=== PATIENT | female | born 1990 | race Caucasian/White ===

== ENCOUNTER 2017-08-28 17:16 | Emergency (ER) | payer MEDICAID, SELFPAY ==
[2017-08-28 17:17] VITALS: BP 139/89; PULSE 111; RESP 18; TEMP 36.4; O2SAT 100; BMI 23.8
--- NOTE | 2017-08-28 17:33 | EKG12_ITS ---
Test Reason : ANXIETY Blood Pressure : / mmHG Vent. Rate : 102 BPM Atrial Rate : 102 BPM P-R Int : 134 ms QRS Dur : 062 ms QT Int : 340 ms P-R-T Axes : 077 077 012 degrees QTc Int : 443 ms Sinus tachycardia Otherwise normal ECG Confirmed by MARK JO, EVERETTE ([id number]), makeup editor DANIS MEDINA ([id number]) on 09/01/2017 1:37:54 PM Referred By: JANICE Confirmed By:EVERETTE FLORES MD
--- NOTE | 2017-08-28 17:59 | ED.DCSUM_ITS ---
- ER Visit Summary Date of Service: 08/28/17 Chief Complaint: Shortness of breath History of Present Illness: The patient is a 27 F presents to the emergency department with rather sudden onset shortness of breath and heart racing. Patient states that she was driving. 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 They were going to the pharmacy to last picker prescription. She states when driving, she got the sudden onset sensation as if she could not breathe. She would like her heart was racing. She became nauseated. The patient has a history of anxiety and felt that this was similar. Her concern is that she has an underlying dental infection. She thinks that this may be bringing on her anxiety. She denies any recent stressors. She did take a Excedrin, but states that she has had caffeine before without issue. She does smoke. She states that her symptoms have improved since arriving here. She has had no chest pain. She denies any pleuritic pain. She has no history of pulmonary embolus. Physical Examination: Vital signs reviewed General: Well-nourished, well-developed Head: Normocephalic, atraumatic Eyes: Pupils equal and reactive, extraocular muscles intact Neck, supple, no lymphadenopathy Heart: Regular rate and rhythm Respiratory: No distress, clear bilaterally Abdomen: Soft, nontender, nondistended, no peritoneal signs Back: Nontender Extremities: Nontender, no edema, no cords Skin: Normal color no rash Neuro: Alert and oriented, no focal or lateralizing deficits Test Results: [] Emergency Department Course and Treatment: The patient's symptoms do seem more consistent with an acute anxiety reaction. She was mildly tachycardic. I did obtain an EKG which is unremarkable. The patient was observed. She has no progression of symptoms. She was concerned about dental infection. She does appear to have a periapical abscess of tooth 11. There is no Bud angina. There is no expanding cellulitis. The patient was counseled on her reassuring exam. I am going to start her on anti-inflammatories and antibiotics for her dental infection. She is given dental resources for follow-up. The patient will be discharged home. Treatment Plan: [] Disposition: Discharge Impression:. Acute anxiety reaction-resolved 2. Periapical abscess tooth 11 This note was generated with [employer] software. It may contain incorrect words, spelling, and punctuation that were not noted in review of the chart prior to signing ED Disposition - Plan for ED Patient: Disposition: Home or Assisted Living Chief Complaint: Anxiety Instructions: ED Cavity Dental, ED Panic Attack Prescriptions: Naproxen [Naprosyn] 500 mg PO BID #20 tab Penicillin V Potassium 500 mg PO 4X/DAY #40 tab Referrals: Care Physician,No Primary [Primary Care Provider] -
[2017-08-28 18:24] VITALS: PULSE 77; RESP 14; O2SAT 99
== END 2017-08-28 18:25 | disposition home or self-care (01) ==
PROVIDERS: Emergency Provider Emergency Medicine
DX: F41.1 Generalized anxiety disorder (principal); K04.7 Periapical abscess without sinus; Z72.0 Tobacco use
CPT/HCPCS: 93005; 99282

== ENCOUNTER 2017-08-29 22:22 | Emergency (ER) | payer MEDICAID, SELFPAY ==
[2017-08-29 22:23] VITALS: BP 119/72; PULSE 81; RESP 14; TEMP 36.7; O2SAT 99; BMI 24.2
--- NOTE | 2017-08-29 23:05 | ED.VISSUMM ---
- ER Visit Summary Date of Service: 08/29/17 Chief Complaint: Facial swelling History of Present Illness: The patient is a 27 F who has had left maxillary focal dental pain for 3 days. She was seen here yesterday and placed on penicillin which she has taken 4 doses of already, however today her face is swollen on the left. She states she noticed some burning in that tooth after taking the penicillin, and seemed to have the swelling more so after taking the pills and so she was wondering if this was a reaction to the pill. He states the pain is actually a little better and not worse. She denies any fevers or systemic symptoms. She does have some problems opening her mouth due to pain however. She denies any rash or itching or tongue swelling or throat swelling or trouble breathing. Physical Examination: Well-appearing in no distress, vital signs are normal. She does have mild trismus but I am easily able to evaluate the tooth in question, which is #12. It is decayed to the gumline, it appears to be fairly focal decay. It is tender especially at the lateral gingiva, which is a little irritated but there is no bleeding. Her swelling is lateral to this, but in palpating intraorally and externally, although she is tender, there is no discrete abscess and there is no pointing in the mouth. Test Results: n/a Emergency Department Course and Treatment: I do not think attempting to aspirate with a needle will yield any purulent material. I think she should be switched to clindamycin from the penicillin, but because it will probably work better, not because I think this is a reaction to it. I discussed that with her, in addition to its higher chance of causing antibiotic associated diarrhea and C. difficile, which is why I recommend her eat yogurt 1-2 cups daily, or to take a daily probiotic while on the antibiotic. Treatment Plan: Discontinue penicillin, clindamycin 300 mg 4 times daily ?10 days, dental follow-up. Also given OMFS if worse. Disposition: Discharge home Impression: Dental abscess This note was generated with [employer] dictation software. It may contain incorrect words, spelling, and punctuation that were not noted in review of the chart prior to signing ED Disposition - Plan for ED Patient: Disposition: Home or Assisted Living Chief Complaint: Dental Instructions: ED Abscess Dental Prescriptions: Clindamycin [Cleocin] 300 mg PO 4X/DAY #80 cap Referrals: Dentist,Your [STAFF PHYSICIAN] - Jian Fermin DDS [STAFF PHYSICIAN] -
[2017-08-29] MEDS: Clindamycin HCl 150 MG Capsule 450 MG PO (23:18)
== END 2017-08-29 23:24 | disposition home or self-care (01) ==
PROVIDERS: Emergency Provider Emergency Medicine
DX: K04.7 Periapical abscess without sinus (principal); Z79.2 Long term (current) use of antibiotics; Z72.0 Tobacco use
CPT/HCPCS: 99283

== ENCOUNTER 2017-12-08 07:30 | Emergency (ER) | payer MEDICAID, SELFPAY ==
[2017-12-08 07:31] VITALS: BP 105/64; PULSE 87; RESP 16; TEMP 36.7; O2SAT 98; BMI 23.1
--- NOTE | 2017-12-08 07:47 | US_ITS ---
STUDY: FIRST TRIMESTER OBSTETRICAL ULTRASOUND REASON FOR EXAM: Female, 27 years old. Right pelvic pain. LMP: September 21, 2017. TECHNIQUE: Transvaginal PRIOR ULTRASOUND: None. FINDINGS: There is visualization of a single gestational sac in a normal intrauterine position. The mean sac diameter (MSD) measures 2.2 cm, indicating an estimated gestational age (EGA) of 7 weeks, 2 days. The gestational sac shape is within normal limits. There is a visualized yolk sac. The yolk sac measures 3 mm. The placenta is non-visualized. There is visualization of a live embryo. The crown-rump length (CRL) measures 1.15 cm, indicating an estimated gestational age (EGA) of 7 weeks, 3 days. There is demonstrated cardiac activity with a heart rate of 146 bpm. A tiny area of decreased attenuation is seen adjacent to the gestational sac suggestive of a small subchronic bleed. The estimated gestation age (EGA) by LMP is 6 weeks, 6 days. The estimated date of delivery (FELICIANO) by LMP is July 28, 2018. The estimated gestation age (EGA) by US is 7 weeks, 3 days. The estimated date of delivery (FELICIANO) by US is July 24, 2018. The uterus measures 10.2 cm x 7.4 cm x 6.3 cm. There is no demonstrated uterine fibroid. The cervix is closed. The right ovary measures 3.1 cm x 1.5 cm x 1.9 cm. There is no right ovarian cyst. There is no visualized right adnexal mass or complex lesion. The left ovary measures 2.1 cm x 1.3 cm x 2.2 cm. There is no left ovarian cyst. There is no visualized left adnexal mass or complex lesion. Small amount of free fluid is seen in the cul-de-sac. US/Transvaginal w/Preg US IMPRESSION: Single live intrauterine gestation with a mean gestational age of 7 weeks and 3 days. Small subchorionic bleed. Electronically Signed: Paulino Madison MD at 9:58 EDT Tel [phone], Service support ,
--- NOTE | 2017-12-08 07:47 | EKG12_ITS ---
Test Reason : SOB Blood Pressure : / mmHG Vent. Rate : 069 BPM Atrial Rate : 069 BPM P-R Int : 118 ms QRS Dur : 072 ms QT Int : 384 ms P-R-T Axes : 024 074 046 degrees QTc Int : 411 ms Normal sinus rhythm with sinus arrhythmia Normal ECG Confirmed by MARK JO, EVERETTE ([id number]), communications editor DANIS MEDINA ([id number]) on 12/10/2017 2:14:32 PM Referred By: TRINA Confirmed By:EVERETTE FLORES MD
--- NOTE | 2017-12-08 07:49 | RAD_ITS ---
STUDY: X-RAY CHEST REASON FOR EXAM: Female, 27 years old. Shortness of breath and flank pain. The patient is 6 weeks . Appropriate shielding was performed. TECHNIQUE: Single AP portable view of the chest. COMPARISON: None. FINDINGS: The lungs are clear and expanded. Scattered calcified granulomas. There is no demonstrated pleural abnormality. Normal size heart. Normal mediastinum and alfredo. Normal visualized pulmonary arteries. Normal visualized aortic arch and descending thoracic aorta. Normal visualized thoracic spine. Normal visualized ribs, clavicles, and shoulders. There is no demonstrated abnormality of the visualized soft tissue structures of the upper abdomen. RAD/Chest 1 View (Portable) IMPRESSION: Normal x-ray examination of the chest. Electronically Signed: Paulino Madison MD at 8:19 EDT Tel [phone], Service support ,
[2017-12-08] MEDS: Ondansetron 4 MG/2 ML Vial IV (08:04)
[2017-12-08] MEDS: 0.9% Normal Saline 1,000 ML 1000 ML IV (08:04)
[2017-12-08 08:20] LABS: Mucous, Urine 0 SEEN /hpf (<or=2+)
[2017-12-08 08:24] LABS: Color, Urine Yellow (Yellow); Glucose, Dipstick Normal (Normal); Ketone-Dipstick Negative (Negative); Leukocyte Esterase-Dipstick 100 /ul (Negative); Nitrite-Dipstick Positive (Negative); Occult Blood-Urine 25 /ul (Negative); Protein-Dipstick Negative (Negative); Specific Gravity, Urine 1.015 (1.002-1.030); Urine Bilirubin Dipstick Negative (Negative); Urine Clarity Sl. Cloudy (Clear); Urine Urobilinogen Normal (Normal)
[2017-12-08 08:25] LABS: Absolute Lymphocyte Count 1.12 X10^3/ul (0.83-4.51); Absolute Neutrophil Count 11.3 X10^3/uL (2.0-7.7); Basophil# 0.02 X10^3/uL; Basophil% 0.1 % (0-1); Eosinophil# 0.02 X10^3/uL; Eosinophils% 0.1 % (0-5); Hemoglobin 12.6 g/dl (12.0-15.0); Lymphocyte # 1.12 X10^3/ul (4.0); Lymphocyte % 8.4 % (19-41); Mean Corp Hgb Conc 33.2 g/gl (32-36); Mean Corpuscular Hgb 29.6 pg (27.0-32.0); Mean Corpuscular Volume 89.2 fL (81-99); Mean Platelet Vol. 9.6 fl (6.2-12.0); Monocyte% 6.7 % (0-10); Neutrophil # 11.32 X10^3/uL (2.7-7.7); Neutrophil % 84.6 % (47-70); Platelet Count 267 K/mm3 (150-450); RBC Distribution Width CV 12.6 % (11.6-14.6); RBC Distribution Width SD 40.1 fl (35.1-43.9); Red Blood Count 4.26 M/mm3 (4.2-5.4); White Blood Count 13.4 K/mm3 (4.4-11.0)
[2017-12-08 08:28] LABS: POSITIVE COUNT NO; POSITIVE DIFFERENTIAL NO; POSITIVE MORPHOLOGY NO
[2017-12-08 08:37] LABS: AST(SGOT) 20 U/L (15-37); Alanine Aminotransfer ALT/SGPT 22 U/L (13-56); Albumin, Serum 3.8 g/dL (3.2-5.0); Alkaline Phosphatase 59 U/L (45-117); Anion Gap 10 (5-15); BUN 7 mg/dL (7-18); BUN/Creat Ratio 11.3 RATIO (10-20); Bilirubin, Direct 0.11 mg/dL (0.00-0.30); Calcium,Total 8.2 mg/dL (8.5-10.1); Chloride 106 mmol/L (98-107); Creatinine, Serum 0.62 mg/dL (0.55-1.02); EST Glomerular Filtration Rate 121 mL/min (>60); Est Glom Filt Rate - Afr Amer 146 mL/min (>60); Estimated Creatinine Clearance 115.61 ml/min; Globulin 3.6 g/dL (2.2-4.2); Glucose 89 mg/dL (74-106); Lipase 85 U/L (73-393); Potassium 4.2 mmol/L (3.5-5.1); Protein, Total 7.4 g/dL (6.4-8.2); Red Blood Cells-Urine 0-5 SEEN /hpf (0-5); Sodium Level 141 mmol/L (136-145); Squamous Epithelial Cells - UA 0-5 SEEN /hpf (5-10); White Blood Cells 5-10 SEEN /hpf (0-5)
[2017-12-08 08:38] LABS: Bacteria 4+ /hpf (None Seen)
--- NOTE | 2017-12-08 08:38 | ED.VISSUMM ---
- ER Visit Summary Date of Service: 12/08/17 Chief Complaint: Right flank pain History of Present Illness: The patient is a [address] Tin Rodriguez and does not have a primary care physician. She is a at approximately 6 weeks . She reports that she has had 4 positive tests at home. She has not seen Dr. Tin Rodriguez for this yet. Patient reports that she has right flank pain that began at 2:00 this morning. It is an intermittent pain that lasts minutes at a time that she describes as sharp. It is 7 out of 10 at worst and she is pain-free currently. Is worsened by nothing relieved by nothing. She denies any vaginal bleeding or discharge. No dysuria or frequency. Patient reports that when the pain was severe that it made her short of breath. The pain has now resolved and she remained short of breath. She denies any chest pain. No fever or chills. Patient reports she has been nauseated and vomited twice. No blood or emesis. She has upper abdominal pain began after her vomiting. Physical Examination: Vitals: Stable. Afebrile. General: Well-nourished and well-developed. Head: Normocephalic atraumatic. Neck: Supple, no lymphadenopathy. No JVD. Nontender. Cardiovascular: Regular rate and rhythm. No murmurs. Respiratory: No respiratory distress. Clear to auscultation bilaterally. Abdominal: Soft, mild epigastric and suprapubic tenderness to palpation, nondistended, normal bowel sounds. No guarding, rebound, or peritoneal signs. Back: Nontender. No CVA tenderness. Extremities: Nontender, no edema. Skin: Normal color, no rash. Neurologic: Alert and oriented ?3. Cranial nerves II through XII are intact. Normal strength and sensation. Psych: Normal affect. Test Results: EKG is sinus arrhythmia 69 with acute changes. Chest x-ray is normal. Blood type is O+. This was not repeated. CBC is marked for a white count of 13.4 with 85 segmented neutrophils and 8 lymphocytes. Chem-7 is more for calcium of 8.2. LFTs are normal. Lipase is normal. UA has leukocytes, nitrites, occult blood, 5-10 white blood cells, and 4+ bacteria. Quantitative hCG is 37,165. Transvaginal ultrasound shows an intrauterine at 7 weeks 3 days with heart tones 146. There is a small subchorionic hemorrhage. Emergency Department Course and Treatment: Patient was given dose of Zofran IV and is resting comfortably. Urine was sent for culture and she was given dose of Rocephin IV. Treatment Plan: Patient was discussed with Dr. Tin Rodriguez. She will be discharged on Macrobid. Instructed to follow-up as previously scheduled. Return to the emergency department for any worsening symptoms. Disposition: To home in improved and stable condition. Impression: 1. First trimester . 2. UTI. This note was generated with [employer] software. It may contain incorrect words, spelling, and punctuation that were not noted in review of the chart prior to signing ED Disposition - Plan for ED Patient: Chief Complaint: Flank Pain Instructions: ED UTI Cystitis Female Prescriptions: Ondansetron [Zofran Odt] 4 mg PO Q8H PRN PRN #10 tablet PRN Reason: Nausea Nitrofurantoin Macrocrystals [Macrobid] 100 mg PO Q12 #14 capsule Referrals: Evelia Askew MD [STAFF PHYSICIAN] - 1 Week if not improving
[2017-12-08] MEDS: Ceftriaxone 1 GM/50 ML BAG IV (09:35)
[2017-12-08 10:36] VITALS: BP 106/63; PULSE 88; RESP 18; O2SAT 100
== END 2017-12-08 10:36 | disposition home or self-care (01) ==
PROVIDERS: Emergency Provider Emergency Medicine
DX: O23.41 Unspecified infection of urinary tract in pregnancy, first trimester (principal); Z3A.01 Less than 8 weeks gestation of pregnancy; O20.9 Hemorrhage in early pregnancy, unspecified; Z72.0 Tobacco use
CPT/HCPCS: 71045; 76817; 80048; 80076; 81001; 83690; 84702; 85025; 87086; 87088; 87186; 93005; 96361; 96365; 96374; 96375; 99283; J7030; J7050; A4216; J2405

== ENCOUNTER → 2017-12-18 18:21 | Outpatient (CLI) | payer MEDICAID, SELFPAY ==
[2017-12-18 20:36] LABS: Chlamydia Trachomatis by PCR Negative (Negative); Neisserai gonorrhoeae by PCR Negative (Negative); Probe Check PASS; Sample Adequacy Control PASS; Specimen Processing Control PASS
[2017-12-24 09:57] LABS: HPV Reflexed? NOT INDICATED
== END ==
PROVIDERS: Visit Provider Obstetrics & Gynecology
DX: O99.331 Smoking (tobacco) complicating pregnancy, first trimester (principal); Z12.4 Encounter for screening for malignant neoplasm of cervix; Z3A.00 Weeks of gestation of pregnancy not specified
CPT/HCPCS: 87086; 87088; 87491; 87591; 88175; G0145

== ENCOUNTER → 2018-02-26 13:58 | Outpatient (CLI) | payer MEDICAID, SELFPAY ==
--- NOTE | 2018-02-26 14:01 | US_ITS ---
STUDY: SECOND AND THIRD TRIMESTER OBSTETRICAL ULTRASOUND REASON FOR EXAM: Female, 27 years old. Anatomy screening. LMP: 10/16/2017 TECHNIQUE: Transabdominal PRIOR ULTRASOUND: 12/18/2017 FINDINGS: There is a single intrauterine fetus. The fetus is in a breech presentation. There is demonstrated cardiac activity with a heart rate of 155 bpm. There is a normal amniotic fluid volume. The largest amniotic fluid pocket measures 4 x 4.5 cm. The placenta is posterior with a marginal previa. There are Grade 0 placental changes. The cervix measures 4.1 cm in length. The bilateral adnexal regions are normal. BIOMETRY: BPD: 4 cm: 18 weeks, 1 days HC: 15.6 cm: 18 weeks, 4 days AC: 13.3 cm: 18 weeks, 6 days FL: 2.8 cm: 18 weeks, 4 days CI: 76 FL/BPD: 70 FL/HC: FL/AC: 21 HC/AC: 1.17 age by current US: 18 weeks, 4 days. FELICIANO by current US: 07/26/2018. Estimated weight: 250 grams, +/- 37 grams, 26 %. age by prior US: 18 weeks, 6 days. FELICIANO by prior US: 07/24/2018. Age by LMP: 19 weeks, 0 days. FELICIANO by LMP: 07/23/2018. ANATOMY: Gender: Male Cranium: Normal lateral ventricles. Normal choroid plexus. Normal cerebellum. Normal cisterna magna. Normal face, nose and lips. Chest: Normal 4-chamber heart. Abdomen/Pelvis: Normal diaphragm. Normal stomach. Normal abdominal wall. Normal cord insertion. Normal 3 vessel cord. Normal kidneys. Normal bladder. Spine: Normal cervical spine. Normal thoracic spine. Normal lumbar spine. Normal sacrum. Extremities: Normal bilateral upper extremities. Normal bilateral lower extremities. US/OB Anatomy Scan IMPRESSION: 1. Single live intrauterine in breech presentation 18 week 4 day gestation with an FELICIANO of 07/26/2018. Appropriate interval growth. 2. Posterior placenta with marginal previa. No abruption. 3. Cervix length 4.1 cm, closed internal cervical os. 4. Normal amniotic fluid volume by inspection. 5. Estimated weight 250 g or 26 percentile. 6. Normal anatomic review. Electronically Signed: Barbra Peterson MD at 3:26 EDT , Service support ,
== END ==
PROVIDERS: Visit Provider Nurse Practitioner Women's Health
DX: O09.90 Supervision of high risk pregnancy, unspecified, unspecified trimester (principal); O34.40 Maternal care for other abnormalities of cervix, unspecified trimester; Z98.890 Other specified postprocedural states; O99.330 Smoking (tobacco) complicating pregnancy, unspecified trimester; Z3A.00 Weeks of gestation of pregnancy not specified
CPT/HCPCS: 76805

== ENCOUNTER 2018-03-22 18:29 | Emergency (ER) | payer MEDICAID, SELFPAY ==
[2018-03-22 18:29] VITALS: BP 123/88; PULSE 78; RESP 16; TEMP 36.6; BMI 27.2
--- NOTE | 2018-03-22 19:01 | ED.VISSUMM ---
- ER Visit Summary Date of Service: 03/22/18 Chief Complaint: Dental pain History of Present Illness: The patient is a 27 F who is 5-1/2 months presents with dental pain for a few weeks however worse today. No fever chills the pain radiates higher in her job than usual. No problems swallowing. No difficulty with movement of the eye. Physical Examination: Otherwise unremarkable exam, she has a gravid abdomen which is nontender. She has dental tenderness over the right upper lateral incisor. This is a decayed tooth. No periapical abscess no significant facial swelling. Emergency Department Course and Treatment: Patient is tell me her pain is somewhat worse than normal and it radiates into her jaw worse than before, this may be an early infection I will treat with penicillin. Discharge stable condition Impression: [Odontalgia] This note was generated with [employer] dictation software. It may contain incorrect words, spelling, and punctuation that were not noted in review of the chart prior to signing ED Disposition - Plan for ED Patient: Disposition: Home or Assisted Living Chief Complaint: Dental Instructions: ED Tooth Pain Prescriptions: Penicillin V Potassium 500 mg PO 4X/DAY #40 tab Referrals: Evelia Askew MD [Primary Care Provider] - 3-5 Days
--- NOTE | 2018-03-22 19:04 | ED.DCSUM_ITS ---
- ER Visit Summary Date of Service: 03/22/18 Chief Complaint: Dental pain History of Present Illness: The patient is a 27 F who is 5-1/2 months presents with dental pain for a few weeks however worse today. No fever chills the pain radiates higher in her job than usual. No problems swallowing. No difficulty with movement of the eye. Physical Examination: Otherwise unremarkable exam, she has a gravid abdomen which is nontender. She has dental tenderness over the right upper lateral incisor. This is a decayed tooth. No periapical abscess no significant facial swelling. Emergency Department Course and Treatment: Patient is tell me her pain is somewhat worse than normal and it radiates into her jaw worse than before, this may be an early infection I will treat with penicillin. Discharge stable condition Impression: [Odontalgia] This note was generated with [employer] dictation software. It may contain incorrect words, spelling, and punctuation that were not noted in review of the chart prior to signing ED Disposition - Plan for ED Patient: Disposition: Home or Assisted Living Chief Complaint: Dental Instructions: ED Tooth Pain Prescriptions: Penicillin V Potassium 500 mg PO 4X/DAY #40 tab Referrals: Evelia Askew MD [Primary Care Provider] - 3-5 Days
== END 2018-03-22 19:20 | disposition home or self-care (01) ==
PROVIDERS: Emergency Provider Emergency Medicine; Family Provider Obstetrics & Gynecology; PCP Obstetrics & Gynecology
DX: K08.89 Other specified disorders of teeth and supporting structures (principal); K02.9 Dental caries, unspecified
CPT/HCPCS: 99282

== ENCOUNTER → 2018-04-27 11:45 | Outpatient (CLI) | payer MEDICAID, SELFPAY ==
[2018-04-27 11:36] VITALS: BMI 29.0
[2018-04-27 12:44] LABS: Absolute Lymphocyte Count 1.79 X10^3/ul (0.83-4.51); Basophil# 0.02 X10^3/uL; Basophil% 0.2 % (0-1); Eosinophil# 0.08 X10^3/uL; Eosinophils% 0.7 % (0-5); Hematocrit 32.9 % (37-47); Hemoglobin 10.8 g/dl (12.0-15.0); Lymphocyte # 1.79 X10^3/ul (4.0); Lymphocyte % 16.5 % (19-41); Mean Corp Hgb Conc 32.8 g/gl (32-36); Mean Corpuscular Hgb 31.4 pg (27.0-32.0); Mean Corpuscular Volume 95.6 fL (81-99); Mean Platelet Vol. 9.9 fl (6.2-12.0); Monocyte# 0.92 X10^3/uL; Monocyte% 8.5 % (0-10); Neutrophil # 8.02 X10^3/uL (2.7-7.7); Neutrophil % 73.8 % (47-70); Platelet Count 257 K/mm3 (150-450); RBC Distribution Width CV 12.6 % (11.6-14.6); RBC Distribution Width SD 42.2 fl (35.1-43.9); Red Blood Count 3.44 M/mm3 (4.2-5.4); White Blood Count 10.9 K/mm3 (4.4-11.0)
[2018-04-27 12:50] LABS: POSITIVE COUNT NO; POSITIVE DIFFERENTIAL NO; POSITIVE MORPHOLOGY NO
[2018-04-27 13:16] LABS: Glucose Challenge Gest 1H 50g 85 mg/dL (70-140)
[2018-04-27 13:54] LABS: HIV - WCH Non-Reactive (Nonreactive); Rubella IgG 210.9 IU/mL
[2018-04-28 12:51] LABS: HEPATITIS B SURFACE AG Negative (Negative)
[2018-04-30 02:02] LABS: Rapid Plasmin Reagin (RPR) NONREACTIVE (NONREACTIVE)
== END ==
PROVIDERS: Family Provider Obstetrics & Gynecology; PCP Obstetrics & Gynecology; Referring Provider Nurse Practitioner Women's Health; Visit Provider Nurse Practitioner Women's Health
DX: Z34.90 Encounter for supervision of normal pregnancy, unspecified, unspecified trimester (principal); O99.331 Smoking (tobacco) complicating pregnancy, first trimester; F17.200 Nicotine dependence, unspecified, uncomplicated; Z3A.00 Weeks of gestation of pregnancy not specified
CPT/HCPCS: 36415; 82950; 85025; 86592; 86703; 86762; 86850; 86900; 87340

== ENCOUNTER → 2018-06-02 12:31 | Outpatient (CLI) | payer MEDICAID, SELFPAY ==
[2018-05-24 15:03] VITALS: BMI 29.0
--- NOTE | 2018-06-02 12:33 | US_ITS ---
STUDY: SECOND AND THIRD TRIMESTER OBSTETRICAL ULTRASOUND - LIMITED REASON FOR EXAM: Female, 27 years old. growth. LMP: September 21, 2017. PRIOR ULTRASOUND: December 08, 2017 and February 26, 2018. TECHNIQUE: Transabdominal and Transvaginal TECHNICAL QUALITY: Adequate. FINDINGS: There is a single intrauterine fetus. The fetus is in a breech presentation. There is demonstrated cardiac activity with a heart rate of 140 bpm. There is increased amniotic fluid volume consistent with polyhydramnios. The largest amniotic fluid pocket measures 6.03 cm. The amniotic fluid index (JENNIFER) is 22.3 cm. The placenta is posterior in location and is not low lying. The inferior aspect of the placenta lies 2.4 cm from the internal os. There are Grade 1 placental changes. The cervix measures 3.38 cm cm in length. BIOMETRY: BPD: 8.13 cm: 32 weeks, 5 days HC: 30.23 cm: 33 weeks, 5 days AC: 28.36: 32 weeks, 3 days FL: 6.31 cm: 32 weeks, 5 days Age by LMP: 32 weeks, 0 days. FELICIANO by LMP: July 28, 2018. age by prior US: 32 weeks, 4 days. FELICIANO by prior US: July 24, 2018. age by current US: 33 weeks, 0 days. FELICIANO by current US: July 21, 2018. Estimated weight: 2011 grams, +/- 294 grams, 37 percentile. US/OB Limited With Biometrics IMPRESSION: 1. Live single intrauterine at 33 weeks, 0 days. FELICIANO is July 21, 2018. There is adequate interval growth since the initial ultrasound. 2. EFW of 2011 g. 3. Polyhydramnios. The JENNIFER is 22.3 cm. 4. Posterior grade 1 placenta. 5. Breech presentation. Electronically Signed: Héctor Victor DO at 16:30 EST Tel [phone], Service support ,
== END ==
PROVIDERS: Family Provider Obstetrics & Gynecology; PCP Obstetrics & Gynecology; Referring Provider Obstetrics & Gynecology; Visit Provider Obstetrics & Gynecology
DX: O40.9XX0 Polyhydramnios, unspecified trimester, not applicable or unspecified (principal); Z3A.00 Weeks of gestation of pregnancy not specified
CPT/HCPCS: 76816

== ENCOUNTER → 2018-06-11 17:25 | Outpatient (CLI) | payer MEDICAID, SELFPAY ==
[2018-06-11 13:50] VITALS: BMI 29.7
[2018-06-11 18:23] LABS: Amphetamine Urine VISTA NEGATIVE (<1000 ng/mL); Barbiturate Urine VISTA NEGATIVE (< 200 ng/mL); Benzodiazepine Urine VISTA NEGATIVE (< 200 ng/mL); Cocaine Urine VISTA NEGATIVE (< 300 ng/mL); Ecstacy Urine VISTA NEGATIVE (< 500 ng/mL); Methadone Urine VISTA NEGATIVE (< 300 ng/mL); PCP Urine VISTA NEGATIVE (< 25 ng/mL); THC Urine VISTA NEGATIVE (< 50 ng/mL); Vista UDS pH Range 6
== END ==
PROVIDERS: Referring Provider Obstetrics & Gynecology; Visit Provider Obstetrics & Gynecology
DX: O99.330 Smoking (tobacco) complicating pregnancy, unspecified trimester (principal); F17.200 Nicotine dependence, unspecified, uncomplicated; Z3A.00 Weeks of gestation of pregnancy not specified
CPT/HCPCS: 80307

== ENCOUNTER → 2018-07-05 17:59 | Outpatient (CLI) | payer MEDICAID, SELFPAY ==
[2018-07-05 16:59] VITALS: BMI 29.7
== END ==
PROVIDERS: Referring Provider Nurse Practitioner Women's Health; Visit Provider Nurse Practitioner Women's Health
DX: O09.90 Supervision of high risk pregnancy, unspecified, unspecified trimester (principal); Z3A.00 Weeks of gestation of pregnancy not specified
CPT/HCPCS: 87081

== ENCOUNTER 2018-07-22 06:55 | Inpatient (IN) | payer MEDICAID, SELFPAY ==
[2018-07-19 15:27] VITALS: BMI 29.7
[2018-07-22 07:30] VITALS: BMI 31.1
[2018-07-22] MEDS: Lactated Ringers 1,000 ML 50 ML IV ×3 (07:38→15:22)
[2018-07-22] MEDS: Oxytocin 30 units/NS 500 ml 30 UNITS/500 ML IV.SOLN IV (08:34)
[2018-07-22 11:33] LABS: Hematocrit 36.9 % (37-47); Hemoglobin 11.8 g/dl (12.0-15.0); Mean Corpuscular Hgb 30.6 pg (27.0-32.0); Mean Corpuscular Volume 95.6 fL (81-99); Mean Platelet Vol. 10.9 fl (6.2-12.0); Platelet Count 232 K/mm3 (150-450); RBC Distribution Width CV 13.3 % (11.6-14.6); RBC Distribution Width SD 45.8 fl (35.1-43.9); Red Blood Count 3.86 M/mm3 (4.2-5.4); Scan Indicated on CBC? Y/N NO; White Blood Count 9.6 K/mm3 (4.4-11.0)
[2018-07-22] MEDS: fentaNYL-bupivacaine (epidural) 100 ML BAG EPIDURAL (11:56)
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
--- NOTE | 2018-07-22 16:17 | PCM.OB.VAG ---
- Problem List (1) Polyhydramnios affecting Status: Acute Comment: Weekly NST with growth US q4wk- Needs growth US at 39 weeks. (2) Status: Acute Qualifiers: Weeks of gestation: 39 weeks Qualified Code(s): Z3A.39 - 39 weeks gestation of Comment: genetic, carrier, and ntd screening declined. anatomy scan reviewed. (3) History of LEEP (loop electrosurgical excision procedure) of cervix complicating Status: Acute Qualifiers: Trimester: third trimester Qualified Code(s): O34.43 - Maternal care for other abnormalities of cervix, third trimester; Z98.890 - Other specified postprocedural states Comment: check cervical length (4) Tobacco use complicating Status: Acute Qualifiers: Trimester: third trimester Qualified Code(s): O99.333 - Smoking (tobacco) complicating , third trimester Comment: quit. (5) Supervision of high-risk Status: Acute Qualifiers: Trimester: third trimester Qualified Code(s): O09.93 - Supervision of high risk , unspecified, third trimester Comment: PRR FELICIANO 07/21/18 boy PC godfrey Godfrey Vaginal Delivery Maternal Presentation: Active Labor iol poly Method of Induction: Pitocin Amniotic Membrane Rupture Type: Artificial Amniotic Fluid Description: Clear Final FELICIANO: 07/30/18 Gestational age: 39 Weeks and 3 Days Date of Procedure: 07/22/18 Pre-Operative Diagnosis: iol poly Post-Operative Diagnosis: same Surgery/ Procedure Performed: Spontaneous Vaginal Delivery Type of Anesthesia: Epidural Description of Procedure: Patient began pushing and delivered the head in the CHEVY presentation. The head was delivered atraumatically and a loose nuchal cord ?1 was identified and easily reduced over the 's head The anterior and posterior shoulders delivered without complication followed by the rest of the infant and the was placed on the maternal abdomen. Delayed cord clamping was employed for approximately 60 seconds. Cord was clamped and cut and gentle traction was applied to the cord and the placenta delivered spontaneously immediately following it was noted to be intact with three-vessel cord. The perineum and vagina were inspected and noted to have no laceration. Patient and tolerated delivery well. Presentation: CHEVY Placental Delivery Description: Spontaneous
[2018-07-22] MEDS: Oxytocin 30 units/NS 500 ml 30 UNITS/500 ML IV.SOLN 334 UNITS IV (16:57)
[2018-07-22] MEDS: Oxytocin 30 units/NS 500 ml 30 UNITS/500 ML IV.SOLN 167 UNITS IV (17:28)
[2018-07-22 20:30] VITALS: BP 120/65; PULSE 96; RESP 16; TEMP 37.1; O2SAT 97
[2018-07-23 00:11] VITALS: BP 100/56; PULSE 84; RESP 16; TEMP 37; O2SAT 98
[2018-07-23 04:45] VITALS: BP 103/59; PULSE 83; RESP 14; TEMP 36.8; O2SAT 97
[2018-07-23] MEDS: Naproxen 250 MG Tablet PO (06:58)
[2018-07-23 07:30] VITALS: BP 104/59; PULSE 73; RESP 16; TEMP 36.8; O2SAT 97
[2018-07-23 11:50] VITALS: BP 107/57; PULSE 83; RESP 14; TEMP 36.7; O2SAT 97
[2018-07-23] MEDS: Senna/Docusate Sodium 1 Tablet PO (12:08)
[2018-07-23 15:55] VITALS: BP 96/46; PULSE 77; RESP 18; TEMP 36.8; O2SAT 97
--- NOTE | 2018-07-23 17:45 | PCM.PN.OB ---
Subjective: doing well no complaints - Physical Exam General: Alert, Oriented x3 Vital Signs Temp Pulse Resp BP Pulse Ox 98.3 F 77 18 96/46 L 97 07/23/18 15:55 07/23/18 15:55 07/23/18 15:55 07/23/18 15:55 07/23/18 15:55 Oxygen Delivery Method Room Air Weight: 181 lb 10.574 oz Body Mass Index (BMI) 31.1 Intake and Output for Last 24 Hours 07/21/18 07/22/18 07/23/18 23:59 23:59 23:59 Intake Total 3508 / 3508 Output Total 2200 / 2200 700 / 700 Balance 1308 / 1308 -700 / -700 Medical Necessity - Tobacco Use Smoking Status: Former smoker Assessment/Plan All Active Problems (Last Reviewed 07/19/18 @ 15:27 by Tosin Killian) Polyhydramnios affecting (Acute) (Acute) History of LEEP (loop electrosurgical excision procedure) of cervix complicating (Acute) Tobacco use complicating (Acute) Supervision of high-risk (Acute) Low lying placenta nos or without hemorrhage, third trimester (Resolved) Marginal placenta previa (Resolved) (Resolved) s/p routine care [facility] lisa
[2018-07-23 20:20] VITALS: BP 99/62; PULSE 85; RESP 16; TEMP 37.1; O2SAT 99
[2018-07-24 02:20] VITALS: BP 107/56; PULSE 82; RESP 16; TEMP 36.7; O2SAT 96
[2018-07-24 07:33] VITALS: BP 102/55; PULSE 78; RESP 16; TEMP 36.7; O2SAT 99
--- NOTE | 2018-07-24 07:37 | PCM.PN.OB ---
Subjective: doing well still having signfiicant anxiety symptos no depression - Physical Exam General: Alert, Oriented x3 Vital Signs Temp Pulse Resp BP Pulse Ox 98.0 F 78 16 102/55 L 99 07/24/18 07:33 07/24/18 07:33 07/24/18 07:33 07/24/18 07:33 07/24/18 07:33 Oxygen Delivery Method Room Air Weight: 181 lb 10.574 oz Body Mass Index (BMI) 31.1 Intake and Output for Last 24 Hours 07/22/18 07/23/18 07/24/18 23:59 23:59 23:59 Intake Total 3508 / 3508 Output Total 2200 / 2200 700 / 700 Balance 1308 / 1308 -700 / -700 Medical Necessity - Tobacco Use Smoking Status: Former smoker Assessment/Plan All Active Problems (Last Reviewed 07/19/18 @ 15:27 by Tosin Killian) Polyhydramnios affecting (Acute) (Acute) History of LEEP (loop electrosurgical excision procedure) of cervix complicating (Acute) Tobacco use complicating (Acute) Supervision of high-risk (Acute) Low lying placenta nos or without hemorrhage, third trimester (Resolved) Marginal placenta previa (Resolved) (Resolved) s/p routine care anxiety- start zoloft
--- NOTE | 2018-07-24 07:39 | DCINST_ITS ---
Discharge Diet: No Restrictions Discharge Activity: Return to Normal Activity, May not drive while taking narcotic pain medications., May Shower May resume sexual activity in: 4-6 weeks Call your doctor if your incision/area has: Continuous Slow Oozing, Sudden Increased Bleeding, Increased Pain/ Swelling, Increased Redness, Foul Smelling Discharge Additional Instructions: If you experience any of the following, contact your healthcare provider. * Bleeding that soaks a pad every hour for 2 hours * Fever 100.4 or higher * Unrelieved incision or abdominal pain * Swelling, redness, discharge or bleeding from your incision or episiotomy site * Your incision begins to separate * Problems urinating (including inability to urinate or burning while urinating). * Visual changes * Severe headache * Flu-like symptoms * Pain or redness in one of both of your breasts * Pain, warmth, tenderness or swelling in your legs, especially the calf area * Frequent nausea and vomiting * Symptoms of depression or anxiety If you experience any of the following, call 911 or go to the nearest Emergency Room. * Chest pain * Problems breathing * Seizure activity * Partial or complete paralysis of a body part, slurred speech, weakness or drooping of the face, or a sudden inability to walk or hold your balance Allergies/Adverse Reactions: Allergies sulfamethoxazole [From Bactrim] Allergy (Verified 07/22/18 07:36) Rash trimethoprim [From Bactrim] Allergy (Verified 07/22/18 07:36) Rash Medications to take at Discharge vitamin#30 30 mg iron-10 mg iron-folic acid 1 mg-omg3 capsule 1 cap PO DAILY cap 05/24/18 Sertraline HCl [Zoloft] 50 mg PO DAILY #30 tablet 07/24/18 The following prescriptions were given: Sertraline HCl [Zoloft] 50 mg PO DAILY #30 tablet Please Follow Up With: Evelia Askew MD - [phone] When: Call to make an appointment with your doctor in 6 weeks. If you had elevated Blood pressure or 4th degree laceration you will need to be seen in 2 weeks. Test Results: Test results from this visit will be discussed in further detail at your follow- up appointment, if applicable.
[2018-07-24 11:37] VITALS: BP 104/56; PULSE 64; RESP 16; TEMP 36.7; O2SAT 99
== END 2018-07-24 12:05 | disposition home or self-care (01) | DRG 560 ==
PROVIDERS: Admitting Provider Obstetrics & Gynecology; Visit Provider Obstetrics & Gynecology
DX: O69.81X0 Labor and delivery complicated by cord around neck, without compression, not applicable or unspecified (principal); O40.3XX0 Polyhydramnios, third trimester, not applicable or unspecified; Z3A.39 39 weeks gestation of pregnancy; Z37.0 Single live birth; Z87.891 Personal history of nicotine dependence; O99.344 Other mental disorders complicating childbirth; F41.9 Anxiety disorder, unspecified
CPT/HCPCS: 59025; 59050; 85027; 86850; 86900; 99218; J7120; G0378

== ENCOUNTER 2019-10-07 17:09 | Emergency (ER) | payer MEDICAID, SELFPAY ==
[2018-09-08 15:41] VITALS: BMI 31.1
[2019-10-07 17:09] VITALS: BP 102/67; PULSE 134; RESP 16; TEMP 36.5; O2SAT 98
[2019-10-07 17:10] VITALS: BP 102/67; PULSE 136; RESP 18; TEMP 36.5; O2SAT 98; BMI 24.0
--- NOTE | 2019-10-07 17:39 | ED.DCSUM_ITS ---
History of Present Illness Chief Complaint: Sore Throat Informant: Patient Onset: Yesterday Context: Gradual Onset Timing: Continuous Worsened by: Swallowing Associated Symptoms: Headache, - - left ear pain Narrative: Patient is a 29-year-old female with no significant past medical history presenting with sore throat, left-sided ear pain/pressure, intermittent headache and subjective fever. Patient states her symptom started yesterday. She states her son was sick about 2 weeks ago with a viral illness. She has not had any fever like symptoms today. States that sore throat and ear pain is all on the left side. Is painful to swallow. She is not taken any [id number] medications for her symptoms. She denies any associated cough, rash, chest pain, nausea, vomiting or abdominal pain. She denies any urinary symptoms. She notes that she works at [employer]. She is wondering if she could have coronavirus. She not had any known exposures. She denies any other complaints at this time. Past Medical History - Allergies and Home Meds Allergies/Adverse Reactions: Allergies sulfamethoxazole [From Bactrim] Allergy (Verified 09/08/18 15:04) Rash trimethoprim [From Bactrim] Allergy (Verified 09/08/18 15:04) Rash Primary Care Physician: Care Physician,No Primary [Primary Care Provider] - Past Medical History: None Surgical History: appendectomy Lives: With Family Smoking Status: Current every day smoker Review of Systems General: Reports: Chills, Fever. Denies: Sweats Eyes: Denies: Visual changes - bilaterally, Diplopia ENT: Reports: Left ear pain, Sore throat. Denies: Right ear pain, Rhinorrhea Cardiovascular: Denies: Chest pain, Palpitations Respiratory: Denies: Dyspnea, Cough, Dyspnea on exertion Gastrointestinal: Denies: Abdominal pain, Nausea, Vomiting, Diarrhea, Melena, Hematochezia Genitourinary: Denies: Dysuria, Hematuria, Frequency Musculoskeletal: Denies: Back pain, Extremity Pain Skin: Denies: Rash, Wounds Neurological: Denies: Headache, Weakness, Numbness Physical Exam Vital Signs/Narrative: Vital Signs Temp Pulse Resp BP Pulse Ox 10/07/19 17:10 97.7 F L 136 H 18 102/67 98 10/07/19 17:09 97.7 F L 134 H 16 102/67 98 Inital Vital Signs reviewed: Yes General: Well nourished, Well developed Head: Normocephalic, Atraumatic Eyes: Perrl, EOMI Ears: Normal external canal, TM's clear. Negative for: Pain with Movement of Right Tragus, Pain with Movement of Left Tragus, Right Mastoid Tenderness, Left Mastoid Tenderness Nose: Normal Inspection, No Rhinorrhea. Negative for: Swollen Turbinates Mouth/Throat: Normal Inspection, Posterior Oropharyngeal Erythema, - - 2 small vesicular lesions noticed in the posterior oropharynx Tonsils: Right Tonsilar Erythema, Left Tonsilar Erythema. Negative for: Right Tonsilar Exudates, Left Tonsilar Exudates, Right Tonsilar Swelling, Left Tonsilar Swelling Neck: Supple, Nontender, No Lymphadenopathy, No Meningismus Cardiovascular: Regular rate, Regular rhythm, No murmurs Respiratory: No distress, CTA bilaterally, Chest nontender Abdomen: Soft, Nontender, Nondistended, Normal bowel sounds Back: Nontender, Normal Inspection Extremities: Nontender, No edema Skin: Normal color, No rash Neurological: Alert, Oriented x3, Cranial nerves II-XII grossly intact, Normal Strength, Normal Sensation Psychological: Normal affect Diagnostic/Tx/Re-eval - Medical Decision Making Patient is evaluated for days of sore throat, left ear pain and subjective fever. Physical exam is consistent with pharyngitis. Strep swab is positive for group A strep. Patient is given Tylenol for pain. On reevaluation she states she is feeling better. She is also given oral Decadron. Patient be treated with Augmentin. She is given first dose in the emergency room. She declines IM Bicillin. Patient is counseled that her presentation is atypical for coronavirus and I do not suspect that she has COVID-19. She is given a work note for today. Patient is counseled on signs and symptoms requiring return to the emergency room. Patient verbalizes agreement and understand this plan. Patient discharged home in stable and improved condition. ED Disposition - Plan for ED Patient: Disposition: Home or Assisted Living Diagnosis: Strep pharyngitis Instructions: ED Pharyngitis Strep Confirmed Prescriptions: Amox/Clavulanate Tablet [Augmentin Tablet] 875 mg PO Q12H #20 tab Transmission Status: Pending to [email or web address] #30 Referrals: Donovan Hurtado MD [STAFF PHYSICIAN] - Additional Instructions: Your swab was positive for strep. I do not think you have coronavirus. Please follow-up with a primary care doctor. Return the emergency room with any worsening symptoms.
[2019-10-07] MEDS: dexAMETHasone 10 MG/ML Vial PO.IVFORM (18:12)
[2019-10-07] MEDS: Acetaminophen 325 MG Tablet 1000 MG PO (18:12)
[2019-10-07 18:54] VITALS: BP 104/60; PULSE 108; O2SAT 97
[2019-10-07] MEDS: Amox/Clavulanate 875 MG Tablet PO (19:02)
== END 2019-10-07 19:13 | disposition home or self-care (01) ==
PROVIDERS: Emergency Provider Emergency Medicine
DX: J02.0 Streptococcal pharyngitis (principal); F17.200 Nicotine dependence, unspecified, uncomplicated
CPT/HCPCS: 87880; 99284

== ENCOUNTER 2020-04-15 12:29 | Emergency (ER) | payer MEDICAID, SELFPAY ==
[2020-04-15 12:30] VITALS: BP 115/69; PULSE 123; RESP 16; TEMP 39.3; O2SAT 99; BMI 22.8
[2020-04-15 12:33] VITALS: BP 115/69; PULSE 123; RESP 16; TEMP 39.3; O2SAT 99
--- NOTE | 2020-04-15 12:59 | ED.VIS.GEN ---
History of Present Illness Chief Complaint: Sore Throat Informant: Patient Onset: Yesterday Context: Sudden Onset Timing: Continuous Quality: Throat pain with change in voice Location: Posterior pharynx Current Severity: Mild Maximum Severity: Moderate Worsened by: Swallowing liquids or solids Relieved by: Nothing Associated Symptoms: Change in voice. Denies trismus and has no upper respiratory symptoms. Narrative: Patient is a 29-year-old woman who presents with sore throat change in voice that started yesterday. She reports document temperature at home of 101.0 ?F. She denies headache, photophobia, neck pain or neck stiffness. She denies rhinorrhea, congestion or postnasal drainage. She denies earache, decreased hearing or drainage from ears. She denies chest pain. She denies shortness of breath or cough. She denies myalgias or arthralgias. She denies exposure to COVID-19. She denies rash. She denies nausea, vomiting diarrhea. She states she lives with her boyfriend who drove her to the emergency department. Prior similar symptoms: No Recent Illness/Hospitalization: No - Past Medical History (1) No significant past medical history Status: Acute Past Medical History - Allergies and Home Meds Allergies/Adverse Reactions: Allergies sulfamethoxazole [From Bactrim] Allergy (Verified 04/15/20 12:33) Rash trimethoprim [From Bactrim] Allergy (Verified 04/15/20 12:33) Rash Primary Care Physician: Care Physician,No Primary [Primary Care Provider] - Prior records reviewed: No Past Medical History: None Surgical History: appendectomy Lives: Spouse/ Significant Other Smoking Status: Current every day smoker Alcohol: None Drugs: None Review of Systems General: Reports: Chills, Fever, Malaise. Denies: Subjective, Sweats Eyes: Denies: Visual changes - bilaterally, Blurred Vision - bilaterally ENT: Reports: Sore throat. Denies: Bilateral ear pain, Rhinorrhea Cardiovascular: Denies: Chest pain, Palpitations Respiratory: Denies: Dyspnea, Cough, Dyspnea on exertion Gastrointestinal: Denies: Abdominal pain, Nausea, Vomiting, Diarrhea Genitourinary: Denies: Dysuria, Hematuria, Frequency Musculoskeletal: Denies: Myalgias, Arthralgias, Neck pain, Back pain Skin: Denies: Rash, Wounds Neurological: Reports: Weakness. Denies: Headache Endocrine: Denies: Polyuria, Polydipsia Physical Exam Vital Signs/Narrative: Vital Signs Temp Pulse Resp BP Pulse Ox 04/15/20 12:33 102.8 F H 123 H 16 115/69 99 04/15/20 12:30 102.8 F H 123 H 16 115/69 99 Inital Vital Signs reviewed: Yes General: Well nourished, Well developed, - - Patient appears ill but not toxic. Head: Normocephalic, Atraumatic Eyes: Perrl, EOMI. Negative for: Pale conjunctiva, Scleral icterus ENT: Moist mucous membranes, No rhinorrhea, TM's clear, - - Tonsils are enlarged. There is exudate noted on the right. There is evidence of peritonsillar cellulitis on the right. There is no obvious evidence of peritonsillar abscess. There is no trismus.. Negative for: Nasal congestion, Sinus tenderness Neck: Supple, Nontender, No JVD. Negative for: No lymphadenopathy Cardiovascular: Regular rhythm, No murmurs, Normal S1, Normal S2, Tachycardia Respiratory: No distress, CTA bilaterally, Chest nontender Abdomen: Soft, Nontender, Nondistended, Normal bowel sounds, No masses. Negative for: Hepatomegaly, Splenomegaly Rectal: Deferred Back: Nontender Extremities: Nontender, No edema Skin: Normal color, No rash, No Trauma. Negative for: Cyanosis, Diaphoresis, Jaundice Neurological: Alert, Oriented x3, Cranial nerves II-XII grossly intact, Normal Strength, Normal Sensation Psychological: Normal affect Diagnostic/Tx/Re-eval 04/15/20 12:40 Mucosa - Throat Group A Streptococcus Rapid Screen - Final Streptococcus Group A Laboratory Results 04/15/20 13:10 WBC 17.2 H RBC 4.36 Hgb 12.8 Hct 39.6 MCV 90.8 MCH 29.4 MCHC 32.3 RDW Std Deviation 42.3 RDW Coeff of Chris 12.7 Plt Count 276 MPV 9.4 Immature Gran % (Auto) 0.500 Neut % (Auto) 84.2 H Lymph % (Auto) 6.1 L [place] % (Auto) 9.0 Eos % (Auto) 0.0 Baso % (Auto) 0.2 Absolute Neuts (auto) 14.5 H Absolute Lymphs (auto) 1.05 Nucleated RBC % 0 White count is elevated with no atypical lymphocytes. Rapid strep is positive. Patient will be treated with antibiotics. She will receive her first dose in the emergency department. - Medical Decision Making Centor score is 4. Rapid strep screen was obtained. CBC was obtained to assess for atypical lymphocytes and his Monospot only has a 5% sensitivity with duration of illness of only 24 hours. Clinically she appears dehydrated. She was given IV fluids. 10 mg of Decadron. Differential diagnosis includes viral pharyngitis/exit-itis, streptococcal tonsillitis, mononucleosis ED Disposition - Plan for ED Patient: Disposition: Home or Assisted Living Diagnosis: Acute streptococcal tonsillitis, Mild dehydration, Peritonsillar cellulitis Instructions: ED Peritonsillar Inf Strep Throat Prescriptions: Amox/Clavulanate Tablet [Augmentin Tablet] 875 mg PO Q12H #20 tab Transmission Status: Pending to [facility] #30 Referrals: Care Physician,No Primary [Primary Care Provider] - Additional Instructions: 1. If you have any drooling, difficulty breathing or inability to open your mouth completely return to the emergency department 2. If there is no improvement in 2 to 3 days follow-up with your PCP or Dr. Dawson Rosado who is on-call for ENT 3. Salt water gargles 6-8 times a day (2 tablespoon of salt in a glass of water.)
[2020-04-15] MEDS: 0.9% Normal Saline 1,000 ML 1000 ML IV (13:16)
[2020-04-15] MEDS: dexAMETHasone 10 MG/ML Vial IV (13:16)
[2020-04-15 13:22] LABS: Absolute Lymphocyte Count 1.05 X10^3/uL (0.83-4.51); Absolute Neutrophil Count 14.5 X10^3/uL (2.0-7.7); Basophil# 0.03 X10^3/uL; Basophil% 0.2 % (0-1); Hematocrit 39.6 % (37-47); Hemoglobin 12.8 g/dL (12.0-15.0); Lymphocyte # 1.05 X10^3/ul (4.0); Lymphocyte % 6.1 % (19-41); Mean Corp Hgb Conc 32.3 g/dL (32-36); Mean Corpuscular Hgb 29.4 pg (27.0-32.0); Mean Corpuscular Volume 90.8 fL (81-99); Mean Platelet Vol. 9.4 fl (6.2-12.0); Monocyte# 1.55 X10^3/uL; NRBC Flagged by Analyzer 0 % (0-5); Neutrophil # 14.51 X10^3/uL (2.7-7.7); Neutrophil % 84.2 % (47-70); POSITIVE DIFFERENTIAL YES; Platelet Count 276 K/mm3 (150-450); RBC Distribution Width CV 12.7 % (11.6-14.6); RBC Distribution Width SD 42.3 fl (35.1-43.9); Red Blood Count 4.36 M/mm3 (4.2-5.4); White Blood Count 17.2 K/mm3 (4.4-11.0)
[2020-04-15 13:23] LABS: Differential Indicated SCAN CRITERIA MET
[2020-04-15 13:44] LABS: Platelet Estimate ADEQUATE (ADEQ)
[2020-04-15] MEDS: Amox/Clavulanate 875 MG Tablet PO (13:57)
[2020-04-15 14:37] VITALS: PULSE 75; RESP 18
[2020-04-17 10:02] LABS: Pathologist Review Reviewed
== END 2020-04-15 14:39 | disposition home or self-care (01) ==
PROVIDERS: Emergency Provider Emergency Medicine
DX: J03.00 Acute streptococcal tonsillitis, unspecified (principal); E86.0 Dehydration; J36 Peritonsillar abscess; F17.200 Nicotine dependence, unspecified, uncomplicated
CPT/HCPCS: 85025; 87880; 96361; 96374; 99284; J7030

== ENCOUNTER 2021-08-31 15:18 | Emergency (ER) | payer MEDICAID, SELFPAY ==
[2021-08-31 15:20] VITALS: BP 139/80; PULSE 130; RESP 18; TEMP 36.6; O2SAT 100; BMI 23.1
--- NOTE | 2021-08-31 15:33 | EDS_ITS ---
HPI HPI - URI History of Present Illness Chief Complaint: Sore Throat Detail of Chief Complaint: Sore throat started 0300 and white spots Informant: patient Onset/Context/Timing Onset: Today (At 0 300) Context: Sudden Onset Timing: Continuous Quality: Pain Location: Throat Maximum Severity: Moderate Worsened by: Swallowing, Eating Solids and Drinking Liquids Relieved by: - (Nothing) Associated Symptoms Associated Symptoms: Negative for Nasal Congestion, Headache, Myalgias, Nausea, Vomiting, Diarrhea, Shortness of Breath, Chest Pain, Nonproductive cough, Hemoptysis and Productive Cough Narrative Narrative: Patient is 31-year-old woman who presents because of sore throat with white spots noted on her tonsils. This started at 0300. She has 2 children that were sick. They were not tested for strep. She denies rhinorrhea, congestion or postnasal drainage. She denies cough or shortness of breath. She denies a traumatic fever, heart murmur or SBE. She denies rash. She states she has slight change in voice. She is able to swallow. She denies drooling. She denies cardiac or respiratory symptoms. She denies GI symptoms. Prior similar symptoms: No Recent Illness/Hospitalization: No ROS ROS ED Constitutional Constitutional ED: Denies chills, fever(s), subjective, sweats or weight loss Eyes Eyes: Denies blurry vision, change in vision or diplopia ENT ENT ED: Reports sore throat and other Details: Additional information HPI ; Denies ear pain or rhinorrhea Cardiovascular Cardiovascular: Denies chest pain, palpitations or racing heartbeat Respiratory/Chest Respiratory/Chest: Denies cough or dyspnea Gastrointestinal Gastrointestinal: Denies abdominal pain, nausea or vomiting Musculoskeletal Musculoskeletal: Denies arthralgias or myalgias Integumentary Denies rash Neurologic Neurologic: Denies headache(s) Allergic/Immunologic Allergic/Immunologic ED: Denies mouth swelling or tongue swelling [facility] Medical History (Updated 08/31/21 @ 16:[address] Lucio Blanco MD) Abnormal Papanicolaou smear of cervix with positive human papilloma virus (HPV) test Anxiety Fracture Home Medications penicillin V potassium 500 mg PO 4X/DAY #40 tab 08/31/21 [Rx Last Taken Unknown] Allergy/AdvReac Type Severity Reaction Status Date / Time sulfamethoxazole Allergy Rash Verified 03/26/22 15:22 [From Bactrim] trimethoprim [From Bactrim] Allergy Rash Verified 08/31/21 15:22 Family History Mother Hypertension Grandmother Asthma Hypertension Hyperlipemia Breast cancer Grandfather Diabetes Aunt Seizures Uncle Hyperlipemia Surgical History Hx LEEP (loop electrosurgical excision procedure), cervix, (~2014) Hx of appendectomy (~1998) Social History adopted: No household members: family housing: house number of children: 1 current occupational status: employed current occupation: [employer] pets and animals: No history of recent travel: No Smoking Status: Current every day smoker tobacco type: cigarettes second hand exposure: Yes alcohol intake: never substance use type: does not use seatbelt use: sometimes do you feel safe at home: Yes additional social history: Babatunde- Boyfriend EXAM Physical Exam Const Vital Signs: 08/31/21 15:20 Temperature 97.9 F Temperature Source Temporal Pulse Rate 130 H Respiratory Rate 18 Blood Pressure 139/80 H Blood Pressure Mean 99 Pulse Ox 100 Oxygen Delivery Method Room Air Positive well nourished and well developed General Appearance ED: well developed and NAD; Negative for cyanotic, diaphoretic or pallor HEENT Reports TM's clear and moist mucous membranes normocephalic and atraumatic; Negative for scalp tenderness Face and Sinus: Negative for sinus tenderness, maxillary instability or facial tenderness External Ear: external ears normal, mastoids normal and no preauricular adenopathy External Auditory Canal: EAC's normal Tympanic Membrane ED: Yes TM's clear Throat: tonsils abnormal and posterior oropharynx abnormal Positive for exudates; Negative for posterior oropharynx normal Eyes PERRL and EOMs intact bilaterally General Eye ED: Negative for pale conjunctiva or scleral icterus Neck no lymphadenopathy, supple, no meningeal signs and no JVD Resp normal respiratory effort and clear to auscultation bilaterally Cardio S1 normal heart sound, S2 normal heart sound and no murmurs Rate: tachycardic Rhythm: regular rhythm Neuro oriented x3 and CN's II-XII intact bilaterally Sensorium / Orientation: alert Psych mental status grossly normal Skin General Skin Exam: Negative for jaundice or pallor Lesions: no lesions Rashes: no rashes MDM MDM MDM Narrative Medical decision making narrative: Patient Centor score is 2. Will obtain rapid strep. If positive treat otherwise await results of culture. Lab Data Attestation: I reviewed the patient's lab results. Lab results narrative: Rapid strep test was positive. Patient was given option of intramuscular penicillin versus oral penicillin. She prefers oral penicillin. Discharge Plan Triage Chief Complaint: Sore Throat ED Provider: Lucio Blanco Dx/Rx/DC Orders Clinical Impression: Acute non-recurrent streptococcal tonsillitis Instructions: ED Peritonsillar Inf Strep Throat Prescriptions: New penicillin V potassium 500 MG tablet 500 mg PO 4X/DAY Qty: 40 RF: 0 Primary Care Provider: Care Physician,No Primary Referrals: Care Physician,No Primary [Primary Care Provider] - Doctor,Your [STAFF PHYSICIAN] - 1 Week if not improving Activity Restrictions/Additional Instructions: 1. Salt water gargles 6-8 times a day 2. Take antibiotics till gone 3. If you are unable to swallow or have difficulty breathing return to the emergency department immediately Disposition Disposition: Home, Self Care
== END 2021-08-31 17:00 | disposition home or self-care (01) ==
PROVIDERS: Emergency Provider Emergency Medicine; Visit Provider Emergency Medicine
DX: J03.00 Acute streptococcal tonsillitis, unspecified (principal); F17.210 Nicotine dependence, cigarettes, uncomplicated
CPT/HCPCS: 87880; 99282

== ENCOUNTER → 2021-12-26 | Outpatient (CLI) | payer MEDICAID, SELFPAY ==
[2021-12-26 10:40] LABS: Absolute Lymphocyte Count 1.89 X10^3/uL (0.83-4.51); Absolute Neutrophil Count 7.1 X10^3/uL (2.0-7.7); Basophil# 0.03 X10^3/uL; Basophil% 0.3 % (0-1); Eosinophil# 0.07 X10^3/uL; Eosinophils% 0.7 % (0-5); Hematocrit 37.1 % (37-47); Hemoglobin 12.1 g/dL (12.0-15.0); Lymphocyte # 1.89 X10^3/ul (0.83-4.51); Mean Corp Hgb Conc 32.6 g/dL (32-36); Mean Corpuscular Hgb 29.8 pg (27.0-32.0); Mean Corpuscular Volume 91.4 fL (81-99); Mean Platelet Vol. 9.4 fl (6.2-12.0); Monocyte# 0.77 X10^3/uL; Monocyte% 7.7 % (0-10); NRBC Flagged by Analyzer 0 % (0-5); Neutrophil # 7.14 X10^3/uL (2.7-7.7); Neutrophil % 71.9 % (47-70); Platelet Count 283 K/mm3 (150-450); RBC Distribution Width CV 13.8 % (11.6-14.6); RBC Distribution Width SD 46.5 fl (35.1-43.9); Red Blood Count 4.06 M/mm3 (4.2-5.4); White Blood Count 9.9 K/mm3 (4.4-11.0)
[2021-12-26 11:30] LABS: NATERA MAILED SPECIMEN
[2021-12-26 11:32] LABS: Amphetamine Urine VISTA NEGATIVE (<1000 ng/mL); Barbiturate Urine VISTA NEGATIVE (< 200 ng/mL); Benzodiazepine Urine VISTA NEGATIVE (< 200 ng/mL); Cocaine Urine VISTA NEGATIVE (< 300 ng/mL); Ecstacy Urine VISTA NEGATIVE (< 500 ng/mL); Methadone Urine VISTA NEGATIVE (< 300 ng/mL); PCP Urine VISTA NEGATIVE (< 25 ng/mL); THC Urine VISTA NEGATIVE (< 50 ng/mL); Vista UDS pH Range 6
[2021-12-26 11:51] LABS: HIV - WCH Non-Reactive (Nonreactive); Hepatitis B Surface Antigen Non-Reactive (Nonreactive); Hepatitis C Antibody Non-Reactive (Nonreactive); Rubella IgG Reactive (Nonreactive); Syphilis Antibodies Non-reactive
[2021-12-30 01:06] LABS: Chlamydia By Nucleic Acid AMP Negative (Negative)
[2021-12-30 09:14] LABS: Gonococcus By Nucleic Acid AMP Negative (Negative)
[2021-12-30 16:12] LABS: HPV APTIMA, High Risk Negative (Negative)
== END | disposition home or self-care (01) ==
LOC: PAVLAB 10:19
PROVIDERS: Referring Provider Obstetrics & Gynecology; Visit Provider Obstetrics & Gynecology
DX: Z34.81 Encounter for supervision of other normal pregnancy, first trimester (principal)
CPT/HCPCS: 36415; 80307; 85025; 86703; 86762; 86780; 86803; 86850; 86900; 86901; 87077; 87086; 87088; 87186; 87340; 87491; 87591; 87624; 88175; G0145

== ENCOUNTER → 2021-12-31 | Outpatient (CLI) | payer MEDICAID, SELFPAY | END | disposition home or self-care (01) | LOC: LABSPEC 11:58 | PROVIDERS: Referring Provider Obstetrics & Gynecology; Visit Provider Obstetrics & Gynecology | DX: O46.90 Antepartum hemorrhage, unspecified, unspecified trimester (principal) | CPT/HCPCS: 87077; 87086; 87088; 87186 ==

== ENCOUNTER 2022-01-05 15:55 | Emergency (ER) | payer MEDICAID, SELFPAY ==
[2022-01-05 15:56] VITALS: BP 102/58; PULSE 97; RESP 15; TEMP 37; O2SAT 99; BMI 22.9
--- NOTE | 2022-01-05 16:31 | EDS_ITS ---
HPI History of Present Illness Chief Complaint: Nausea/Vomiting Narrative Narrative: Patient presents with nausea, vomiting, and vaginal bleeding that became worse today. Patient states she has been unable to keep anything down today. Patient states she is approximately 11 weeks . Patient states she did have some bleeding the other day that resolved. Patient states now she has some mild brown vaginal discharge. Patient admits to some tightness in her abdomen. Patient states nothing makes her symptoms better nothing makes them worse. Patient admits to some occasional back pain. Patient denies any hematemesis or coffee-ground emesis. Patient denies any diarrhea, melena, or hematochezia. [facility] Medical History Abnormal Papanicolaou smear of cervix with positive human papilloma virus (HPV) test Anxiety Fracture History of placenta previa History of polyhydramnios Home Medications [id number] 60 mg-1 mg oral combo pack 1 pkg PO DAILY 12/25/21 [History Last Taken Unknown] cephalexin 500 mg capsule 500 mg PO Q6 #20 CAPSULES 01/05/22 [Rx Last Taken Unknown] Allergy/AdvReac Type Severity Reaction Status Date / Time sulfamethoxazole Allergy Rash Verified 01/05/22 15:58 [From Bactrim] trimethoprim [From Bactrim] Allergy Rash Verified 01/05/22 15:58 Family History Mother Hypertension Grandmother Asthma Hypertension Hyperlipemia Breast cancer Grandfather Diabetes Aunt Seizures Uncle Hyperlipemia Surgical History Hx LEEP (loop electrosurgical excision procedure), cervix, (~2014) Hx of appendectomy (~1998) Social History adopted: No household members: family and children housing: house number of children: 2 current occupational status: employed current occupation: [employer] pets and animals: Yes pets and animals: dog(s) history of recent travel: No sexually active: Yes Smoking Status: Current every day smoker tobacco type: cigarettes Tobacco: How many years used: 13 second hand exposure: Yes quit status: considering quitting alcohol intake: never substance use type: does not use well-balanced diet: about half the time caffeine: Yes Type: carbonated beverages Number of servings: 2 during the past year weight has: decreased > 10 lbs what type of physical activity do you participate in: none concepcion/quaker: None seatbelt use: sometimes do you feel safe at home: Yes additional social history: Franck- BF Godfrey- 6yo [facility]- 1yo ROS ROS ED Constitutional Constitutional ED: Denies chills or fever(s) Eyes Eyes: Denies blurry vision or change in vision ENT ENT ED: Denies rhinorrhea or sore throat Cardiovascular Cardiovascular: Denies chest pain or palpitations Respiratory/Chest Respiratory/Chest: Denies cough or dyspnea Gastrointestinal Gastrointestinal: Reports abdominal pain, nausea and vomiting Genitourinary Genitourinary ED: Denies dysuria or hematuria Musculoskeletal Musculoskeletal: Reports back pain; Denies neck pain Integumentary Denies abscess or rash Neurologic Neurologic: Denies headache(s) or weakness Allergic/Immunologic Allergic/Immunologic ED: Denies mouth swelling or urticaria EXAM Physical Exam Const Vital Signs: 01/05/22 15:56 Temperature 98.6 F Temperature Source Temporal Pulse Rate 97 Respiratory Rate 15 Blood Pressure 102/58 L Blood Pressure Mean 72 Pulse Ox 99 Oxygen Delivery Method Room Air Positive well nourished and well developed General Appearance ED: well developed and NAD HEENT Reports moist mucous membranes Neck supple and no JVD Resp normal respiratory effort and clear to auscultation bilaterally Cardio regular rate, regular rhythm and no murmurs GI normal to inspection, nondistended, normoactive bowel sounds Palpation: soft and tender LLQ; Negative for guarding or rebound tenderness present Extremity normal to inspection General Extremety ED: Negative for edema or tenderness General Extremity: Negative for edema Neuro oriented x3, CN's II-XII intact bilaterally and no sensory deficits noted Sensorium / Orientation: alert Motor Exam: strength 5/5 throughout Psych mental status grossly normal Skin no rashes or lesions noted MDM MDM MDM Narrative Medical decision making narrative: Patient was given IV fluids and Zofran here. CBC shows a mild leukocytosis of 12.3. Comprehensive metabolic profile was within normal limits. Quantitative hCG was [address]. Pelvic ultrasound was obtained. There may be a subchorionic hemorrhage but was otherwise within normal limits. There is a single live intra uterine at 11 weeks 3 days. heart tones were 150. This was interpreted by the radiologist and reviewed by myself. Urinalysis shows ketones of 150. Leukocyte esterase was 100 with positive nitrites and 50-100 white blood cells. There is 4+ bacteria. Patient was given a dose of Rocephin here. Patient was given a prescription for Keflex. Urine culture was ordered. Patient was advised of her findings. Patient was instructed to follow-up with her SOAP GRINDER in 5 to 7 days. Patient was instructed return if worse in any way. Patient understood and was agreeable with the plan. All questions were answered. Lab Data Attestation: I reviewed the patient's lab results. Labs: Laboratory Results - last 24 hr 01/05/22 01/05/22 01/05/22 16:50 16:50 16:50 WBC 12.3 H RBC 3.98 L Hgb 12.2 Hct 36.2 L MCV 91.0 MCH 30.7 MCHC 33.7 RDW Std Deviation 46.2 H RDW Coeff of Chris 13.6 Plt Count 292 MPV 9.7 Immature Gran % (Auto) 0.300 Neut % (Auto) 92.6 H Lymph % (Auto) 3.9 L [place] % (Auto) 3.0 Eos % (Auto) 0.0 Baso % (Auto) 0.2 Absolute Neuts (auto) 11.3 H Absolute Lymphs (auto) 0.48 L Nucleated RBC % 0 Differential Comment SEE COMMENT Platelet Estimate ADEQUATE RBC Morphology N CHROM Anisocytosis RARE Macrocytosis RARE Sodium 136 Potassium 3.5 Chloride 107 Carbon Dioxide 24.0 Anion Gap 5 BUN 11 Creatinine 0.59 Estim Creat Clear Calc 122.04 Est GFR (MDRD) Af Amer 151 Est GFR (MDRD) Non-Af 124 BUN/Creatinine Ratio 18.6 Glucose 93 Calcium 8.6 Total Bilirubin 0.40 AST 17 ALT 17 Alkaline Phosphatase 69 Total Protein 7.2 Albumin 3.2 Globulin 4.0 Albumin/Globulin Ratio 0.8 L HCG, Quant 90238 H Urine Color Urine Clarity Urine pH Ur Specific Street Urine Protein Urine Glucose (UA) Urine Ketones Urine Occult Blood Urine Nitrite Urine Bilirubin Urine Urobilinogen Ur Leukocyte Esterase Urine RBC Urine WBC Ur Squamous Epith Cells Urine Bacteria Urine Mucus 01/05/22 17:05 WBC RBC Hgb Hct MCV MCH MCHC RDW Std Deviation RDW Coeff of Chris Plt Count MPV Immature Gran % (Auto) Neut % (Auto) Lymph % (Auto) [place] % (Auto) Eos % (Auto) Baso % (Auto) Absolute Neuts (auto) Absolute Lymphs (auto) Nucleated RBC % Differential Comment Platelet Estimate RBC Morphology Anisocytosis Macrocytosis Sodium Potassium Chloride Carbon Dioxide Anion Gap BUN Creatinine Estim Creat Clear Calc Est GFR (MDRD) Af Amer Est GFR (MDRD) Non-Af BUN/Creatinine Ratio Glucose Calcium Total Bilirubin AST ALT Alkaline Phosphatase Total Protein Albumin Globulin Albumin/Globulin Ratio HCG, Quant Urine Color Yellow Urine Clarity Sl. Cloudy Urine pH 6.[address] 1.015 Urine Protein 15 H Urine Glucose (UA) Normal Urine Ketones 150 A* Urine Occult Blood 50 H Urine Nitrite Positive H Urine Bilirubin Negative Urine Urobilinogen Normal Ur Leukocyte Esterase 100 H Urine RBC 5-10 SEEN Urine WBC 50-100 SEEN Ur Squamous Epith Cells 5-10 SEEN Urine Bacteria 4+ Urine Mucus 0 SEEN Radiography Diagnostic Testing: Clinical Impression(s) from Imaging Studies Obstetrics Ultrasound 01/05/22 16:35 IMPRESSION: Findings are suggestive of possible subchorionic hemorrhage seen on image over 50. Otherwise single live intrauterine 11 weeks 3 days by ultrasound. heart tones 150 bpm. Estimated delivery date 07/27/2022. Recommend close interval follow-up study. Recommend follow-up anatomic survey when appropriate. Electronically Signed: Layla Guerra MD at 18:41 EDT Reading Location ID and State: [address] [place] [address] Tel , Service support , Discharge Plan Triage Chief Complaint: Nausea/Vomiting ED Provider: Donovan Dunbar Dx/Rx/DC Orders Clinical Impression: Urinary tract infection, , Threatened miscarriage Instructions: ED CYSTITIS Female Adult Prescriptions: New cephalexin [cephalexin] 500 MG capsule 500 mg PO Q6 Qty: 20 0RF No Action [id number]-3 60-1 mg combo pack 1 pkg PO DAILY Primary Care Provider: Care Physician,No Primary Referrals: Evelia Askew MD [Med Staff - Active Staff] - 5-7 Days Care Physician,No Primary [Primary Care Provider] - Disposition Disposition: Home, Self Care
--- NOTE | 2022-01-05 16:35 | US_ITS ---
STUDY: FIRST TRIMESTER OBSTETRICAL ULTRASOUND REASON FOR EXAM: Female, 31 years old Pelvic pain, vaginal bleeding LMP: 10/17/2021 TECHNIQUE: Transabdominal TECHNICAL QUALITY: Adequate. PRIOR ULTRASOUND: None. FINDINGS: There is visualization of a single gestational sac in a normal intrauterine position. The mean sac diameter (MSD) measures 5.1 cm, indicating an estimated gestational age (EGA) of 10 weeks, 5 days. The gestational sac shape is within normal limits. There is a visualized yolk sac. The yolk sac measures 5.1 mm. An early posterior placenta is suggested. There early anatomic details. There is visualization of a live embryo. The crown-rump length (CRL) measures 4.65 cm, indicating an estimated gestational age (EGA) of 11 weeks, 2 days. There is demonstrated cardiac activity with a heart rate of 150 bpm. The estimated gestation age (EGA) by LMP is 11 weeks, 3 days. The estimated date of delivery (FELICIANO) by LMP is 07/24/2022. The estimated gestation age (EGA) by US is 11 weeks, 0 days. The estimated date of delivery (FELICIANO) by US is 07/27/2022. The uterus measures 12.5 x 9.5 x 8.7 cm. There is no demonstrated uterine fibroid. The cervix is closed. The right ovary not visualized likely due to overlying bowel gas. The left ovary measures 2.2 x 2.4 x 1.8 cm.. There is no left ovarian cyst. There is no visualized left adnexal mass or complex lesion. There is a small left ovarian follicle likely corporal luteal cyst. On image #49 there is a suggestion of a subtle rim of hypodensity adjacent to the gestational sac that measures 3 x 0.33 cm. There is no fluid in the cul de sac. US/Init OB < 14Wks US IMPRESSION: Findings are suggestive of possible subchorionic hemorrhage seen on image over 50. Otherwise single live intrauterine 11 weeks 3 days by ultrasound. heart tones 150 bpm. Estimated delivery date 07/27/2022. Recommend close interval follow-up study. Recommend follow-up anatomic survey when appropriate. Electronically Signed: Layla Guerra MD at 18:41 EDT ,
[2022-01-05] MEDS: 0.9% Normal Saline 1,000 ML 1000 ML IV (16:55)
[2022-01-05] MEDS: Ondansetron 4 MG/2 ML Vial IV (17:01)
[2022-01-05 17:16] LABS: Absolute Lymphocyte Count 0.48 X10^3/uL (0.83-4.51); Absolute Neutrophil Count 11.3 X10^3/uL (2.0-7.7); Basophil# 0.03 X10^3/uL; Basophil% 0.2 % (0-1); Hematocrit 36.2 % (37-47); Hemoglobin 12.2 g/dL (12.0-15.0); Lymphocyte # 0.48 X10^3/ul (0.83-4.51); Lymphocyte % 3.9 % (19-41); Mean Corp Hgb Conc 33.7 g/dL (32-36); Mean Corpuscular Hgb 30.7 pg (27.0-32.0); Mean Platelet Vol. 9.7 fl (6.2-12.0); Monocyte# 0.37 X10^3/uL; NRBC Flagged by Analyzer 0 % (0-5); Neutrophil # 11.34 X10^3/uL (2.7-7.7); Neutrophil % 92.6 % (47-70); POSITIVE DIFFERENTIAL YES; Platelet Count 292 K/mm3 (150-450); RBC Distribution Width CV 13.6 % (11.6-14.6); RBC Distribution Width SD 46.2 fl (35.1-43.9); Red Blood Count 3.98 M/mm3 (4.2-5.4); White Blood Count 12.3 K/mm3 (4.4-11.0)
[2022-01-05 17:22] LABS: ALB/GLOB Ratio 0.8 RATIO (0.9-2.4); AST(SGOT) 17 U/L (15-37); Alanine Aminotransfer ALT/SGPT 17 U/L (13-56); Albumin, Serum 3.2 g/dL (3.2-5.0); Alkaline Phosphatase 69 U/L (45-117); Anion Gap 5 (5-15); BUN 11 mg/dL (7-18); BUN/Creat Ratio 18.6 RATIO (10-20); Calcium,Total 8.6 mg/dL (8.5-10.1); Chloride 107 mmol/L (98-107); Creatinine, Serum 0.59 mg/dL (0.55-1.02); EST Glomerular Filtration Rate 124 mL/min (>60); Est Glom Filt Rate - Afr Amer 151 mL/min (>60); Estimated Creatinine Clearance 122.04 ml/min; Glucose 93 mg/dL (74-106); Potassium 3.5 mmol/L (3.5-5.1); Protein, Total 7.2 g/dL (6.4-8.2); Sodium Level 136 mmol/L (136-145)
[2022-01-05 17:25] LABS: Mucous, Urine 0 SEEN /hpf (<or=2+)
[2022-01-05 17:31] LABS: Color, Urine Yellow (Yellow); Glucose, Dipstick Normal (Normal); Leukocyte Esterase-Dipstick 100 /ul (Negative); Nitrite-Dipstick Positive (Negative); Occult Blood-Urine 50 /ul (Negative); Protein-Dipstick 15 mg/dl (Negative); Specific Gravity, Urine 1.015 (1.002-1.030); Urine Bilirubin Dipstick Negative (Negative); Urine Clarity Sl. Cloudy (Clear); Urine Urobilinogen Normal (Normal)
--- NOTE | 2022-01-05 17:39 | ED.RN ---
URINE KETONES 150.
[2022-01-05 17:40] LABS: Ketone-Dipstick 150 mg/dl (Negative)
[2022-01-05 17:47] LABS: Bacteria 4+ /hpf (None Seen); Red Blood Cells-Urine 5-10 SEEN /hpf (0-5); Squamous Epithelial Cells - UA 5-10 SEEN /hpf (5-10); White Blood Cells 50-100 SEEN /hpf (0-5)
[2022-01-05 17:48] LABS: Differential Indicated SCAN CRITERIA MET
[2022-01-05 18:15] LABS: Anisocytosis RARE; Macrocytosis RARE; Platelet Estimate ADEQUATE (ADEQ); Red Cell Morphology N CHROM NORMAL (NORM C&C)
[2022-01-05 18:44] LABS: hCG Titer Quant., Serum 58527 mIU/mL (1-3)
[2022-01-05] MEDS: Ceftriaxone 1 GM/50 ML BAG IV (19:11)
[2022-01-05 20:03] VITALS: BP 101/63; PULSE 84; RESP 18; TEMP 36.6; O2SAT 97
== END 2022-01-05 20:05 | disposition home or self-care (01) ==
PROVIDERS: Emergency Provider Emergency Medicine; Visit Provider Emergency Medicine
DX: O20.0 Threatened abortion (principal); O23.41 Unspecified infection of urinary tract in pregnancy, first trimester; Z3A.11 11 weeks gestation of pregnancy; O99.331 Smoking (tobacco) complicating pregnancy, first trimester; F17.210 Nicotine dependence, cigarettes, uncomplicated
CPT/HCPCS: 76801; 80053; 81001; 84702; 85025; 87077; 87086; 87088; 87186; 96361; 96365; 96375; 99283; J7030; J7050; A4216; J2405

== ENCOUNTER → 2022-01-23 | Outpatient (CLI) | payer MEDICAID, SELFPAY | END | disposition home or self-care (01) | PROVIDERS: Visit Provider Obstetrics & Gynecology | DX: J02.9 Acute pharyngitis, unspecified (principal) | CPT/HCPCS: 87635; 87070; U0003; U0005 ==

== ENCOUNTER → 2022-03-10 | Outpatient (CLI) | payer MEDICAID, SELFPAY ==
--- NOTE | 2022-03-10 12:53 | US_ITS ---
STUDY: SECOND AND THIRD TRIMESTER OBSTETRICAL ULTRASOUND REASON FOR EXAM: Female, 31 years old anatomy LMP: 10/17/2021. TECHNIQUE: Transabdominal and Transvaginal TECHNICAL QUALITY: Adequate. PRIOR ULTRASOUND: Comparison is made with prior study dated 01/05/2022. FINDINGS: There is a single intrauterine fetus. The fetus is in an transverse lie with the head on the maternal left side. There is demonstrated cardiac activity with a heart rate of 150 bpm. There is a normal amniotic fluid volume. The largest amniotic fluid pocket measures 3.9 cm. The amniotic fluid index (JENNIFER) is within normal limits cm. The placenta is posterior in location and is not low lying. There are Grade 0 placental changes. The cervix measures 2.2 cm in length. The adnexal regions are not visualized. BIOMETRY: BPD: 4.11 cm: 18 weeks, 3 days HC: 16.69 cm: 19 weeks, 3 days AC: 14.46 cm: 19 weeks, 5 days FL: 3.05 cm: 19 weeks, 3 days CI: 69% FL/BPD: 74% FL/HC: FL/AC: 21% HC/AC: 1.15 age by current US: 19 weeks, 2 days. FELICIANO by current US: 08/02/2022. Estimated weight: 295 grams, +/- 44 grams, 6 %. age by prior US: 20 weeks, 1 days. FELICIANO by prior US: 07/27/2022. Age by LMP: 20 weeks, 4 days. FELICIANO by LMP: 07/24/2022. ANATOMY: Gender: Female Cranium: Normal lateral ventricles. Normal choroid plexus. Normal cerebellum. Normal cisterna magna. Normal face, nose and lips. Chest: Normal 4-chamber heart. Abdomen/Pelvis: Normal diaphragm. Normal stomach. Normal abdominal wall. Normal cord insertion. Normal 3 vessel cord. Normal kidneys. Normal bladder. Spine: Normal cervical spine. Normal thoracic spine. Normal lumbar spine. Normal sacrum. Extremities: Normal bilateral upper extremities. Normal bilateral lower extremities. US/OB Anatomy Scan IMPRESSION: Single live intrauterine gestation with mean gestational age of 20 weeks and 1 day. The measurements obtained today places the fetus in the 6%. The cervical length measures 2.2 cm. Electronically Signed: Paulino Madison MD at 15:34 EDT ,
== END | disposition home or self-care (01) ==
PROVIDERS: Visit Provider Obstetrics & Gynecology
DX: Z34.92 Encounter for supervision of normal pregnancy, unspecified, second trimester (principal); Z3A.20 20 weeks gestation of pregnancy
CPT/HCPCS: 76805; 76817

== ENCOUNTER → 2022-03-26 | Outpatient (CLI) | payer MEDICAID, SELFPAY | END | disposition home or self-care (01) | LOC: LABSPEC 16:16 | PROVIDERS: Visit Provider Registered Nurse | DX: O23.40 Unspecified infection of urinary tract in pregnancy, unspecified trimester (principal) | CPT/HCPCS: 87077; 87086; 87088; 87186 ==

== ENCOUNTER 2022-05-06 17:31 | Outpatient (CLI) | payer MEDICAID, SELFPAY | END 2022-05-06 23:59 | disposition home or self-care (01) | PROVIDERS: Referring Provider Obstetrics & Gynecology; Visit Provider Obstetrics & Gynecology | DX: N39.0 Urinary tract infection, site not specified (principal) | CPT/HCPCS: 87077; 87086; 87088; 87186 ==

== ENCOUNTER 2022-05-07 13:32 | Outpatient (CLI) | payer MEDICAID, SELFPAY ==
[2022-05-07 14:44] LABS: Absolute Lymphocyte Count 2.37 X10^3/uL (0.83-4.51); Absolute Neutrophil Count 9.5 X10^3/uL (2.0-7.7); Basophil# 0.03 X10^3/uL; Basophil% 0.2 % (0-1); Eosinophil# 0.05 X10^3/uL; Eosinophils% 0.4 % (0-5); Hematocrit 34.3 % (37-47); Hemoglobin 11.4 g/dL (12.0-15.0); Lymphocyte # 2.37 X10^3/ul (0.83-4.51); Lymphocyte % 18.3 % (19-41); Mean Corp Hgb Conc 33.2 g/dL (32-36); Mean Corpuscular Hgb 31.5 pg (27.0-32.0); Mean Corpuscular Volume 94.8 fL (81-99); Mean Platelet Vol. 9.4 fl (6.2-12.0); Monocyte# 0.94 X10^3/uL; Monocyte% 7.3 % (0-10); NRBC Flagged by Analyzer 0 % (0-5); Neutrophil # 9.52 X10^3/uL (2.7-7.7); Neutrophil % 73.4 % (47-70); Platelet Count 235 K/mm3 (150-450); RBC Distribution Width CV 12.8 % (11.6-14.6); RBC Distribution Width SD 44.5 fl (35.1-43.9); Red Blood Count 3.62 M/mm3 (4.2-5.4)
[2022-05-07 14:53] LABS: Glucose Challenge Gest 1H 50g 115 mg/dL (70-140)
== END 2022-05-07 23:59 | disposition home or self-care (01) ==
LOC: PAVLAB 13:33
PROVIDERS: Obstetrics & Gynecology; Referring Provider Obstetrics & Gynecology; Visit Provider Obstetrics & Gynecology
DX: Z34.90 Encounter for supervision of normal pregnancy, unspecified, unspecified trimester (principal); Z13.1 Encounter for screening for diabetes mellitus
CPT/HCPCS: 36415; 82950; 85025

== ENCOUNTER 2022-05-08 13:50 | Outpatient (CLI) | payer MEDICAID, SELFPAY ==
--- NOTE | 2022-05-08 13:52 | US_ITS ---
STUDY: ULTRASOUND BREAST - RIGHT REASON FOR EXAM: Female, 31 years old. Right breast lump. Patient is . TECHNIQUE: Axial and longitudinal images of the RIGHT breast were performed with a high resolution ultrasound transducer. # OF IMAGES: 45 COMPARISON: None. FINDINGS: RIGHT Breast: The entire right breast was examined with ultrasound. No sonographic abnormality is seen. US/Breast Limited Unilateral IMPRESSION: No sonographic abnormality is seen. ASSESSMENT CATEGORY: BIRADS Category 1: Negative. A letter regarding these results will be sent to the patient by the facility within 30 days. Electronically Signed: Paulino Madison MD at 15:12 EST ,
== END 2022-05-08 23:59 | disposition home or self-care (01) ==
PROVIDERS: Visit Provider Obstetrics & Gynecology
DX: N63.10 Unspecified lump in the right breast, unspecified quadrant (principal)
CPT/HCPCS: 76642

== ENCOUNTER 2022-05-26 19:10 | Outpatient (CLI) | payer MEDICAID, SELFPAY ==
[2022-05-26 19:27] VITALS: PULSE 103; O2SAT 94
[2022-05-26 19:31] VITALS: BMI 27.6
[2022-05-26 19:32] VITALS: PULSE 107; O2SAT 97
[2022-05-26 19:33] VITALS: PULSE 111; O2SAT 93
[2022-05-26 19:34] VITALS: TEMP 37.1; O2SAT 98
[2022-05-26 19:35] VITALS: BP 129/84; PULSE 114
[2022-05-26 20:20] LABS: ROM Internal Control Test YES-OK TO RESULT pt. (Internal QC); ROM Patient Test Negative (Negative)
--- NOTE | 2022-05-26 21:00 | OB.TRI.HP_ITS ---
HPI - General General Date of Service: 05/26/22 HPI Narrative EVERT LIANG, is a 31 F who presents for r/o ROM at 31+4 Maternal Data Information FELICIANO Calculator Estimated Delivery Date Method Current WG Current Estimate 07/24/22 Ultrasound #1 31w 6d Other Estimates 08/01/22 LMP (Certain) 30w 5d PFSH PFSH Medical History Abnormal Papanicolaou smear of cervix with positive human papilloma virus (HPV) test Anxiety Fracture History of placenta previa History of polyhydramnios Home Medications [id number]-[id number]-3 60 mg-1 mg oral combo pack 1 pkg PO DAILY 12/25/21 [History Last Taken Unknown] prochlorperazine maleate 10 mg tablet (Compazine) 10 mg PO Q8H PRN nausea and vomiting #60 tabs 02/04/22 [Rx Last Taken Unknown] nitrofurantoin monohydrate/macrocrystals 100 mg capsule (Macrobid) 100 mg PO DAILY 30 days #30 caps 05/08/22 [Rx Last Taken Unknown] Allergy/AdvReac Type Severity Reaction Status Date / Time sulfamethoxazole Allergy Rash Verified 05/26/22 19:29 [From Bactrim] trimethoprim [From Bactrim] Allergy Rash Verified 05/26/22 19:29 Family History Mother Hypertension Grandmother Asthma Hypertension Hyperlipemia Breast cancer Grandfather Diabetes Aunt Seizures Uncle Hyperlipemia Surgical History Hx LEEP (loop electrosurgical excision procedure), cervix, (~2014) Hx of appendectomy (~1998) Social History adopted: No household members: family and children housing: house number of children: 2 current occupational status: employed current occupation: [employer] pets and animals: Yes pets and animals: dog(s) history of recent travel: No sexually active: Yes Smoking Status: Current every day smoker tobacco type: cigarettes Tobacco: How many years used: 13 second hand exposure: Yes quit status: considering quitting alcohol intake: never substance use type: does not use well-balanced diet: about half the time caffeine: Yes Type: carbonated beverages Number of servings: 2 during the past year weight has: decreased > 10 lbs what type of physical activity do you participate in: none concepcion/mormon: None seatbelt use: sometimes do you feel safe at home: Yes additional social history: Franck- BF Godfrey- 8yo [place]- 1yo History 3 Elective abortions Hx Para 2 Spontaneous abortions Hx # Term Pregnancies Ectopic pregnancies Hx # Pregnancies Multiple births # of living children 2 Past Pregnancies Del. Date Name GA/Weeks Outcome Route Bth Weight Gen Labor Lgth Anesthesia Del Locatn Provider FOB Unknown 2013- [place] 40 live - full term 7lbs 13oz Mal e epidural [facility] JVandevelde 07/22/18 [place] 40 live - full term Male epidural [facility] Dr. Evelia Askew Delivery Date: Last Updated by: Evelia Askew MD child has mild CP Delivery Date: 07/22/18 Last Updated by: Armida Rosales Polyhydramnios Visit Details Expected Delivery Route/Plan Labor Preferences- CB/BF classes: no labor support person: unsure labor intervention preferences: [] pain management options preferred: hoping to avoid epidural cut cord/dad catch: [] : yes PP control planned: wants sterilization discussed possible routes of delivery and associated risks: [] special requests: [] Plans Covid status: no Flu vaccine: no Tdap vaccine: no Rhogam: na LARC form signed: [] Problem list reviewed and updated with the most current plan of care details and appropriate orders placed. Relevant counseling for the gestational age provided. Continue routine care and follow up unless otherwise noted in visit notes/problem list details OB Flowsheet Initial Weight: Not Recorded Date -?-?-?-?-?-?-?-?-?-?-?-?- EGA Weight BP Urine Prot -?-?-?-?-?-?-?-?-?-?-?-?- Glucose FHR FuHt Pres Dilation -?-?-?-?-?-?-?-?-?-?-?-?- Effaced St Visit Note 12/26/21 -?-?-?-?-?-?-?-?-?-?-?-?- 10w 0d 134 lb 92/78 -?-?-?-?-?-?-?-?-?-?-?-?- 157 -?-?-?-?-?-?-?-?-?-?-?-?- SM- CRL 2.8cm NO T cons with LMP 12/31/21 -?-?-?-?-?-?-?-?-?-?-?-?- 10w 5d 138 lb 122/84 -?-?-?-?-?-?-?-?-?-?-?-?- 160 -?-?-?-?-?-?-?-?-?-?-?-?- SM- co vb diamond ng US normal no abnormalities seen 01/23/22 -?-?-?-?-?-?-?-?-?-?-?--?- 14w 0d 139 lb 8 oz 115/72 Nega tive -?-?-?-?-?-?-?-?-?-?-?-?- Negative 145 -?-?-?-?-?-?-?-?-?-?-?-?- JV- pt complains of sore throat and pain in ear. throat is erythematus and there is an enlarged lymph node. swabbed for strep and covid today 02/28/22 -?-?-?-?-?-?-?-?-?-?-?-?- 19w 1d 134 lb 0.2 oz 109/74 Ne gative -?-?-?-?-?-?-?-?-?-?-?-?- Negative 150 -?-?-?-?-?-?-?-?-?-?-?-?- JV- pt still fee ling sick but thinks that she actually had covid last week because her mom had it and she had all the symptoms. Covid test was negative however it was . Recommend at least taking a baby asa daily. support measures for sinusitis discussed. 03/26/22 -?-?-?-?-?-?-?-?-?-?-?-?- 22w 6d 149 lb 6 oz 119/6 Nega tive -?-?-?-?-?-?-?-?-?-?-?-?- Negative 140 20 -?-?-?-?-?-?-?-?-?-?-?-?- -[facility] ultrasoun d reviewed with pt. grwoth at 6% and CL 2.2cm. will refer to MFM today.reviewed ways to decrease smoking, continues to smoke a little less than a pack/day. extreme stressors. counseling services provided. 04/22/22 -?-?-?-?-?-?-?-?-?-?-?-?- 26w 5d 156 lb 111/67 Negative -?-?-?-?-?-?-?-?-?-?-?-?- Negative 140 26 -?-?-?-?--?-?-?-?-?-?-?-?- SM- needs twice weekly BPPs, once with MFM once with us. no vb lof goodf m no regualr ctx reviewed PTL precautions 05/06/22 -?-?-?-?-?-?-?-?-?-?-?-?- 28w 5d 159 lb 113/72 Negative -?-?-?-?-?-?-?-?-?-?-?-?- Negative 155 27 -?-?-?-?-?-?-?-?-?-?-?-?- MH-No Vb, LOF. G opeg Fm. Will do 28 wk labs tomorrow AM 05/22/22 -?-?-?-?-?-?-?-?-?-?-?-?- 31w 0d 165 lb 6 oz 120/79 Nega tive -?-?-?-?-?-?-?-?-?-?-?-?- Negative 160 29 Breech -?-?-?-?-?-?--?-?-?-?-?-?- JV- IUGR followe d closely by mfm and [facility] radiology with twice weekly bpps and has a growth scan on thursday again. currently breech/unstable lie. 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 mainly 130 Variability:: Moderate Accelerations:: 10 x 10 Decelerations:: None NST Reactive:: Yes FHR Category:: Category I Assessment & Plan (1) Short cervical length during : COMMENT: 2.2cm on 03/10/2022 0.9-1.3cm on exam with MFM 03/31, moderate yeast infection and mfm did not want to do a cerclage until cleared up. starting treatment for yeast and vaginal progesterone. then reassessment. s/p indocin + BMZ (2) IUGR (intrauterine growth restriction): COMMENT: MFM consult in place- mfm to do weekly UAD until 26 weeks then recommending we do twice weekly testing in our office and with them (NST's weekly here and BPP/UAD with them starting 26 weeks)12/- 1030g 17% AC 1% (3) Supervision of high risk , antepartum: COMMENT: PRR , FELICIANO 07/24/22, girl isabel Littlejohn 1yo, Godfrey 8yo, BF Franck (4) : QUALIFIERS: Weeks of gestation: 28 weeks Qualified Code(s): Z3A.28 - 28 weeks gestation of COMMENT: Low risk NIPT PLAN: Plan ROM plus negative. no ctx stable for d/c home to follow up in office. Charges/Coding Procedures Urinary/Genital 52xxx-59xxx: 46707-36 non-stress test Interp
== END 2022-05-26 20:50 | disposition home or self-care (01) ==
LOC: WPOUT 19:17 → WP 19:18
PROVIDERS: Visit Provider Registered Nurse
DX: O36.5930 Maternal care for other known or suspected poor fetal growth, third trimester, not applicable or unspecified (principal); O99.333 Smoking (tobacco) complicating pregnancy, third trimester; F17.210 Nicotine dependence, cigarettes, uncomplicated; O26.23 Pregnancy care for patient with recurrent pregnancy loss, third trimester; Z3A.31 31 weeks gestation of pregnancy
CPT/HCPCS: 59025; 59050; 84112; 99218; G0378

== ENCOUNTER → 2022-05-29 | Outpatient (CLI) | payer MEDICAID, SELFPAY | END | disposition home or self-care (01) | LOC: OPUS 18:21 | PROVIDERS: Visit Provider Obstetrics & Gynecology | DX: Z3A.37 37 weeks gestation of pregnancy (principal) ==

== ENCOUNTER → 2022-05-29 | Outpatient (CLI) | payer MEDICAID, SELFPAY ==
--- NOTE | 2022-05-29 18:21 | US_ITS ---
EXAM: US BIOPHYSICAL PROFILE WITHOUT NON-STRESS TESTING CLINICAL INDICATION: WELL BEING TECHNIQUE: Real-time ultrasound of the maternal pelvis for biophysical profile evaluation with image documentation. This report was created using [employer] technology report generation technology. COMPARISON: None. FINDINGS: BREATHING MOVEMENTS: Present. Score 2/2. GROSS BODY MOVEMENTS: Present. Score 2/2. TONE: Present. Score 2/2. QUALITATIVE AMNIOTIC FLUID VOLUME: JENNIFER is 15.6 cm. HEART RATE: heart rate is 150 bpm. PRESENTATION: There is an intrauterine gestation in the breech presentation. PLACENTA: Placenta is posterior. OTHER FINDINGS: Biophysical profile score is 8/8. US/Biophysical Prof W/O Non Stres IMPRESSION: Intrauterine gestation with heart rate of 150 bpm. Biophysical profile score is 8/8. JENNIFER is 15.6 cm. Electronically Signed: Piyush Gallagher MD at 19:17 EST ,
== END | disposition home or self-care (01) ==
LOC: OPUS 06-03 17:33
PROVIDERS: Visit Provider Obstetrics & Gynecology
DX: Z3A.32 32 weeks gestation of pregnancy (principal)
CPT/HCPCS: 76819

== ENCOUNTER → 2022-06-05 | Outpatient (CLI) | payer MEDICAID, SELFPAY ==
--- NOTE | 2022-06-05 14:16 | US_ITS ---
STUDY: Ultrasound OB Biophysical Profile REASON FOR EXAM: Female, 31 years old well being TECHNIQUE: Transabdominal PRIOR ULTRASOUND: 05/29/2022 FINDINGS: There is a single intrauterine fetus. The fetus is in a breech presentation. There is demonstrated cardiac activity with a heart rate of 135 bpm. There is a normal amniotic fluid volume. The largest amniotic fluid pocket measures 5.4 cm. The amniotic fluid index (JENNIFER) is 15 cm. The placenta is posterior and not low-lying. BIOPHYSICAL PROFILE (BPP): 01/13 -- Breathin/2. -- Movement: 2/2. -- Tone: 2/2. --JNENIFER: 2/2. US/Biophysical Prof W/O Non Stres IMPRESSION: Normal BPP. Electronically Signed: Clayton Bray MD at 16:41 EST ,
== END | disposition home or self-care (01) ==
LOC: OPUS 14:15
PROVIDERS: Visit Provider Obstetrics & Gynecology
DX: O36.5990 Maternal care for other known or suspected poor fetal growth, unspecified trimester, not applicable or unspecified (principal); Z3A.33 33 weeks gestation of pregnancy
CPT/HCPCS: 76819

== ENCOUNTER 2022-06-18 13:00 | Outpatient (CLI) | payer MEDICAID, SELFPAY ==
[2022-06-18 13:32] VITALS: BP 110/66; PULSE 89; BMI 29.3
[2022-06-18] MEDS: Betamethasone/Betamethasone 30 MG/5 ML Vial 12 MG IM (13:36)
--- NOTE | 2022-06-18 18:35 | PCM.PN.BLA ---
Progress Note Emily Tinajero is a 32 y/o who presents to L&D for repeat dose of celestone only. Celestone was administered and patient was sent home to follow up in the office in one week or sooner as needed.
== END 2022-06-18 13:55 | disposition home or self-care (01) ==
LOC: WPOUT 13:06 → WP 13:08
PROVIDERS: Referring Provider Registered Nurse; Visit Provider Registered Nurse
DX: O09.93 Supervision of high risk pregnancy, unspecified, third trimester (principal); Z3A.35 35 weeks gestation of pregnancy; O99.333 Smoking (tobacco) complicating pregnancy, third trimester; F17.200 Nicotine dependence, unspecified, uncomplicated; O92.29 Other disorders of breast associated with pregnancy and the puerperium; O36.5930 Maternal care for other known or suspected poor fetal growth, third trimester, not applicable or unspecified; O26.873 Cervical shortening, third trimester; O23.43 Unspecified infection of urinary tract in pregnancy, third trimester; O12.03 Gestational edema, third trimester; R51.9 Headache, unspecified; Z87.59 Personal history of other complications of pregnancy, childbirth and the puerperium; F41.9 Anxiety disorder, unspecified; Z86.19 Personal history of other infectious and parasitic diseases
CPT/HCPCS: 96372; 99221; G0378; J0702

== ENCOUNTER 2022-06-19 13:18 | Outpatient (CLI) | payer MEDICAID, SELFPAY ==
[2022-06-18 13:32] VITALS: TEMP 36.8
[2022-06-19] VITALS (11 sets, daily range): BP systolic 115–155; BP diastolic 66–93; PULSE 91–113; TEMP 36.7; BMI 29.0
[2022-06-19] MEDS: Betamethasone/Betamethasone 30 MG/5 ML Vial 12 MG IM (13:49)
--- NOTE | 2022-06-23 13:04 | OB.TRI.PN ---
Progress Notes Date of Service: 06/19/22 Progress Note: steroid shot given for prmaturity second dose
== END 2022-06-19 13:54 | disposition home or self-care (01) ==
LOC: WPOUT 13:22 → WP 13:22
PROVIDERS: Referring Provider Obstetrics & Gynecology; Visit Provider Obstetrics & Gynecology
DX: O36.5990 Maternal care for other known or suspected poor fetal growth, unspecified trimester, not applicable or unspecified (principal); Z3A.00 Weeks of gestation of pregnancy not specified
CPT/HCPCS: 96372; G0378; 99221; J0702

== ENCOUNTER → 2022-06-19 | Outpatient (CLI) | payer MEDICAID, SELFPAY ==
--- NOTE | 2022-06-19 13:58 | US_ITS ---
STUDY: OBSTETRICAL ULTRASOUND - BIOPHYSICAL PROFILE REASON FOR EXAM: Female, 31 years old WELL BEING LMP: 10/17/2021. PRIOR ULTRASOUND: Comparison is made with prior sonogram dated 06/05/2022. TECHNIQUE: Transabdominal TECHNICAL QUALITY: Adequate. FINDINGS: There is a single intrauterine fetus. The fetus is in a cephalic presentation. There is demonstrated cardiac activity with a heart rate of 138 bpm. There is a normal amniotic fluid volume. The largest amniotic fluid pocket measures 5.67 cm. The amniotic fluid index (JENNIFER) is 18.7 cm. The placenta is fundal in location. There are Grade 0 placental changes. Age by LMP: 35 weeks, 0 days. FELICIANO by LMP: 07/24/2022. BIOPHYSICAL PROFILE: Breathing Movements (FBM): 2 Gross Body Movements (GBM): 2 Tone (FT): 2 Amniotic Fluid Volume (AFV): 2 TOTAL SCORE: US/Biophysical Prof W/O Non Stres IMPRESSION: Normal biophysical profile of 01/13. Electronically Signed: Paulino Madison MD at 15:44 EST ,
== END | disposition home or self-care (01) ==
PROVIDERS: Visit Provider Obstetrics & Gynecology
DX: O36.5990 Maternal care for other known or suspected poor fetal growth, unspecified trimester, not applicable or unspecified (principal); Z3A.35 35 weeks gestation of pregnancy
CPT/HCPCS: 76819; 96372; 99221; G0378; J0702

== ENCOUNTER → 2022-06-25 | Outpatient (CLI) | payer MEDICAID, SELFPAY ==
[2022-06-25 16:14] LABS: Protein:Creat Ratio 764 mg/g CRE (0-200)
== END | disposition home or self-care (01) ==
LOC: LABSPEC 15:10
PROVIDERS: Visit Provider Obstetrics & Gynecology
DX: O12.10 Gestational proteinuria, unspecified trimester (principal)
CPT/HCPCS: 82570; 84156

== ENCOUNTER → 2022-06-26 | Outpatient (CLI) | payer MEDICAID, SELFPAY ==
--- NOTE | 2022-06-26 14:22 | US_ITS ---
STUDY: OBSTETRICAL ULTRASOUND - BIOPHYSICAL PROFILE REASON FOR EXAM: Female, 32 years old 36 weeks- IUGR LMP: 10/17/2021. PRIOR ULTRASOUND: Comparison is made with prior study dated 12/17/2022. TECHNIQUE: Transabdominal TECHNICAL QUALITY: Adequate. FINDINGS: There is a single intrauterine fetus. The fetus is in a cephalic presentation. There is demonstrated cardiac activity with a heart rate of 150 bpm. There is a normal amniotic fluid volume. The largest amniotic fluid pocket measures 5. cm. The amniotic fluid index (JENNIFER) is 14.0 cm. The placenta is posterior in location and is not low lying. There are Grade 1 placental changes. Age by LMP: 36 weeks, 0 days. FELICIANO by LMP: 07/24/2022. BIOPHYSICAL PROFILE: Breathing Movements (FBM): 2 Gross Body Movements (GBM): 2 Tone (FT): 2 Amniotic Fluid Volume (AFV): 2 TOTAL SCORE: 8 / 8 US/Biophysical Prof W/O Non Stres IMPRESSION: Normal biophysical profile of 01/13. Electronically Signed: Paulino Madison MD at 15:21 EST ,
== END | disposition home or self-care (01) ==
LOC: OPUS 14:20
PROVIDERS: Visit Provider Obstetrics & Gynecology
DX: O36.5990 Maternal care for other known or suspected poor fetal growth, unspecified trimester, not applicable or unspecified (principal)
CPT/HCPCS: 76819

== ENCOUNTER 2022-06-27 11:50 | Outpatient (CLI) | payer MEDICAID, SELFPAY ==
[2022-06-27 12:30] VITALS: TEMP 36.7
[2022-06-27 12:31] VITALS: BP 121/78; PULSE 108
[2022-06-27] MEDS: Cephalexin Suspension 250 MG/5 ML PO.SYRINGE 100 MG PO (12:50)
[2022-06-27 12:56] LABS: Mucous, Urine 0 SEEN /hpf (<or=2+); Red Blood Cells-Urine 0 SEEN /hpf (0-5)
[2022-06-27 13:00] LABS: Color, Urine Yellow (Yellow); Glucose, Dipstick Normal (Normal); Ketone-Dipstick Negative (Negative); Leukocyte Esterase-Dipstick 25 /ul (Negative); Nitrite-Dipstick Negative (Negative); Occult Blood-Urine Negative /ul (Negative); Protein-Dipstick Negative (Negative); Urine Bilirubin Dipstick Negative (Negative); Urine Clarity Sl. Cloudy (Clear); Urine Urobilinogen Normal (Normal)
[2022-06-27 13:02] VITALS: BP 118/74; PULSE 109
[2022-06-27 13:02] LABS: Hematocrit 31.2 % (37-47); Hemoglobin 10.4 g/dL (12.0-15.0); Mean Corp Hgb Conc 33.3 g/dL (32-36); Mean Corpuscular Volume 93.1 fL (81-99); Mean Platelet Vol. 9.3 fl (6.2-12.0); Platelet Count 267 K/mm3 (150-450); RBC Distribution Width CV 13.2 % (11.6-14.6); RBC Distribution Width SD 45.1 fl (35.1-43.9); Red Blood Count 3.35 M/mm3 (4.2-5.4); White Blood Count 11.8 K/mm3 (4.4-11.0)
[2022-06-27 13:07] LABS: Protein, Urine (Random) 15.8 mg/dL (<11.9); Protein:Creat Ratio 192 mg/g CRE (0-200)
[2022-06-27 13:08] LABS: Bacteria 1+ /hpf (None Seen); Squamous Epithelial Cells - UA 0-5 SEEN /hpf (5-10); White Blood Cells 0-5 SEEN /hpf (0-5)
[2022-06-27 13:16] LABS: AST(SGOT) 14 U/L (15-37); Alanine Aminotransfer ALT/SGPT 20 U/L (13-56); Creatinine, Serum 0.46 mg/dL (0.55-1.02); EST Glomerular Filtration Rate 164 mL/min (>60); Est Glom Filt Rate - Afr Amer 199 mL/min (>60)
[2022-06-27 13:17] VITALS: BP 115/73; PULSE 107
[2022-06-27 13:32] VITALS: BP 120/76; PULSE 107
--- NOTE | 2022-06-27 13:35 | OB.TRI.HP_ITS ---
HPI - General General Date of Admission: 06/27/22 HPI Narrative EVERT LIANG, is a 32 y/o @ 36 weeks 1 day who was sent levi L&D to rule out Pre-e due to finding of 760g of protein on an outpatient lab that was collected yesterday. She was also found to have some leukocytes in the urine and an history of recurrent uti in . She has a headache secondary to a head cold and normal blood pressures. Maternal Data Information FELICIANO Calculator Estimated Delivery Date Method Current WG Current Estimate 07/24/22 Ultrasound #1 36w 1d Other Estimates 08/01/22 LMP (Certain) 35w 0d PFSH PFSH Medical History Abnormal Papanicolaou smear of cervix with positive human papilloma virus (HPV) test Anxiety Fracture History of placenta previa History of polyhydramnios Home Medications URQ-gqfh-AV-znk-cnu-qpeli-3 60 mg-1 mg oral combo pack 1 pkg PO DAILY 12/25/21 [History Last Taken 06/18/22 07:00] prochlorperazine maleate 10 mg tablet (Compazine) 10 mg PO Q8H PRN nausea and vomiting #60 tabs 02/04/22 [Rx Last Taken Unknown] nitrofurantoin monohydrate/macrocrystals 100 mg capsule (Macrobid) 100 mg PO DAILY 30 days #30 caps 05/08/22 [Rx Last Taken 06/17/22 21:00] Allergy/AdvReac Type Severity Reaction Status Date / Time sulfamethoxazole Allergy Rash Verified 06/27/22 11:11 [From Bactrim] trimethoprim [From Bactrim] Allergy Rash Verified 06/27/22 11:11 Family History Mother Hypertension Grandmother Asthma Hypertension Hyperlipemia Breast cancer Grandfather Diabetes Aunt Seizures Uncle Hyperlipemia Surgical History Hx LEEP (loop electrosurgical excision procedure), cervix, (~2014) Hx of appendectomy (~1998) Social History adopted: No household members: family and children housing: house number of children: 2 current occupational status: employed current occupation: [employer] pets and animals: Yes pets and animals: dog(s) history of recent travel: No sexually active: Yes Smoking Status: Current every day smoker tobacco type: cigarettes Tobacco: How many years used: 13 second hand exposure: Yes quit status: considering quitting alcohol intake: never substance use type: does not use well-balanced diet: about half the time caffeine: Yes Type: carbonated beverages Number of servings: 2 during the past year weight has: decreased > 10 lbs what type of physical activity do you participate in: none concepcion/scientologist: None seatbelt use: sometimes do you feel safe at home: Yes additional social history: [facility]- 6yo [facility]- 1yo History 3 Elective abortions Hx Para 2 Spontaneous abortions Hx # Term Pregnancies Ectopic pregnancies Hx # Pregnancies Multiple births # of living children 2 Past Pregnancies Del. Date Name GA/Weeks Outcome Route Bth Weight Gen Labor Lgth Anesthesia Del Locatn Provider FOB Unknown 2013- [facility] 40 live - full term 7lbs 13oz Mal e epidural [facility] JVandevelde 07/22/18 [place] 40 live - full term Male epidural [facility] Dr. Evelia Askew Delivery Date: Last Updated by: Evelia Askew MD child has mild CP Delivery Date: 07/22/18 Last Updated by: Armida Rosales Polyhydramnios Visit Details Expected Delivery Route/Plan Labor Preferences- CB/BF classes: no labor support person: unsure labor intervention preferences: [] pain management options preferred: hoping to avoid epidural cut cord/dad catch: [] : yes PP control planned: wants sterilization discussed possible routes of delivery and associated risks: [] special requests: [] Plans Covid status: no Flu vaccine: no Tdap vaccine: no Rhogam: na LARC form signed: [] Problem list reviewed and updated with the most current plan of care details and appropriate orders placed. Relevant counseling for the gestational age provided. Continue routine care and follow up unless otherwise noted in visit notes/problem list details OB Flowsheet Initial Weight: Not Recorded Date -?-?-?-?-?-?-?-?-?-?-?-?- EGA Weight BP Urine Prot -?-?-?-?-?-?-?-?-?-?-?-?- Glucose FHR FuHt Pres Dilation -?-?-?-?-?-?-?-?-?-?-?-?- Effaced St Visit Note 12/26/21 -?-?-?-?-?-?-?-?-?-?-?-?- 10w 0d 134 lb 92/78 -?-?-?-?-?-?-?-?-?-?-?-?- 157 -?-?-?-?-?-?-?-?-?-?-?-?- SM- CRL 2.8cm NO T cons with LMP 12/31/21 -?-?-?-?-?-?-?-?-?-?-?-?- 10w 5d 138 lb 122/84 -?-?-?-?-?-?-?-?-?-?-?-?- 160 -?-?-?-?-?-?-?-?-?-?-?-?- SM- co vb joelleni ng US normal no abnormalities seen 01/23/22 -?-?-?-?-?-?-?-?-?-?-?-?- 14w 0d 139 lb 8 oz 115/72 Nega tive -?-?-?-?-?-?-?-?-?-?-?-?- Negative 145 -?-?-?-?-?-?-?-?-?-?-?-?- JV- pt complains of sore throat and pain in ear. throat is erythematus and there is an enlarged lymph node. swabbed for strep and covid today 02/28/22 -?-?-?-?-?-?-?-?-?-?-?-?- 19w 1d 134 lb 0.2 oz 109/74 Ne gative -?-?-?-?-?-?-?-?-?-?-?-?- Negative 150 -?-?-?-?-?-?-?-?-?-?-?-?- JV- pt still fee ling sick but thinks that she actually had covid last week because her mom had it and she had all the symptoms. Covid test was negative however it was . Recommend at least taking a baby asa daily. support measures for sinusitis discussed. 03/26/22 -?-?-?-?-?-?-?-?-?-?-?-?- 22w 6d 149 lb 6 oz 119/6 Nega tive -?-?-?-?-?-?-?-?-?-?-?-?- Negative 140 20 -?-?-?-?-?-?-?-?-?-?-?-?- [facility] ultrasoun d reviewed with pt. grwoth at 6% and CL 2.2cm. will refer to MFM today.reviewed ways to decrease smoking, continues to smoke a little less than a pack/day. extreme stressors. counseling services provided. 04/22/22 -?-?-?-?-?-?-?-?-?-?-?-?- 26w 5d 156 lb 111/67 Negative -?-?-?-?-?-?-?-?-?-?-?-?- Negative 140 26 -?-?-?-?-?-?-?-?-?-?-?-?- SM- needs twice weekly BPPs, once with MFM once with us. no vb ye gordon no regualr ctx reviewed PTL precautions 05/06/22 -?-?-?-?-?-?-?-?-?-?-?-?- 28w 5d 159 lb 113/72 Negative -?-?-?-?-?-?-?-?-?-?-?-?- Negative 155 27 -?-?-?-?-?-?-?-?-?-?-?-?- MH-No Vb, LODarshana. Yossi cruz Fm. Will do 28 wk labs tomorrow AM 05/22/22 -?-?-?-?-?-?-?-?-?-?-?-?- 31w 0d 165 lb 6 oz 120/79 Nega tive -?-?-?-?-?-?-?-?-?-?-?-?- Negative 160 29 Breech -?-?-?-?-?-?-?-?-?-?-?-?- JV- IUGR followe d closely by mfm and [facility] radiology with twice weekly bpps and has a growth scan on thursday again. currently breech/unstable lie. discussed cs briefly 06/05/22 -?-?-?-?-?-?-?-?-?-?-?-?- 33w 0d 166 lb 2 oz 118/80 Nega tive -?-?-?-?-?-?-?-?-?-?-?-?- Negative 151 31 -?-?-?-?-?-?-?-?-?-?-?-?- MH-No VB, LOF. G ood FM. Twice weekly BPPs all scheduled. US 2 days ago was cephalic 06/17/22 -?-?-?-?-?-?-?-?-?-?-?-?- 34w 5d 170 lb 4 oz 105/71 Nega tive -?-?-?-?-?-?-?-?-?-?-?-?- Negative 150 34 Breech -?-?-?-?-?-?-?-?-?-?-?-?- JV- breech again . ac <1st%. sending to L&D for rescue steroid dose and scheduling cesaren for 37 weeks. continue twice weekly bpp and weekly UAD 06/25/22 -?-?-?-?-?-?-?--?-?-?-?-?- 35w 6d 170 lb 2 oz 118/79 1+ -?-?-?-?-?-?-?-?-?-?-?-?- Negative 145 33 Cephalic -?-?-?-?-?-?-?-?-?-?-?-?- JV- no lof, vagi nal bleeding or dec fm. has BPP tomorrow. next week will do GBS. recommend pushing fluids tonight. pt was sick since thursday. ROS Constitutional Constitutional: Reports systems reviewed and no addt'l complaints, except as documented Gastrointestinal Gastrointestinal: Denies bloating, constipation, cramping, diarrhea, nausea or vomiting Genitourinary Genitourinary: Reports other Details: Denies vaginal odor, vaginal bleeding, or vaginal discharge ; Denies difficulty urinating or flank pain Physical Exam HEENT normocephalic Resp normal respiratory effort and normal air movement no CVA tenderness Extremity normal to inspection General Extremity: edema bilateral (trace ) NST FHR Rate Baby A Baseline: 140 Variability:: Moderate Accelerations:: 15 x 15 Decelerations:: None NST Reactive:: Yes FHR Category:: Category I Assessment & Plan (1) UTI (urinary tract infection): COMMENT: treated with macrobid 03/26 based on symptoms. following cx -will need repeat culture at next visit:persists and daily keflex PLAN: will treat with keflex for a week and repeat urine urine and labs on l&D are all normal. plan for IOL for IUGR on 07/07/22 pending available openings. (2) Short cervical length during : COMMENT: 2.2cm on 03/10/2022 0.9-1.3cm on exam with MFM 03/31, moderate yeast infection and mfm did not want to do a cerclage until cleared up. starting treatment for yeast and vaginal progesterone. then reassessment. s/p indocin + BMZ (3) IUGR (intrauterine growth restriction): COMMENT: MFM consult in place- mfm to do weekly UAD until 26 weeks then recommending we do twice weekly testing in our office and with them (NST's weekly here and BPP/UAD with them starting 26 weeks)12/7- 1030g 17% AC 1% (4) Lump of right breast: COMMENT: breast ultrasound ordered (5) Tobacco abuse: COMMENT: current smoker, working on quitting during . encouraged cessation (6) Supervision of high risk , antepartum: COMMENT: PRR , FELICIANO 07/24/22, girl isabel Littlejohn 3yo, Godfrey 8yo, KRIS Juárez (7) : QUALIFIERS: Weeks of gestation: 35 weeks Qualified Code(s): Z3A.35 - 35 weeks gestation of COMMENT: Low risk NIPT (8) History of loop electrical excision procedure (LEEP): COMMENT: 2014 Paps negative since Charges/Coding Multi Select Codes Visit Charges Office Visit/Consults: 54848 OV L3 Est Urinary/Genital Urinary/Genital CPT Codes: 29996-65 non-stress test Interp
== END 2022-06-27 13:45 | disposition home or self-care (01) ==
LOC: WPOUT 12:04 → WP 12:04
PROVIDERS: Referring Provider Registered Nurse; Visit Provider Registered Nurse
DX: O09.893 Supervision of other high risk pregnancies, third trimester (principal); N39.0 Urinary tract infection, site not specified; F17.210 Nicotine dependence, cigarettes, uncomplicated; O99.891 Other specified diseases and conditions complicating pregnancy; R51.9 Headache, unspecified; O99.333 Smoking (tobacco) complicating pregnancy, third trimester; O12.03 Gestational edema, third trimester; O26.872 Cervical shortening, second trimester; O36.5930 Maternal care for other known or suspected poor fetal growth, third trimester, not applicable or unspecified; O92.29 Other disorders of breast associated with pregnancy and the puerperium
CPT/HCPCS: 36415; 59025; 59050; 81001; 82565; 82570; 84156; 84450; 84460; 84550; 85027; 87086; 87088; 99221; G0378

== ENCOUNTER → 2022-07-03 | Outpatient (CLI) | payer MEDICAID, SELFPAY | END | disposition home or self-care (01) | PROVIDERS: Referring Provider Obstetrics & Gynecology; Visit Provider Obstetrics & Gynecology | DX: O09.90 Supervision of high risk pregnancy, unspecified, unspecified trimester (principal) | CPT/HCPCS: 87081 ==

== ENCOUNTER 2022-07-08 06:56 | Inpatient (IN) | payer MEDICAID, SELFPAY ==
[2022-06-27 12:00] VITALS: BMI 29.5
[2022-07-08] VITALS (60 sets, daily range): BP systolic 81–137; BP diastolic 53–82; PULSE 84–137; RESP 16; TEMP 36.3–37.7; O2SAT 91–100
--- NOTE | 2022-07-08 07:24 | HP.PCM.OB_ITS ---
HPI - General General Date of Admission: 07/08/22 HPI Narrative EVERT LIANG, is a 32 y/o @ 37 weeks 5 days who presents to L&D for IOL due to severe IUGR. Maternal Data Information FELICIANO Calculator Estimated Delivery Date Method Current WG Current Estimate 07/24/22 Ultrasound #1 37w 5d Other Estimates 08/01/22 LMP (Certain) 36w 4d PFSH PFS Medical History Abnormal Papanicolaou smear of cervix with positive human papilloma virus (HPV) test Anxiety Fracture History of placenta previa History of polyhydramnios Home Medications QYQ-[id number]-XV-lvk-rsn-stlmk-3 60 mg-1 mg oral combo pack 1 pkg PO DAILY 12/25/21 [History Last Taken 06/26/22] nitrofurantoin monohydrate/macrocrystals 100 mg capsule (Macrobid) 100 mg PO DAILY UTI 06/27/22 [History Last Taken 06/27/22 12:30] Allergy/AdvReac Type Severity Reaction Status Date / Time sulfamethoxazole Allergy Rash Verified 07/07/22 10:33 [From Bactrim] trimethoprim [From Bactrim] Allergy Rash Verified 07/07/22 10:33 Family History Mother Hypertension Grandmother Asthma Hypertension Hyperlipemia Breast cancer Grandfather Diabetes Aunt Seizures Uncle Hyperlipemia Surgical History Hx LEEP (loop electrosurgical excision procedure), cervix, (~2014) Hx of appendectomy (~1998) Social History adopted: No household members: family and children housing: house number of children: 2 current occupational status: employed current occupation: [employer] pets and animals: Yes pets and animals: dog(s) history of recent travel: No sexually active: Yes Smoking Status: Current every day smoker tobacco type: cigarettes Tobacco: How many years used: 13 second hand exposure: Yes quit status: considering quitting alcohol intake: never substance use type: does not use well-balanced diet: about half the time caffeine: Yes Type: carbonated beverages Number of servings: 2 during the past year weight has: decreased > 10 lbs what type of physical activity do you participate in: none concepcion/protestant: None seatbelt use: sometimes do you feel safe at home: Yes additional social history: Franck- BF Godfrey- 6yo [facility]- 1yo History 3 Elective abortions Hx Para 2 Spontaneous abortions Hx # Term Pregnancies Ectopic pregnancies Hx # Pregnancies Multiple births # of living children 2 Past Pregnancies Del. Date Name GA/Weeks Outcome Route Bth Weight Infant Gen Labor Lgth Anesthesia Del Locatn Provider FOB Unknown 2013- Godfrey 40 live - full term 7lbs 13oz Mal e epidural [facility] 07/22/18 Sarbjit 40 live - full term Male epidural [facility] Dr. Evelia Askew Delivery Date: Last Updated by: Evelia Askew MD child has mild CP Delivery Date: 07/22/18 Last Updated by: Armida Rosales Polyhydramnios Visit Details Expected Delivery Route/Plan Labor Preferences- CB/BF classes: no labor support person: unsure labor intervention preferences: [] pain management options preferred: hoping to avoid epidural cut cord/dad catch: [] : yes PP control planned: wants sterilization discussed possible routes of delivery and associated risks: [] special requests: [] Plans Covid status: no Flu vaccine: no Tdap vaccine: no Rhogam: na LARC form signed: [] Problem list reviewed and updated with the most current plan of care details and appropriate orders placed. Relevant counseling for the gestational age provided. Continue routine care and follow up unless otherwise noted in visit notes/problem list details OB Flowsheet Initial Weight: Not Recorded Date -?-?-?-?-?-?-?-?-?-?-?-?- EGA Weight BP Urine Prot -?-?-?-?-?-?-?-?-?-?-?-?- Glucose FHR FuHt Pres Dilation -?-?-?-?-?-?-?-?-?-?-?-?- Effaced St Visit Note 12/26/21 -?-?-?-?-?-?-?-?-?-?-?-?- 10w 0d 134 lb 92/78 -?-?-?-?-?-?-?-?-?-?-?-?- 157 -?-?-?-?-?-?-?-?-?-?-?-?- SM- CRL 2.8cm NO T cons with LMP 12/31/21 -?-?-?-?-?-?-?-?-?-?-?-?- 10w 5d 138 lb 122/84 -?-?-?-?-?-?-?-?-?-?-?-?- 160 -?-?-?-?-?-?-?-?-?-?-?-?- SM- co vb diamond ng US normal no abnormalities seen 01/23/22 -?-?-?-?-?-?-?-?-?-?-?-?- 14w 0d 139 lb 8 oz 115/72 Nega tive -?-?-?-?-?--?-?-?-?-?-?-?- Negative 145 -?-?-?-?-?-?-?-?-?-?-?-?- JV- pt complains of sore throat and pain in ear. throat is erythematus and there is an enlarged lymph node. swabbed for strep and covid today 02/28/22 -?-?-?-?-?-?-?-?-?-?-?-?- 19w 1d 134 lb 0.2 oz 109/74 Ne gative -?-?-?-?-?-?-?-?-?-?-?-?- Negative 150 -?-?-?-?-?-?-?-?-?-?-?-?- JV- pt still fee ling sick but thinks that she actually had covid last week because her mom had it and she had all the symptoms. Covid test was negative however it was . Recommend at least taking a baby asa daily. support measures for sinusitis discussed. 03/26/22 -?-?-?-?-?-?-?-?-?-?-?-?- 22w 6d 149 lb 6 oz 119/6 Nega tive -?-?-?-?-?-?-?-?-?-?-?-?- Negative 140 20 -?-?-?-?-?-?-?-?-?-?-?-?- [facility] ultrasoun d reviewed with pt. grwoth at 6% and CL 2.2cm. will refer to MFM today.reviewed ways to decrease smoking, continues to smoke a little less than a pack/day. extreme stressors. counseling services provided. 04/22/22 -?-?-?-?-?-?-?-?-?-?-?-?- 26w 5d 156 lb 111/67 Negative -?-?-?-?-?-?-?-?-?-?-?-?- Negative 140 26 -?-?-?-?-?-?-?-?-?-?-?-?- SM- needs twice weekly BPPs, once with MFM once with us. no vb lof goodf m no regualr ctx reviewed PTL precautions 05/06/22 -?-?-?-?-?-?-?-?-?-?-?-?- 28w 5d 159 lb 113/72 Negative -?-?-?-?-?-?-?-?-?-?-?-?- Negative 155 27 -?-?-?-?-?-?-?-?-?-?-?-?- -No Vb, LOF. G ood Fm. Will do 28 wk labs tomorrow AM 05/22/22 -?-?-?-?-?-?-?-?-?-?-?-?- 31w 0d 165 lb 6 oz 120/79 Nega tive -?-?-?-?-?-?-?-?-?-?-?-?- Negative 160 29 Breech -?-?-?-?-?-?-?-?-?-?-?-?- JV- IUGR followe d closely by mfm and [facility] radiology with twice weekly bpps and has a growth scan on thursday again. currently breech/unstable lie. discussed cs briefly 06/05/22 -?-?-?-?-?-?-?-?-?-?-?-?- 33w 0d 166 lb 2 oz 118/80 Nega tive -?-?-?-?-?-?-?-?-?-?-?-?- Negative 151 31 -?-?-?-?-?-?-?-?-?-?-?-?- MH-No VB, LOF. G ood FM. Twice weekly BPPs all scheduled. US 2 days ago was cephalic 06/17/22 -?-?-?-?-?-?-?-?-?-?-?-?- 34w 5d 170 lb 4 oz 105/71 Nega tive -?-?-?-?-?-?-?-?-?-?-?-?- Negative 150 34 Breech -?-?-?-?-?-?-?-?-?-?-?-?- JV- breech again . ac <1st%. sending to L&D for rescue steroid dose and scheduling cesaren for 37 weeks. continue twice weekly bpp and weekly UAD 06/25/22 -?-?-?-?-?-?-?-?-?-?-?-?- 35w 6d 170 lb 2 oz 118/79 1+ -?-?-?-?-?-?-?-?-?-?-?-?- Negative 145 33 Cephalic -?-?-?-?-?-?-?-?-?-?-?-?- JV- no lof, vagi nal bleeding or dec fm. has BPP tomorrow. next week will do GBS. recommend pushing fluids tonight. pt was sick since thursday. 07/03/22 -?-?-?-?-?-?-?-?-?-?-?-?- 37w 0d 170 lb 4 oz 122/81 Nega tive -?-?-?-?-?-?-?-?-?-?-?-?- Negative -?-?-?-?-?-?-?-?-?-?-?-?- SM- gbs collecte d. plan IOL thursday07/07/22 -?-?-?-?-?-?-?-?-?-?-?-?- 37w 4d 175 lb 6 oz 122/81 Nega tive -?-?-?-?-?-?-?-?-?-?-?-?- Negative 140 -?-?-?-?-?-?-?-?-?-?-?-?- -work in for d ecreased FM and reactive NST. Reviewed kick counts. IOL tomorrow. ROS Constitutional Constitutional: Denies change in weight, fatigue, fever(s), headache(s), poor appetite or weakness Eyes Eyes: Denies blurry vision, change in vision, seeing flashes or spots in vision ENT HEENT: Denies dizziness, headache(s), loss taste/smell or sore throat Cardiovascular Cardiovascular: Denies chest pain, dizziness, dyspnea, irregular heart rhythm, leg edema, palpitations, rapid heart rate or vomiting Respiratory/Chest Respiratory/Chest: Denies chest tightness, cough, dyspnea or breast pain Gastrointestinal Gastrointestinal: Denies abdominal pain, anorexia, constipation, cramping, diarrhea, hemorrhoids, vomiting or weight changes Genitourinary Genitourinary: Denies dysuria, flank pain, genital lesions, genital pain, urinary frequency or urinary urgency Musculoskeletal Musculoskeletal: Denies back pain, difficulty walking, joint pain, limited range of motion, muscle cramps or numbness Integumentary Integumentary: Denies lesions or unusual bruising Neurologic Neurologic: Denies abnormal movements, abnormal speech, dizziness, numbness, seizure-like activity or syncope Psychiatric Psychiatric: Denies anxiety, behavioral changes, change in appetite, change in libido, cognitive impairment, confusion, depression, difficulty concentrating, hallucinations or suicidal thoughts Endocrine Endocrinology: Denies excessive sweating, polydipsia or polyuria Hematologic/Lymphatic Hematologic/Lymphatic: Denies easy bleeding, easy bruising or lymphadenopathy Allergic/Immunologic Allergic/Immunologic: Denies itchy eyes, lip swelling, seasonal rhinorrhea, rhinitis, throat swelling, tongue swelling, eczemia, wheezing or asthma Vital Signs Vital Signs Vital Signs: Weight Weight: 172 lb Body Mass Index (BMI) 29.5 Physical Exam Const alert, oriented x3, no apparent distress and healthy appearing General Appearance: cooperative; Negative for anxious HEENT normocephalic Face and Sinus: normal facial exam Eyes EOMs intact bilaterally and no scleral icterus General Eye: normal appearance of both eyes Neck full ROM and supple Lymph Lymphatic: no lymphadenopathy noted Chest Chest: abnormal inspection of the chest Resp normal respiratory effort Effort and Inspection: able to speak in complete sentences Cardio regular rate GI soft to palpation and non-tender Inspection: gravid Palpation: soft; Negative for tender external exam normal Amniotic Fluid: ROM+plus Back/Spine no CVA tenderness Extremity normal to inspection, full ROM and no clubbing, cyanosis or edema General Extremity: Negative for calf tenderness or edema Skin Lesions: no lesions Rashes: no rashes Psych mental status grossly normal Labs Labs Labs: Blood Type O POSITIVE Antibody Screen NEGATIVE Hct 31.2 % (37-47) L Hgb 10.4 g/dL (12.0-15.0) L Pap Smear Negative Obstetrics US Syphilis Total Ab Non-reactive Rubella IgG Antibody Reactive (Nonreactive) Hep Bs Antigen Non-Reactive (Nonreactive) Chlamydia DNA (CHELSI) Negative (Negative) Neisseria gonorrhoeae DNA (CHELSI) Negative (Negative) HIV 1&2 Antibody Non-Reactive (Nonreactive) Glucose 1 Hr 50 gm 115 mg/dL (70-140) Rhogam given: No Assessment & Plan (1) UTI (urinary tract infection): COMMENT: treated with macrobid 03/26 based on symptoms. following cx -will need repeat culture at next visit:persists and daily keflex (2) Short cervical length during : COMMENT: 2.2cm on 03/10/2022 0.9-1.3cm on exam with MFM 03/31, moderate yeast infection and mfm did not want to do a cerclage until cleared up. starting treatment for yeast and vaginal progesterone. then reassessment. s/p indocin + BMZ (3) IUGR (intrauterine growth restriction): COMMENT: MFM consult in place- mfm to do weekly UAD until 26 weeks then recommending we do twice weekly testing in our office and with them (NST's weekly here and BPP/UAD with them starting 26 weeks)05/14- 1030g 17% AC 1% (4) Lump of right breast: COMMENT: breast ultrasound ordered (5) Tobacco abuse: COMMENT: current smoker, working on quitting during . encouraged cessation (6) Supervision of high risk , antepartum: COMMENT: PRR , FELICIANO 07/24/22, girl isabel Littlejohn 3yo, Godfrey 8yo, KRIS Juárez (7) : QUALIFIERS: Weeks of gestation: 35 weeks Qualified Code(s): Z3A.35 - 35 weeks gestation of COMMENT: Low risk NIPT (8) History of loop electrical excision procedure (LEEP): COMMENT: 2014 Paps negative since PLAN: Plan Patient presents IOL, plan management for with pitocin/AROM. Pain management: plans epidural. GBS negative. Management of any complications: iugr, smoker I have reviewed the [facility] and made any clinically relevant updates.
[2022-07-08] MEDS: Lactated Ringers 1,000 ML 50 ML IV (07:30)
[2022-07-08 07:45] LABS: Absolute Lymphocyte Count 2.87 X10^3/uL (0.83-4.51); Absolute Neutrophil Count 9.4 X10^3/uL (2.0-7.7); Basophil# 0.03 X10^3/uL; Basophil% 0.2 % (0-1); Eosinophil# 0.07 X10^3/uL; Eosinophils% 0.5 % (0-5); Hematocrit 31.4 % (37-47); Hemoglobin 10.5 g/dL (12.0-15.0); Lymphocyte # 2.87 X10^3/ul (0.83-4.51); Lymphocyte % 21.2 % (19-41); Mean Corp Hgb Conc 33.4 g/dL (32-36); Mean Corpuscular Hgb 30.6 pg (27.0-32.0); Mean Corpuscular Volume 91.5 fL (81-99); Mean Platelet Vol. 9.3 fl (6.2-12.0); Monocyte# 1.14 X10^3/uL; Monocyte% 8.4 % (0-10); NRBC Flagged by Analyzer 0 % (0-5); Neutrophil # 9.38 X10^3/uL (2.7-7.7); Neutrophil % 69.4 % (47-70); Platelet Count 315 K/mm3 (150-450); RBC Distribution Width CV 13.1 % (11.6-14.6); Red Blood Count 3.43 M/mm3 (4.2-5.4); White Blood Count 13.5 K/mm3 (4.4-11.0)
[2022-07-08] MEDS: Oxytocin 15 Units/NS 250ml 15 UNITS/250 ML IV.SOLN 2 UNITS IV (07:51)
[2022-07-08] MEDS: LACTATED RINGERS 500 ML 999 ML IV (09:56)
[2022-07-08] MEDS: fentaNYL-bupivacaine (epidural) 100 ML BAG EPIDURAL (11:09)
--- NOTE | 2022-07-08 12:58 | PCM.PN.BLA ---
Progress Note pt is comfortable with epidural and consents to AROM current tracing: FHT: Moderate variability reactive no decelerations category I tracing [place]: q2-3 minContractions cx: 4/80/-1, membranes ruptured with clear fluid return reviewed tracing abnormalities since last note: 2 late decels present A/P: IUGR continue pitocin expect later today
--- NOTE | 2022-07-08 14:57 | OP.PCM_ITS ---
Assessment & Plan (1) Short cervical length during : COMMENT: 2.2cm on 03/10/2022 0.9-1.3cm on exam with MFM 03/31, moderate yeast infection and mfm did not want to do a cerclage until cleared up. starting treatment for yeast and vaginal progesterone. then reassessment. s/p indocin + BMZ (2) IUGR (intrauterine growth restriction): COMMENT: MFM consult in place- mfm to do weekly UAD until 26 weeks then recommending we do twice weekly testing in our office and with them (NST's weekly here and BPP/UAD with them starting 26 weeks)12/- 1030g 17% AC 1% (3) Tobacco abuse: COMMENT: current smoker, working on quitting during . encouraged cessation (4) Supervision of high risk , antepartum: COMMENT: PRR , FELICIANO 07/24/22, girl isabel Littlejohn 3yo, Godfrey 8yo, BF Franck (5) History of loop electrical excision procedure (LEEP): COMMENT: 2014 Paps negative since (6) : QUALIFIERS: Weeks of gestation: 35 weeks Qualified Code(s): Z3A.35 - 35 weeks gestation of COMMENT: Low risk NIPT Maternal Data Information FELICIANO Calculator Estimated Delivery Date Method Current WG Current Estimate 07/24/22 Ultrasound #1 37w 5d Other Estimates 08/01/22 LMP (Certain) 36w 4d Final FELICIANO: 07/24/22 Final FELICIANO Source: US <20 weeks Gestational age: 37 weeks 5 days Vaginal Delivery Operative Information Date of Procedure: 07/08/22 Pre-Operative Diagnosis: @ 37 weeks 5 days, IUGR Post-Operative Diagnosis: @ 37 weeks 5 days, IUGR Surgery / Procedure Performed: Spontaneous Vaginal Delivery Type of Anesthesia: Epidural Drain: Mathur to straight drain Estimated Blood Loss: 50cc Findings Description of Procedure: Patient began pushing and delivered the head in the CHEVY presentation. The head was delivered atraumatically and a tight nuchal cord ?1 was identified and easily reduced over the infant's head. The anterior and posterior shoulders delivered without complication followed by the rest of the and the infant was placed on the maternal abdomen. Delayed cord clamping was employed for ap proximately 60 seconds. Cord was clamped and cut and gentle traction was applied to the cord and the placenta delivered spontaneously immediately following it was noted to be intact with three-vessel cord. The perineum and vagina were inspected and noted to have no laceration. EBL was 50cc. Patient and infant tolerated delivery well. baby girl Scarlet Presentation: Vertex Amniotic Membrane Rupture Type: Artificial Amniotic Fluid Description: Clear Placental Delivery Description: Spontaneous Placenta Disposition: [facility] Cord Vessel Description: 3 Vessels Cord Entanglement: Around neck x 1, tight Nuchal Cord Compression: Without compression Infant A Gender: Female (1 minute): 8 (5 minute): 9 Delayed Cord Clamping: Yes Post Vaginal Delivery Medications Given After Delivery: IV Pitocin Episiotomy Description: None Laceration: None Complication Complications: None Multi Select Codes Urinary/Genital Urinary/Genital CPT Codes: 45961 Vaginal Delivery+ PP Care([facility])
--- NOTE | 2022-07-08 20:13 | NURSING ---
Room temperature is warm and patient is covered in blankets. She states she feels warm. Will recheck her temperature. Denies feeling fevered.
[2022-07-09 03:35] VITALS: BP 98/60; PULSE 91; RESP 16; TEMP 36.7
--- NOTE | 2022-07-09 08:16 | PCM.PN.OB ---
Subjective Subjective Patient doing well without complaints. Tolerating PO. Ambulating and voiding without difficulty. Feeding well. Denies chest pain, shortness of breath, calf pain/swelling, fevers, chills, lightheadedness. Objective Data Objective Data Vital Signs: Vital Signs Temp Pulse Resp BP Pulse Ox O2 Del Method 98.0 F 91 16 98/60 97 Room Air 07/09/22 03:35 07/09/22 03:35 07/09/22 03:35 07/09/22 03:35 07/08/22 20:00 07/09/22 03:35 Oxygen Delivery Method Room Air Weight: 172 lb Body Mass Index (BMI) 29.5 Intake & Output: Intake and Output for Last 24 Hours 07/07/22 07/08/22 07/09/22 23:59 23:59 23:59 Intake Total 1542.50 / 1542.50 Output Total 1550 / 1550 Balance -7.50 / -7.50 Lab / Micro Data Result Diagrams: 07/08/22 07:30 Labs: Laboratory Results - last 24 hr 07/08/22 07:30: Blood Type O POSITIVE, Antibody Screen NEGATIVE Physical Exam Const alert, oriented x3 and no apparent distress Lymph Lymphatic: no lymphadenopathy noted Chest Nipple/Areola: nipples/areola normal Resp normal respiratory effort, normal air movement and no retractions GI GI Narrative: fundus firm @u. mild lochia. no clots Assessment & Plan (1) (spontaneous vaginal delivery): COMMENT: at 37+6 girl JV PLAN: s/p PPD # 1 1. routine post delivery care 2. breast feeding- support given 3. rh positive 4. rubella immune 5. plan d/c tomorrow
[2022-07-09 08:56] VITALS: BP 100/60; PULSE 89; RESP 16; TEMP 36.7; O2SAT 98
[2022-07-09 11:34] VITALS: BP 112/68; PULSE 99; RESP 16; TEMP 36.9; O2SAT 98
[2022-07-09 15:31] VITALS: BP 110/61; PULSE 99; RESP 18; TEMP 36.7; O2SAT 99
[2022-07-09 20:10] VITALS: BP 142/79; PULSE 119; RESP 17; TEMP 36.6
[2022-07-09 20:40] VITALS: BP 116/70; PULSE 115
[2022-07-10 01:35] VITALS: BP 110/67; PULSE 94; RESP 16
[2022-07-10 07:44] VITALS: BP 107/72; PULSE 86; RESP 16; TEMP 36.9; O2SAT 96
--- NOTE | 2022-07-10 08:05 | PCM.PN.OB ---
Subjective Subjective Patient doing well without complaints. Tolerating PO. Ambulating and voiding without difficulty. feeding well. Denies chest pain, shortness of breath, calf pain/swelling, fevers, chills, lightheadedness. Objective Data Objective Data Vital Signs: Vital Signs Temp Pulse Resp BP Pulse Ox O2 Del Method 98.4 F 86 16 107/72 96 Room Air 07/10/22 07:44 07/10/22 07:44 07/10/22 07:44 07/10/22 07:44 07/10/22 07:44 07/10/22 07:44 Oxygen Delivery Method Room Air Weight: 172 lb Body Mass Index (BMI) 29.5 Intake & Output: Intake and Output for Last 24 Hours 07/08/22 07/09/22 07/10/22 23:59 23:59 23:59 Intake Total 1542.50 / 1542.50 Output Total 1550 / 1550 Balance -7.50 / -7.50 Lab / Micro Data Result Diagrams: 07/08/22 07:30 ROS Constitutional Constitutional: Reports systems reviewed and no addt'l complaints, except as documented Cardiovascular Cardiovascular: Reports systems reviewed and no addt'l complaints, except as documented Respiratory/Chest Respiratory/Chest: Reports systems reviewed and no addt'l complaints, except as documented Gastrointestinal Gastrointestinal: Reports systems reviewed and no addt'l complaints, except as documented Physical Exam Const alert, oriented x3 and no apparent distress HEENT Head and Scalp: atraumatic Resp normal respiratory effort GI soft to palpation and non-tender Bimanual Exam - Vag & Uterus: uterus non-tender Uterus Palpation: uterus fundus firm (below Umbilicus) Assessment & Plan (1) Vaginal delivery: PLAN: Plan s/p PPD # 2 1. routine post delivery care 2. breast feeding- support given 3. rh positive 4. rubella immune
--- NOTE | 2022-07-10 08:06 | DCINST_ITS ---
Discharge Instructions Diet Discharge Diet: No restrictions Activity Discharge Activity: Return to Normal Activity, May Drive, May Shower and May Take a Tub Bath (in 4 weeks) May resume sexual activity in: 6-8 weeks (after seen by OB provider) Weight Bearing Status: Full weight bearing Lifting Restrictions: none Dressing / Incision Call your doctor if you observe: Fever of 101 or Higher, Inability to urinate, Using more than 1 pad per hour (for more than 2 hours in a row or more), Shortness of breath, Dizziness, Chest pain and - (headache not controlled with tylenol, change in vision) Follow Up Care When: in 6 weeks for visit, call the office to make the appointment. If you had elevated blood pressures call the office to be seen within 1 week. Test Results: Test results from this visit will be discussed in further detail at your follow- up appointment, if applicable. Discharge Plan Admission Admit Date/Time: 07/08/22 06:56 Attending Provider: Anny Valdez Primary Care Provider: Care Physician,Alexa Primary Discharge Orders/Prescriptions Prescriptions: No Action BAT-vocs-VM-ogi-pkk-lanse-3 60-1 mg combo pack 1 pkg PO DAILY nitrofurantoin monohyd/m-cryst [Macrobid] 100 mg capsule 100 mg PO DAILY Rx Instructions: must administer with a meal/food Referrals / Follow Up: Care Physician,No Primary [Primary Care Provider] - Disposition Disposition (needs filled in before D/C Order can be placed): Home, Self Care
--- NOTE | 2022-07-10 12:31 | NURSING ---
This nurse reviewed the documentation completed by Jayla Augustine student nurse.
[2022-07-10 13:19] VITALS: BP 106/66; PULSE 89; RESP 16; TEMP 36.9; O2SAT 100
== END 2022-07-10 17:25 | disposition home or self-care (01) | DRG 560 ==
PROVIDERS: Admitting Provider Obstetrics & Gynecology; Referring Provider Obstetrics & Gynecology; Visit Provider Obstetrics & Gynecology
DX: O36.5930 Maternal care for other known or suspected poor fetal growth, third trimester, not applicable or unspecified (principal); Z37.0 Single live birth; O26.873 Cervical shortening, third trimester; F17.210 Nicotine dependence, cigarettes, uncomplicated; Z3A.37 37 weeks gestation of pregnancy; O69.2XX0 Labor and delivery complicated by other cord entanglement, with compression, not applicable or unspecified; O99.334 Smoking (tobacco) complicating childbirth; O99.892 Other specified diseases and conditions complicating childbirth; N39.0 Urinary tract infection, site not specified
CPT/HCPCS: 59025; 59050; 85025; 86850; 86900; 86901; 99221; J7120; G0378

== ENCOUNTER → 2022-12-15 | Outpatient (CLI) | payer MEDICAID, SELFPAY ==
[2022-12-15 13:58] LABS: hCG Titer Quant., Serum 11 mIU/mL (1-3)
== END | disposition home or self-care (01) ==
PROVIDERS: Referring Provider Registered Nurse; Visit Provider Registered Nurse
DX: Z32.01 Encounter for pregnancy test, result positive (principal)
CPT/HCPCS: 36415; 84702

== ENCOUNTER 2022-12-20 17:48 | Emergency (ER) | payer MEDICAID, SELFPAY ==
[2022-12-20 17:49] VITALS: BP 119/83; PULSE 81; RESP 16; TEMP 36.8; O2SAT 100; BMI 25.7
--- NOTE | 2022-12-20 18:00 | EDS_ITS ---
HPI HPI - Female History of Present Illness Chief Complaint: Vag Bld, Preg Informant: patient Bleeding Issue: Positive for Vaginal bleeding Onset: Today Context: Gradual Onset Timing: Intermittent Current Severity: Spotting and Mild Maximum Severity: Mild Associated Symptoms Associated Symptoms: Negative for Dysuria or Frequency Test: Positive Sexually: Positive for Active Control: No control P: 3 Ab: 0 Narrative Narrative: 32-year-old female Ab0. States she is currently . Her last menstrual period was about a month ago. Her blood type O(+). She is about 13 weeks . Having very mild intermittent cramping. No significant clots. No dysuria. No fever. She has not had a specific HIGH SCHOOL ADMISSIONS REPRESENTATIVE appointment yet for this she just found out she was last 1 to [address] She has seen Dr[address] Evelia Askew before in the past. She denies any discharge, fever or prior ectopic. Prior similar symptoms: Yes Recent Illness/Hospitalization: No PFSH PFSH Medical History Abnormal Papanicolaou smear of cervix with positive human papilloma virus (HPV) test Anxiety Fracture History of placenta previa History of polyhydramnios IUGR (intrauterine growth restriction) (spontaneous vaginal delivery) Home Medications nitrofurantoin monohydrate/macrocrystals 100 mg capsule (Macrobid) 100 mg PO DAILY UTI 06/27/22 [History Last Taken 07/06/22] norethindrone acetate 5 mg tablet (Aygestin) 5 mg PO .COMPLEX #45 tabs 09/03/22 [Rx Last Taken Unknown] Allergy/AdvReac Type Severity Reaction Status Date / Time sulfamethoxazole Allergy Rash Verified 12/20/22 17:50 [From Bactrim] trimethoprim [From Bactrim] Allergy Rash Verified 12/20/22 17:50 Family History Mother Hypertension Grandmother Asthma Hypertension Hyperlipemia Breast cancer Grandfather Diabetes Aunt Seizures Uncle Hyperlipemia Surgical History Hx LEEP (loop electrosurgical excision procedure), cervix, (~2014) Hx of appendectomy (~1998) Social History adopted: No household members: family and children housing: house number of children: 2 current occupational status: employed current occupation: [employer] pets and animals: Yes pets and animals: dog(s) history of recent travel: No sexually active: Yes Smoking Status: Current every day smoker tobacco type: cigarettes Tobacco: How many years used: 13 second hand exposure: Yes quit status: considering quitting alcohol intake: never substance use type: does not use well-balanced diet: about half the time caffeine: Yes Type: carbonated beverages Number of servings: 2 during the past year weight has: decreased > 10 lbs what type of physical activity do you participate in: none concepcion/rastafarian: None seatbelt use: sometimes do you feel safe at home: Yes additional social history: Franck- [place]- 6yo [facility]- 1yo ROS ROS ED ROS Narrative Vaginal bleeding. Review of Systems ROS Unobtainable: Denies due to encephalopathy Constitutional Constitutional ED: Denies chills or fever(s) Eyes Eyes: Denies blurry vision ENT ENT ED: Denies ear pain Cardiovascular Cardiovascular: Denies chest pain Respiratory/Chest Respiratory/Chest: Denies cough or dyspnea Gastrointestinal Gastrointestinal: Denies abdominal pain Genitourinary Genitourinary ED: Denies dysuria or hematuria Musculoskeletal Musculoskeletal: Denies arthralgias Integumentary Denies abscess Neurologic Neurologic: Denies headache(s) Psychiatric Psychiatric: Denies anxiety Endocrine Endocrinology: Denies heat intolerance Hematologic/Lymphatic Hematologic/Lymphatic: Denies easy bleeding or easy bruising Allergic/Immunologic Allergic/Immunologic ED: Denies mouth swelling EXAM Physical Exam Narrative Exam Narrative: 32-year-old female no acute distress. Vital signs stable afebrile. Initial blood pressure 119/83. She does not look septic toxic in any distress. HEENT exam unremarkable. Lungs clear. Heart regular rhythm rate about 80 no murmur. Abdomen soft, nontender, nondistended normal bowel sounds no peritoneal signs. Moving all 4 extremities. Nontender no edema. Back nontender. Neurologically she is awake and alert. Patient did not want a pelvic exam. Const Vital Signs: 12/20/22 17:49 Temperature 98.2 F Temperature Source Temporal Pulse Rate 81 Respiratory Rate 16 Blood Pressure 119/83 H Blood Pressure Mean 95 Pulse Ox 100 Oxygen Delivery Method Room Air Positive well nourished and well developed; Negative for obese, cachectic, contractures or unkempt General Appearance ED: well developed and NAD; Negative for unkempt, cachectic, contractures, odor of alcohol detected or pallor Nutritional Appearance: Negative for cachectic or obese HEENT Reports moist mucous membranes Negative for trauma Eyes EOMs intact bilaterally General Eye ED: Negative for pale conjunctiva or scleral icterus Neck no lymphadenopathy, supple and no JVD General: Negative for other Thyroid: Negative for tender Lymph Lymphatic: Negative for other Chest Wall inspection of chest normal and palpation of chest normal Chest: Negative for other Resp normal respiratory effort and clear to auscultation bilaterally Effort and Inspection: Negative for pain with movement Auscultation: Negative for rales, rhonchi or wheezes Cardio regular rate, regular rhythm, S1 normal heart sound, no murmurs and no JVD Rate: Negative for bradycardia or tachycardic Rhythm: Negative for abnormal rhythm GI normal to inspection, nondistended, normoactive bowel sounds, soft to palpation, non-tender, non-distended and no masses Auscultation: Negative for normoactive bowel sounds Palpation: Negative for tender, guarding or rigid Back/Spine no CVA tenderness General Back: Negative for CVA tenderness Cervical Spine: Negative for cervical spine tenderness Thoracic Spine / Upper Back: Negative for thoracic spinal tenderness Lumbar Spine / Lower Back: Negative for lumbar spinal tenderness Sacrum: Negative for other Extremity normal to inspection and full ROM General Extremety ED: Negative for edema or tenderness General Extremity: Negative for edema Neuro oriented x3 and CN's II-XII intact bilaterally Sensorium / Orientation: alert, oriented to person, oriented to place and oriented to time; Negative for confused, lethargic or stuporous Motor Exam: strength 5/5 throughout Psych mental status grossly normal Appearance: Negative for unkempt Attitude: No agitated Speech: No other Mood & Affect: Negative for depressed, anxious or tearful Skin no rashes or lesions noted and no wounds General Skin Exam: Negative for jaundice or pallor Rashes: No rashes noted Trauma: Negative for other MDM MDM MDM Narrative Medical decision making narrative: [id number] female G4, P3 Ab0. Vaginal spotting and . Positive recent test. No prior ultrasound. Now having spotting and bleeding. No significant pain. Patient does not want pelvic exam. I explained to her last quant was only like 11. We will get another quant if is not close to 1500 or higher I do not think an ultrasound would be of any significance. She is really no significant pelvic or abdominal pain at all on exam. She is having no urinary symptoms. Repeat exam at 7:07 PM patient doing well. She will be discharged home to follow-up with her HIGH SCHOOL ADMISSIONS REPRESENTATIVE as an outpatient. We went over her test results. Lab Data Attestation: I reviewed the patient's lab results. Lab results narrative: Today's quant was less than 1 which means she is not . 5 days ago it was 11. She was either never or very early and is now had a miscarriage. Labs: Laboratory Results - last 24 hr 12/20/22 18:25 HCG, Quant < 1 Discharge Plan Triage Chief Complaint: Vag Bld, Preg ED Provider: Humberto Hopkins Dx/Rx/DC Orders Clinical Impression: Spontaneous miscarriage, Vaginal bleeding Prescriptions: No Action nitrofurantoin monohyd/m-cryst [Macrobid] 100 mg capsule 100 mg PO DAILY Rx Instructions: must administer with a meal/food norethindrone acetate [Aygestin] 5 mg tablet 5 mg PO .COMPLEX Qty: 45 0RF Rx Instructions: 5 mg PO tid until bleeding stops X 24 hr then bid to finish Rx Primary Care Provider: Care Physician,No Primary Referrals: Evelia Askew MD [Med Staff - Active Staff] - As soon as possible Care Physician,No Primary [Primary Care Provider] - Activity Restrictions/Additional Instructions: Follow-up with your HIGH SCHOOL ADMISSIONS REPRESENTATIVE Dr. Evelia Askew. You are either never or had a very early with a miscarriage. Your quant originally was only 11 which is very very low and very early. Antedates less than 1. Motrin and Tylenol for pain. Return if fever, severe pelvic pain or heavy bleeding with large clots. Disposition Disposition: Home, Self Care
[2022-12-20 19:05] LABS: hCG Titer Quant., Serum < 1 mIU/mL (1-3)
== END 2022-12-20 19:18 | disposition home or self-care (01) ==
PROVIDERS: Emergency Provider Emergency Medicine; Visit Provider Emergency Medicine
DX: O03.9 Complete or unspecified spontaneous abortion without complication (principal)
CPT/HCPCS: 84702; 99282

== ENCOUNTER → 2023-05-15 | Outpatient (CLI) | payer MEDICAID, SELFPAY ==
[2023-05-19 10:09] LABS: Chlamydia By Nucleic Acid AMP Negative (Negative); Gonococcus By Nucleic Acid AMP Negative (Negative)
[2023-05-21 09:08] LABS: HPV APTIMA, High Risk Negative (Negative)
== END | disposition home or self-care (01) ==
LOC: LABSPEC 16:56
PROVIDERS: Referring Provider Registered Nurse; Visit Provider Registered Nurse
DX: N93.9 Abnormal uterine and vaginal bleeding, unspecified (principal)
CPT/HCPCS: 87491; 87591; 87624; 88175; G0145

== ENCOUNTER → 2023-05-18 | Outpatient (CLI) | payer MEDICAID, SELFPAY ==
[2023-05-18 13:32] LABS: Absolute Lymphocyte Count 2.67 X10^3/uL (0.83-4.51); Absolute Neutrophil Count 5.8 X10^3/uL (2.0-7.7); Basophil# 0.04 X10^3/uL; Basophil% 0.4 % (0-1); Eosinophil# 0.08 X10^3/uL; Eosinophils% 0.8 % (0-5); Hematocrit 33.1 % (37-47); Hemoglobin 10.3 g/dL (12.0-15.0); Lymphocyte # 2.67 X10^3/ul (0.83-4.51); Lymphocyte % 28.1 % (19-41); Mean Corp Hgb Conc 31.1 g/dL (32-36); Mean Corpuscular Hgb 27.7 pg (27.0-32.0); Mean Platelet Vol. 9.4 fl (6.2-12.0); Monocyte# 0.82 X10^3/uL; Monocyte% 8.6 % (0-10); NRBC Flagged by Analyzer 0 % (0-5); Neutrophil # 5.84 X10^3/uL (2.7-7.7); Neutrophil % 61.7 % (47-70); Platelet Count 360 K/mm3 (150-450); RBC Distribution Width CV 15.2 % (11.6-14.6); RBC Distribution Width SD 49.5 fl (35.1-43.9); Red Blood Count 3.72 M/mm3 (4.2-5.4); White Blood Count 9.5 K/mm3 (4.4-11.0)
[2023-05-18 14:06] LABS: T4 Free Direct 0.89 ng/dL (0.76-1.46); Thyroid Stim Hormone (TSH) 0.49 uIU/mL (0.358-3.74)
== END | disposition home or self-care (01) ==
PROVIDERS: Referring Provider Registered Nurse; Visit Provider Registered Nurse
DX: N93.9 Abnormal uterine and vaginal bleeding, unspecified (principal)
CPT/HCPCS: 36415; 84439; 84443; 85025

== ENCOUNTER → 2023-06-09 | Outpatient (CLI) | payer MEDICAID, SELFPAY ==
--- NOTE | 2023-06-09 19:16 | US_ITS ---
STUDY: ULTRASOUND TRANSVAGINAL CLINICAL: Female, 32 years old. AUB TECHNIQUE: Transvaginal COMPARISON: None. FINDINGS: Normal uterine size measuring 8.6 x 6.2 x 4.9 cm in maximal craniocaudal dimension. There are no myometrial masses. Normal endometrial thickness measuring 15 mm. There are no endometrial masses, and there is no fluid in the endometrial cavity. Endometrial echoes are hyperechoic. No endometrial contents are seen. Normal uterine cervix. Normal right ovary, measuring 3.8 x 2.5 x 2.1 cm. 1.9 cm cyst. Normal left ovary, measuring 3.4 x 1.9 x 1.2 cm. There are multiple follicles without a dominant cyst. There is no free fluid in the pelvis. Polycystic ovary disease: No. US/Transvaginal Non- IMPRESSION: 1.9 cm cyst of the right ovary, endometrial echoes at the upper limits of normal. Otherwise negative Electronically Signed: Jarocho Brody MD at 18:17 EST ,
--- OUTSIDE RECORDS SUMMARY | 2023-06-09 19:16 | XMS RPT_ITS | CCD ---
Author Name Unknown Address [address] [place] [address] Organization [facility] Care Team Providers Care Legal Intern Name Role Phone SUNNI VILLALTA ([employer]ING) Unavailable Unavailable Kori Blake Attending Unavailable PROVIDER, UNKNOWN Referring Unavailable No, PCP Primary Care Unavailable HENRY FAULKNER Primary Care Unavailradha e HENRY FAULKNER Referring Unavailabl e CARLOS VEORNICA Attending Unavailable HENRY FAULKNER Primary Care Unavailabl e GUY THIBODEAUX Referring Unavailab le JESÚS ESPINOZA Attending Unavailable HENRY FAULKNER Primary Care Unavailradha e GUY THIBODEAUX Referring Unavailab le GLENYS, CARLOS A Attending Unavailable HENRY FAULKNER Primary Care Unavailabl e UGY THIBODEAUX Referring Unavailab le VERONICA, CARLOS A Attending Unavailable NO PRIMARY CAREMD Primary Care Unavailable GUY THIBODEAUX Referring Unavailab le CARLOS VERONICA A Attending Unavailable NO PRIMARY CAREMD Primary Care Unavailable GUY THIBODEAUX Referring Unavailab le VERONICA, CARLOS A Attending Unavailable NO PRIMARY CAREMD Primary Care Unavailable GUY THIBODEAUX Referring Unavailab le CARLOS VERONICA A Attending Unavailable NO PRIMARY CAREMD Primary Care Unavailable GUY THIBODEAUX Referring Unavailab le GLENYS, CARLOS A Attending Unavailable NO PRIMARY CAREMD Primary Care Unavailable GUY THIBODEAUX Referring Unavailab le JESÚS ESPINOZA Attending Unavailable GUY THIBODEAUX Referring Unavailab le VANDEVELDE, GUY Boles PRIMARY CAREMD Primary Care Unavailable Allergies Allergy Classification Reported Allergen(s) Allergy Type Date of Onset Reaction(s) Facility (2 sources) sulfamethoxazole ; Translations: [SULFAMETHOXAZOL E] Drug Allergy 05-09-2013 [facility] Repository Problems Problem Classification Problem Date Documented Da te Episodic/Chronic Unclassified (1 source) Unknown / UNK(Unknown) Onset: 04-10-2017 Results Test Name Value Interpretation Reference Range Facil ity Encounters Encounter Date Encounter Type Care Provider Facility Start: 06-03-2022 End: 06-03-2022 ambulatory [facility] Start: 05-26-2022 End: 05-26-2022 ambulatory HENRY FAULKNER [facility] Start: 05-22-2022 End: 05-22-2022 ambulatory HENRY FAULKNER [facility] Start: 05-14-2022 End: 05-14-2022 ambulatory HENRY FAULKNER [facility] Start: 04-30-2022 End: 04-30-2022 ambulatory [facility] Start: 04-24-2022 End: 04-24-2022 ambulatory MD [facility] Start: 04-17-2022 End: 04-17-2022 ambulatory MD [facility] Start: 04-10-2022 End: 04-10-2022 ambulatory MD [facility] Start: 03-31-2022 End: 04-01-[address] [facility] Start: 03-31-2022 End: 03-31-2022 ambulatory MD [facility] Start: 04-10-2017 End: 04-14-2017 Ambulatory SUNNI VILLALTA [facility] Payers Date Payer Category Payer Unknown [id number] 2.16. [id number] 1988 Unknown [id number] 2.16. [id number] 1988 Unknown [id number] 2.16. [id number] 1988 Unknown [id number] 2.16. [id number] 1988 Unknown [id number] 2.16. [id number] 1988 Unknown [id number] 2.16. [id number] 1988 Unknown [id number] 2.16. [id number] 1988 Unknown [id number] 2.16. [id number] 1988 Unknown [id number] 2.16. [id number] 1988 Unknown [id number] 2.16. [id number] 1988 Unknown [id number] 2.16. [id number]. Unknown Unknown [id number] Discharge summary note 03-31-2022 Note Date & Type Note Facility 03-31-2022 Note Attestation signed by Yennifer Mendiola MD at 04/02/2022 2:28 PM I reviewed and agree with the care provided by the resident/CNM/JOHNNIE during the visit including the patient's medical history, the resident's findings in the physical exam, patient's diagnosis and discharge plan See my note as well regarding plan for discharge today and follow up given FGR. Questions answered and precautions addressed Less than 30 minutes spent today Department of Obstetrics and Gynecology [facility] Discharge Summary Admission on 03/31/2022 2:44 PM Evert Liang is a 31 y.o. at 23w4d who was admitted to [facility] for possible cerclage due to short cervix. CL noted to 9.9 mm on 03/31. In triage, SSE + hyphae and SVE fingertip dilated. She was treated with diflucan x2 doses. Overnight she was started on tocolysis and latency antibiotics. She received BMZx2 on 03/31-. On repeat TVUS on 04/01, CL improved to 15 mm and on recheck of SVE cervix closed. Discussed options with the patient as well as risks and benefits of cerclage vs vaginal progesterone in the periviable periods. Pt opting for vaginal progesterone and close monitoring. Growth US also performed and FGR noted based on AC of 4%ile. Recommend smoking cessation, and q2 wk growth US with weekly BPP/UAD in [place]. Pt discharged home in stable condition with strict return precautions after completing BMZx2 and 48 hours of tocolysis. Meds: Medication List START taking these medications progesterone 200 MG Caps capsule Commonly known as: Prometrium Take 1 capsule by mouth nightly CONTINUE taking these medications [id number] PO STOP taking these medications nitrofurantoin (macrocrystal-monohydrate) 100 MG capsule Commonly known as: MACROBID Where to Get Your Medications These medications were sent to [facility] [address] - P [phone] - F [phone] [address] [facility] [address] progesterone 200 MG Caps capsule Discharge to: Home Discharge date: 04/01/2022 Discharge Dx: Short Cervix Follow up appointment with your doctor/regulatory and compliance technician - Call office for appointment in 7days Activity - Off feet as much as possible Call your doctor/regulatory and compliance technician if you have: - leaking fluid - vaginal bleeding - regular contractions: More than 6 contractions in one hour - decreased movement - worsening abdominal (belly) pain - headache, blurry vision, increased swelling, upper abdominal pain Smiley Escobar, DO on 04/01/2022 at 5:48 PM [facility] Summary Purpose Family History No Family History Records FoundNo Family History Records FoundNo Family History Records Found Advance Directives No Advanced Directives Records FoundNo Advanced Directives Records FoundNo Advanced Directives Records Found Additional Source Comments INFORMATION SOURCE (unrecogn ized section and content) DATE CREATED AUTHOR AUTHOR'S ORGANIZ ATION 04/02/2022 [facility] DATE CREATED AUTHOR AUTHOR'S ORGANIZ ATION 06/04/2022 [facility] FOR RECORDS PERTAINING TO PATIENTS WHO ARE OR HAVE BEEN ENROLLED IN A CHEMICAL DEPENDENCY/SUBSTANCEABUSE PROGRAM, SOME INFORMATION MAY BE OMITTED. This clinical summary was aggregated from multiple sources. Caution should be exercised in using it in the provision of clinical care. This summary normalizes information from multiple sources, and as a consequence, information in this document may materially change the coding, format and clinical context of patient data. In addition, data may be omitted in some cases. CLINICAL DECISIONS SHOULD BE BASED ON THE PRIMARY CLINICAL RECORDS. [facility] [employer]. provides no warranty or guarantee of the accuracy or completeness of information in this document.
== END | disposition home or self-care (01) ==
LOC: US 19:14
PROVIDERS: Visit Provider Registered Nurse
DX: N93.9 Abnormal uterine and vaginal bleeding, unspecified (principal)
CPT/HCPCS: 76830

== ENCOUNTER → 2024-04-04 | Outpatient (CLI) | payer MEDICAID, SELFPAY ==
[2024-04-04 17:17] LABS: HIV - WCH Non-Reactive (Nonreactive); Hepatitis C Antibody Non-Reactive (Nonreactive); Syphilis Antibodies Non-reactive
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
[2024-04-06 21:07] LABS: Chlamydia By Nucleic Acid AMP Negative (Negative); Gonococcus By Nucleic Acid AMP Negative (Negative)
== END | disposition home or self-care (01) ==
LOC: WOBLAB 13:51
PROVIDERS: Referring Provider Nurse Practitioner Women's Health; Visit Provider Nurse Practitioner Women's Health
DX: Z20.2 Contact with and (suspected) exposure to infections with a predominantly sexual mode of transmission (principal); N89.8 Other specified noninflammatory disorders of vagina
CPT/HCPCS: 36415; 86695; 86696; 86703; 86780; 86803; 87070; 87205; 87491; 87591

== ENCOUNTER → 2024-05-17 | Outpatient (CLI) | payer BC, SELFPAY ==
[2024-05-17 11:37] LABS: hCG Titer Quant., Serum 11395 mIU/mL (1-3)
== END | disposition home or self-care (01) ==
PROVIDERS: Referring Provider Nurse Practitioner Women's Health; Visit Provider Nurse Practitioner Women's Health
DX: Z34.90 Encounter for supervision of normal pregnancy, unspecified, unspecified trimester (principal)
CPT/HCPCS: 36415; 84702

== ENCOUNTER → 2024-05-19 | Outpatient (CLI) | payer BC, SELFPAY ==
--- NOTE | 2024-05-19 15:54 | US_ITS ---
INDICATION: dating EXAMINATION: Ultrasound US OB Transvaginal TECHNIQUE: Transvaginal (for optimal evaluation of the adnexa) pelvic ultrasound was performed. Grayscale, spectral waveform, and color flow Doppler evaluation of the adnexa. COMPARISON: Prior study dated: June 09, 2023 LMP: [March 22, 2024 FINDINGS: UTERUS: 9.1 x 6.3 x 9.3 cm. RIGHT OVARY: 4.6 x 4.1 x 2.9 cm. There is a 1.7 x 1.7 x 1.5 cm cyst within the right ovary which may reflect a corpus luteal cyst. Spectral analysis and Doppler flow of the right ovary is within normal limits. LEFT OVARY: 2.5 x 1.4 x 1.8 cm. Spectral analysis and Doppler flow is within normal limits. FREE FLUID: None. INTRAUTERINE GESTATIONAL SAC: Single. The mean sac diameter measures 1.48 cm YOLK SAC: Identified POLE: Identified. The crown-rump length measures 0.25 cm. . ESTIMATED GESTATION AGE: 6 weeks and 2 days. HEART MOTION: 107 bpm. PLACENTA: Not visualized due to age. SUBCHORIONIC HEMORRHAGE: None. AMNIOTIC FLUID: Qualitatively normal. US/Transvaginal w/Preg US IMPRESSION: Single live intrauterine . Estimated gestational age is 6 weeks and 2 days. Electronically Signed: Jessica Huang MD at 15:13 EST ,
== END | disposition home or self-care (01) ==
PROVIDERS: Referring Provider Nurse Practitioner Women's Health; Visit Provider Nurse Practitioner Women's Health
DX: Z34.90 Encounter for supervision of normal pregnancy, unspecified, unspecified trimester (principal)
CPT/HCPCS: 76817

== ENCOUNTER → 2024-06-02 | Outpatient (CLI) | payer BC, SELFPAY ==
[2024-06-03 20:07] LABS: Chlamydia By Nucleic Acid AMP Negative (Negative); Gonococcus By Nucleic Acid AMP Negative (Negative)
== END | disposition home or self-care (01) ==
PROVIDERS: Referring Provider Obstetrics & Gynecology; Visit Provider Obstetrics & Gynecology
DX: Z34.90 Encounter for supervision of normal pregnancy, unspecified, unspecified trimester (principal)
CPT/HCPCS: 87086; 87088; 87186; 87491; 87591

== ENCOUNTER 2024-06-18 06:47 | Emergency (ER) | payer SELFPAY ==
[2024-06-18 06:47] VITALS: BP 130/85; PULSE 111; RESP 16; TEMP 36.4; O2SAT 100; BMI 26.3
--- NOTE | 2024-06-18 06:50 | ED.VIS.FEGU ---
HPI <Dr. Lucio Blanco MD - Last Filed: 06/18/24 17:15> HPI - Female History of Present Illness Chief Complaint: Vag Bld, Preg Detail of Chief Complaint: Vaginal bleeding that started 45 minutes prior to arrival Informant: patient Pain Pain: Negative for Pelvic Pain, Vulvar Pain or Vaginal Pain Bleeding Issue: Positive for Vaginal bleeding; Negative for Passing clots or Passing tissue Onset: Today (45 minutes prior to arrival) Context: Sudden Onset Timing: Continuous Current Severity: - (Patient is uncertain.) Associated Symptoms Associated Symptoms: Positive for Frequency and Missed Period; Negative for Dysuria or Irregular Period Last known menstrual period: Patient had an ultrasound performed on May 19, 2024 that revealed a si Test: Positive Sexually: Positive for Active Control: No control P: 3 Ab: 0 Narrative Narrative: Patient is a Ab0 female who had a single live intrauterine noted on ultrasound performed May 19, 2024. Estimated gestational age at that time was 6 weeks 2 days. She presents because she began to have vaginal bleeding 45 minutes prior to arrival. She was at work. She does not know how much she has blood. She denies pelvic pain or cramping at this time. She reports no problems with 3 prior pregnancies. She has no other complaints. Prior similar symptoms: No Recent Illness/Hospitalization: No PFSH <Dr. Lucio Blanco MD - Last Filed: 06/18/24 17:15> PFSH Medical History Early stage of (spontaneous vaginal delivery) History of polyhydramnios History of placenta previa Fracture Anxiety Abnormal Papanicolaou smear of cervix with positive human papilloma virus (HPV) test Home Medications ?Medication ?Instructions ?Recorded ?Last Taken ?Type amoxicillin 500 mg-potassium 1 tab PO TID #21 tabs 06/17/24 Unknown Rx clavulanate 125 mg tablet (Augmentin) Allergy/AdvReac Type Severity Reaction Status Date / Time sulfamethoxazole (From Allergy Rash Verified 06/18/24 06:47 Bactrim) trimethoprim (From Bactrim) Allergy Rash Verified 06/18/24 06:47 Family History Mother Hypertension Grandmother Asthma Hypertension Hyperlipemia Breast cancer Grandfather Diabetes Aunt Seizures Uncle Hyperlipemia Surgical History Hx of appendectomy (~1998) Hx LEEP (loop electrosurgical excision procedure), cervix, (~2014) Social History adopted: No household members: children housing: house number of children: 3 current occupational status: employed current occupation: [employer] current occupational exposures/hazards: No pets and animals: No history of recent travel: No sexually active: Yes Smoking Status: Current every day smoker tobacco type: cigarettes Tobacco: How many years used: 13 second hand exposure: Yes quit status: considering quitting alcohol intake: current alcohol intake frequency: holidays/special occasions only details: Prior to substance use type: does not use well-balanced diet: about half the time caffeine: Yes Type: carbonated beverages Number of servings: 2 eating out: 1-3 times/week during the past year weight has: remained stable what type of physical activity do you participate in: none concepcion/mosque: None seatbelt use: sometimes do you feel safe at home: Yes ROS <Dr. Lucio Blanco MD - Last Filed: 06/18/24 17:15> ROS ED Constitutional Constitutional ED: Denies chills or fever(s) Eyes Eyes: Denies blurry vision or change in vision Cardiovascular Cardiovascular: Denies chest pain or palpitations Respiratory/Chest Respiratory/Chest: Denies cough, dyspnea or dyspnea on exertion Gastrointestinal Gastrointestinal: Reports abdominal pain and nausea Psychiatric Psychiatric: Reports anxiety Hematologic/Lymphatic Hematologic/Lymphatic: Denies easy bleeding or easy bruising EXAM <Dr. Lucio Blanco MD - Last Filed: 06/18/24 17:15> Physical Exam Const Vital Signs: 06/18/24 06:47 06/18/24 09:04 06/18/24 09:41 Temperature 97.5 F L 98.0 F Temperature Source Oral Pulse Rate 111 H 96 95 Respiratory Rate 16 16 17 Blood Pressure 130/85 H 122/83 H 122/83 H Blood Pressure Mean 100 96 96 Pulse Ox 100 100 100 Oxygen Delivery Method Room Air Positive well nourished and well developed Constitutional Narrative: Patient appears upset. General Appearance ED: well developed Extremity normal to inspection and full ROM Neuro oriented x3 and CN's II-XII intact bilaterally Sensorium / Orientation: alert Psych Mood & Affect: anxious Skin no rashes or lesions noted and no wounds <Dr. Donovan Dunbar, DO - Last Filed: 06/18/24 16:37> Physical Exam Const Vital Signs: 06/18/24 06:47 06/18/24 09:04 06/18/24 09:41 Temperature 97.5 F L 98.0 F Temperature Source Oral Pulse Rate 111 H 96 95 Respiratory Rate 16 16 17 Blood Pressure 130/85 H 122/83 H 122/83 H Blood Pressure Mean 100 96 96 Pulse Ox 100 100 100 Oxygen Delivery Method Room Air HEENT Reports moist mucous membranes Neck supple and no JVD GI soft to palpation, non-tender and non-distended Narrative: Pelvic exam showed some dried blood in the vaginal vault. Cervix appeared to be closed. There was no tissue noted. MDM <Dr. Lucio Blanco MD - Last Filed: 06/18/24 17:15> [facility] Narrative Medical decision making narrative: Will need to determine if this is a threatened AB versus incomplete versus complete AB. heart tones were obtained. Review of prior records Laura patient has O+ blood. Case was turned over to the morning physician. Chart to be completed by the morning physician. Lab Data Labs: Laboratory Results - last 24 hr 06/18/24 07:33 HCG, Quant [id number] H Radiography Diagnostic Testing: Clinical Impression(s) from Imaging Studies Obstetrics Ultrasound 06/18/24 07:32 IMPRESSION: Single living intrauterine with an estimated gestational age of 10 weeks 3 days. Small subchorionic hematoma. Small right ovarian corpus luteal cyst. Electronically Signed: Annamarie Pacheco MD at 9:32 EST , <Dr. Donovan Dunbar, DO - Last Filed: 06/18/24 16:37> [facility] Narrative Medical decision making narrative: Will need to determine if this is a threatened AB versus incomplete versus complete AB. heart tones were obtained. Review of prior records indicate patient has O+ blood. Case was turned over to the morning physician. Chart to be completed by the morning physician. Lab Data Attestation: I reviewed the patient's lab results. Lab results narrative: Quantitative hCG was reviewed and was [id number]. Labs: Laboratory Results - last 24 hr 06/18/24 07:33 HCG, Quant [id number] H Radiography Diagnostic Testing: Clinical Impression(s) from Imaging Studies Obstetrics Ultrasound 06/18/24 07:32 IMPRESSION: Single living intrauterine with an estimated gestational age of 10 weeks 3 days. Small subchorionic hematoma. Small right ovarian corpus luteal cyst. Electronically Signed: Annamarie Pacheco MD at 9:32 EST , Pelvic ultrasound was obtained. There is a single live intrauterine . heart rate was 166. There is a gestational age of approximately 10 weeks 3 days. There is a small subchorionic hematoma. There is a small right ovarian corpus luteal cyst. This was interpreted by the radiologist and was also independently reviewed by myself. Treatment and Re-Evaluation Narrative: Patient was advised of her findings. Patient was advised that this is a threatened miscarriage. Patient was instructed to have complete pelvic rest. Patient was instructed no intercourse, no tampons, and no douching. 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 Patient understood and was agreeable with the plan. All questions were answered. Discharge Plan Triage Chief Complaint: Vag Bld, Preg ED Provider: Lucio Blanco Dx/Rx/DC Orders Clinical Impression: Threatened miscarriage in early , , History of loop electrical excision procedure (LEEP), AMA (advanced maternal age) multigravida 35+, Smoking (tobacco) complicating , unspecified trimester, Subchorionic hemorrhage in first trimester Instructions: Miscarriage Threatened Prescriptions: No Action amoxicillin-pot clavulanate [Augmentin] 500-125 mg tablet 1 tab PO TID Qty: 21 0RF Primary Care Provider: Evelia Askew Referrals: Evelia Askew MD [Primary Care Provider] - 2 Days Print Language: Kiswahili Disposition Disposition: Home, Self Care Discharge Date/Time: 06/18/24 09:42
--- NOTE | 2024-06-18 07:32 | US_ITS ---
HISTORY: Threatened miscarriage. TECHNIQUE: Transvaginal pelvic ultrasound was performed. 76 images. COMPARISON: 05/19/2024. FINDINGS: UTERUS: 12.6 x 7.4 x 11.5 cm. Closed cervix with nabothian cysts seen. RIGHT OVARY: 1.8 x 2 x 2.7 cm with vascular flow demonstrated. 1.5 x 1.7 x 1.8 cm corpus luteal cyst, previously 1.5 x 1.7 x 1.7 cm. LEFT OVARY: Not well-visualized. FREE FLUID: None. INTRAUTERINE GESTATIONAL SAC: Single. Mean sac diameter 4.5 cm corresponding to 10 weeks 0 days. YOLK SAC: 5 mm. POLE: Chrisman-rump length 3.8 cm corresponding to 10 weeks 3 days. ESTIMATED DELIVERY DATE: 01/12/2025. HEART MOTION: 166 bpm. SUBCHORIONIC HEMORRHAGE: 1.2 x 1.3 x 1.3 cm . US/Transvaginal w/Preg US IMPRESSION: Single living intrauterine with an estimated gestational age of 10 weeks 3 days. Small subchorionic hematoma. Small right ovarian corpus luteal cyst. Electronically Signed: Annamarie Pacheco MD at 9:32 EST ,
[2024-06-18 08:29] LABS: hCG Titer Quant., Serum 55754 mIU/mL (1-3)
[2024-06-18 09:04] VITALS: BP 122/83; PULSE 96; RESP 16; O2SAT 100
[2024-06-18 09:41] VITALS: BP 122/83; PULSE 95; RESP 17; TEMP 36.7; O2SAT 100
== END 2024-06-18 09:42 | disposition home or self-care (01) ==
PROVIDERS: Emergency Medicine; Emergency Provider Emergency Medicine; PCP Obstetrics & Gynecology; Visit Provider Emergency Medicine
DX: O20.0 Threatened abortion (principal); O99.331 Smoking (tobacco) complicating pregnancy, first trimester; O09.521 Supervision of elderly multigravida, first trimester; F17.210 Nicotine dependence, cigarettes, uncomplicated; Z3A.10 10 weeks gestation of pregnancy; O20.8 Other hemorrhage in early pregnancy; Z90.49 Acquired absence of other specified parts of digestive tract; Z98.890 Other specified postprocedural states

== ENCOUNTER → 2024-06-20 | Outpatient (CLI) | payer BC, SELFPAY ==
[2024-06-20 17:21] LABS: Absolute Lymphocyte Count 2.63 X10^3/uL (0.83-4.51); Absolute Neutrophil Count 7.9 X10^3/uL (2.0-7.7); Basophil# 0.03 X10^3/uL; Basophil% 0.3 % (0-1); Eosinophil# 0.07 X10^3/uL; Eosinophils% 0.6 % (0-5); Hematocrit 35.8 % (37-47); Hemoglobin 12.2 g/dL (12.0-15.0); Lymphocyte # 2.63 X10^3/ul (0.83-4.51); Lymphocyte % 22.9 % (19-41); Mean Corp Hgb Conc 34.1 g/dL (32-36); Mean Corpuscular Hgb 30.7 pg (27.0-32.0); Mean Corpuscular Volume 90.2 fL (81-99); Mean Platelet Vol. 9.9 fl (6.2-12.0); Monocyte# 0.84 X10^3/uL; Monocyte% 7.3 % (0-10); NRBC Flagged by Analyzer 0 % (0-5); Neutrophil # 7.87 X10^3/uL (2.7-7.7); Neutrophil % 68.5 % (47-70); Platelet Count 358 K/mm3 (150-450); RBC Distribution Width CV 12.1 % (11.6-14.6); Red Blood Count 3.97 M/mm3 (4.2-5.4); White Blood Count 11.5 K/mm3 (4.4-11.0)
[2024-06-20 19:17] LABS: Hepatitis B Surface Antigen Non-Reactive (Nonreactive); Hepatitis C Antibody Non-Reactive (Nonreactive); Rubella IgG Reactive (Nonreactive); Syphilis Antibodies Non-reactive
[2024-06-21 22:10] LABS: HIV - WCH Non-Reactive (Nonreactive)
== END | disposition home or self-care (01) ==
LOC: BWCLAB 14:15
PROVIDERS: PCP Obstetrics & Gynecology; Referring Provider Obstetrics & Gynecology; Visit Provider Obstetrics & Gynecology
DX: O09.521 Supervision of elderly multigravida, first trimester (principal); Z3A.00 Weeks of gestation of pregnancy not specified

== ENCOUNTER → 2024-08-04 | Outpatient (CLI) | payer SELFPAY | END | disposition home or self-care (01) | PROVIDERS: PCP Obstetrics & Gynecology; Referring Provider Obstetrics & Gynecology; Visit Provider Obstetrics & Gynecology | DX: O23.41 Unspecified infection of urinary tract in pregnancy, first trimester (principal); Z3A.00 Weeks of gestation of pregnancy not specified | CPT/HCPCS: 87077; 87086; 87088; 87186 ==

== ENCOUNTER → 2024-09-20 | Outpatient (CLI) | payer BC, SELFPAY | END | disposition home or self-care (01) | LOC: LABSPEC 14:10 | PROVIDERS: PCP Obstetrics & Gynecology; Referring Provider Obstetrics & Gynecology; Visit Provider Obstetrics & Gynecology | DX: R30.0 Dysuria (principal) | CPT/HCPCS: 87077; 87086; 87088; 87186 ==

== ENCOUNTER → 2024-10-18 | Outpatient (CLI) | payer BC, SELFPAY | END | disposition home or self-care (01) | LOC: BWCLAB 09:46 | PROVIDERS: PCP Obstetrics & Gynecology; Referring Provider Registered Nurse; Visit Provider Registered Nurse | DX: Z00.00 Encounter for general adult medical examination without abnormal findings (principal) ==

== ENCOUNTER 2024-10-19 16:54 | Inpatient (IN) | payer BC, SELFPAY ==
[2024-10-19] VITALS (20 sets, daily range): BP systolic 91–119; BP diastolic 49–69; PULSE 72–112; RESP 13–20; TEMP 36.4–37.4; O2SAT 94–100; BMI 30.2
--- NOTE | 2024-10-19 14:18 | US_ITS ---
PROCEDURE: OB LIMITED (NO BIOMETRICS) 10/19/2024 REASON FOR EXAM: UNABLE TO OBTAIN FHR. TECHNIQUE: High resolution obstetric ultrasound performed using a 2D transducer. Standard views obtained, including biometry, anatomy survey, and Doppler studies. COMPARISON: Prior study dated June 18, 2024. FINDINGS Number: 1 Position: Breech Placental Position: Anterior and not low-lying. Placental Abnormalities: None ESTIMATED GESTATIONAL AGE: Baseline: 28 weeks and 1 day ESTIMATED DATE OF DELIVERY: Baseline: January 10, 2025 BIOPHYSICAL ASSESSMENT: Amniotic Fluid Volume: Within normal limits. Cardiac Motion: Not detected. (Average) US/OB Limited (No Biometrics) IMPRESSION: demise. Reading Location: [facility]
--- NOTE | 2024-10-19 14:54 | OB.TRI.HP_ITS ---
HPI - General HPI Narrative EVERT LIANG, is a 34 y/o @ 28 weeks 1 day who presents to L&D with cramping. The nurse who did her ffn and checked her cervix (per my request) reported that her cervix is 1 cm dilated but she can not find heart tones. Bedside scan confirmed a demise as well as a formal scan that was performed with radiology at bedside as a second opinion. The placenta appears intact, fluid normal, and growth appropriate for gestational age. She was just seen in the office yesterday and movement was noted as well as heart tones. She denies any trauma, drug use, fevers, chills, nausea, vomiting, or diarrhea. She has had 3 healthy pregnancies and vaginal births. Maternal Data Information FELICIANO Calculator Estimated Delivery Date Method Current WG Current Estimate 01/10/25 Ultrasound #1 28w 1d Other Estimates 12/27/24 LMP (Certain) 30w 1d PFSH PFSH Medical History Early stage of (spontaneous vaginal delivery) History of polyhydramnios History of placenta previa Fracture Anxiety Abnormal Papanicolaou smear of cervix with positive human papilloma virus (HPV) test Home Medications ?Medication ?Instructions ?Recorded ?Last Taken ?Type nitrofurantoin 100 mg PO QDAY #90 caps 09/06 10/30 Unknown Rx monohydrate/macrocrystals 100 mg capsule (Macrobid) Allergy/AdvReac Type Severity Reaction Status Date / Time sulfamethoxazole (From Allergy Rash Verified 10/19/24 14:03 Bactrim) trimethoprim (From Bactrim) Allergy Rash Verified 10/19/24 14:03 Family History Mother Hypertension Grandmother Asthma Hypertension Hyperlipemia Breast cancer Grandfather Diabetes Aunt Seizures Uncle Hyperlipemia Surgical History Hx of appendectomy (~1998) Hx LEEP (loop electrosurgical excision procedure), cervix, (~2014) Social History adopted: No household members: children housing: house number of children: 3 current occupational status: employed 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 [employer] current occupational exposures/hazards: No pets and animals: No history of recent travel: No sexually active: Yes Smoking Status: Current every day smoker tobacco type: cigarettes Tobacco: How many years used: 13 second hand exposure: Yes quit status: considering quitting alcohol intake: current alcohol intake frequency: holidays/special occasions only details: Prior to substance use type: does not use well-balanced diet: about half the time caffeine: Yes Type: carbonated beverages Number of servings: 2 eating out: 1-3 times/week during the past year weight has: remained stable what type of physical activity do you participate in: none concepcion/christianity: None seatbelt use: sometimes do you feel safe at home: Yes History 4 Elective abortions Hx Para 3 Spontaneous abortions Hx # Term Pregnancies 3 Ectopic pregnancies Hx # Pregnancies Multiple births # of living children 3 Past Pregnancies Del. Date Name GA/Weeks Outcome Route Bth Weight Infant Gen Labor Lgth Anesthesia Del [facility] Provider FOB 04/06/14 Godfrey 40 live - full term 7lbs 13oz Male epidural [facility] Edwige 07/22/18 [facility] 40 live - full term 7lbs 5oz Male epidural [facility] Dr. Evelia Askew 07/08/22 Scarlet 37 live - full term 5lbs 6oz Female epidural [facility] Francis Nunezyemi Delivery Date: 04/06/14 Last Updated by: Evelia Askew MD child has mild CP Delivery Date: 07/22/18 Last Updated by: Armida Rosales Polyhydramnios Visit Details Expected Delivery Route/Plan Labor Preferences- CB/BF classes: no labor support person: Fabiano labor intervention preferences: [] pain management options preferred:epidural cut cord/dad catch: cord : yes PP control planned: may want depo immediate pp discussed possible routes of delivery and associated risks: [] special requests: [] Plans Covid status: [] Flu vaccine: [] Tdap vaccine: [] Rhogam: na LARC form signed: yes Problem list reviewed and updated with the most current plan of care details and appropriate orders placed. Relevant counseling for the gestational age provided. Continue routine care and follow up unless otherwise noted in visit notes/problem list details OB Flowsheet Initial Weight: Not Recorded Date -?-?-?-?-?-?-?-?-?-?-?-?- EGA Weight BP Urine Prot -?-?-?-?-?-?-?-?-?-?-?-?- Glucose FHR FuHt Pres Dilation -?-?-?-?-?-?-?-?-?-?-?-?- Effaced St Visit Note 06/02/24 -?-?-?-?-?-?-?-?-?-?-?-?- 8w 2d 152 lb 6 oz 107/72 -?-?-?-?-?-?-?-?-?-?-?-?- 165 -?-?-?-?-?-?-?-?-?-?-?-?- SM- CRL SM- CRL 1.67cm cons with pre ivous US date 06/20/24 -?-?-?-?-?-?-?-?-?-?-?-?- 10w 6d 153 lb 6 oz 122/77 Nega tive -?-?-?-?-?-?-?-?-?-?-?-?- Negative 155 -?-?-?-?-?-?-?-?-?-?-?-?- DELFIN pt was in ER over the weekend for bleeding. She was found to have a subchorionic hemorrhage and viable fetus. She is not actively bleeding today. bedside scan still shows a small subchorionic hemorrhage by the cervix. pelvic rest encouraged. Needs new ob labs and NIPT today. 07/01/24 -?-?-?-?-?-?-?-?-?-?-?-?- 12w 3d 157 lb 125/80 Negative -?-?-?-?-?-?-?-?-?-?-?-?- Negative 148 -?-?-?-?-?-?-?-?-?-?-?-?- KW- continued br own spotting. UTI at new OB will need culture next visit. active fetus on US. anatomy US scheduled. 08/04/24 -?-?-?-?-?-?-?-?-?-?-?-?- 17w 2d 165 lb 2 oz 119/74 Nega tive -?-?-?-?-?-?-?-?-?-?-?-?- Negative 140 -?-?-?-?-?-?-?-?-?-?-?-?- JV- cl at 16 wee ks was 4.9 cm. no complaints. plan for 20 week follow up. 09/20/24 -?-?-?-?-?-?-?-?-?-?-?-?- 24w 0d 173 lb 6 oz 114/79 Nega tive -?-?-?--?-?-?-?-?-?-?-?-?- Negative 140 24 Cephalic -?-?-?-?-?-?-?-?-?-?-?-?- JV- no lof, vagi nal bleeding, or cramping. does have burning with urination. UA very suspicious for UTI. starting macrobid bid then daily for frequen uti's. 10/18/24 -?-?-?-?-?-?-?-?-?-?-?-?- 28w 0d 178 lb 112/72 Negative -?-?-?-?-?-?-?-?-?-?-?-?- Negative 133 28 -?-?-?-?-?-?-?-?-?-?-?-?- MH-No VB, lof. G ood Fm. larc. 28 wk labs pending. No antibiotic X 1 week. Didn't have Rx. 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 ROS Constitutional Constitutional: Reports systems reviewed and no addt'l complaints, except as documented Gastrointestinal Gastrointestinal: Denies bloating, constipation, cramping, diarrhea, nausea or vomiting Genitourinary Genitourinary: Reports other Details: Denies vaginal odor, vaginal bleeding, or vaginal discharge ; Denies difficulty urinating or flank pain Physical Exam HEENT normocephalic Resp normal respiratory effort and normal air movement no CVA tenderness Extremity normal to inspection General Extremity: edema bilateral (trace ) Assessment & Plan (1) demise, greater than 22 weeks, antepartum: PLAN: position is breech - we discussed IOL for demise vs section. She is deciding now grievance counseling offered. 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: COMMENT: plan valtrex at 34-36 weeks (6) Smoking (tobacco) complicating , unspecified trimester: COMMENT: Trying to cut back since +HPT; down to 6 cig per day (7) AMA (advanced maternal age) multigravida 35+: QUALIFIERS: Trimester: third trimester Qualified Code(s): O09.523 - Supervision of elderly multigravida, third trimester COMMENT: genetic, counseling, plan 36 week growth US delivery by 40 weeks (8) Supervision of high-risk : QUALIFIERS: Trimester: third trimester Qualified Code(s): O09.93 - Supervision of high risk , unspecified, third trimester COMMENT: [id number], FELICIANO 01/10/25, PC: Eron Donahue, and KOJO rAriaga ([place]) (9) : QUALIFIERS: Weeks of gestation: 28 weeks Qualified Code(s): Z3A.28 - 28 weeks gestation of COMMENT: NIPT low risk (10) History of loop electrical excision procedure (LEEP): COMMENT: 2014 Paps negative since, serial cervical lengths Charges/Coding Multi Select Codes Urinary/Genital Urinary/Genital CPT Codes: 26257-60 non-stress test Interp
[2024-10-19] MEDS: 0.9% Saline Lock 10 ML Syringe IV (16:30)
--- NOTE | 2024-10-19 16:58 | PCM.HP.OB ---
HPI - General General Date of Admission: 10/19/24 HPI Narrative EVERT LIANG, is a 34 y/o @ 28 weeks 1 day who presents to L&D for management of demise. The position is breech and the patient was counseled on a version vs a breech delivery vs primary section and she has decided to have a section. Maternal Data Information FELICIANO Calculator Estimated Delivery Date Method Current WG Current Estimate 01/10/25 Ultrasound #1 28w 1d Other Estimates 12/27/24 LMP (Certain) 30w 1d PFSH PFS Medical History Early stage of (spontaneous vaginal delivery) History of polyhydramnios History of placenta previa Fracture Anxiety Abnormal Papanicolaou smear of cervix with positive human papilloma virus (HPV) test Home Medications ?Medication ?Instructions ?Recorded ?Last Taken ?Type nitrofurantoin 100 mg PO QDAY UTI #90 caps 09/20/24 Unknown Rx monohydrate/macrocrystals 100 mg capsule (Macrobid) vit no.95-ferrous 1 tab PO DAILY 10/19/24 10/18/24 History fumarate 28 mg-folic acid 800 mcg tablet () Allergy/AdvReac Type Severity Reaction Status Date / Time sulfamethoxazole (From Allergy Rash Verified 10/19/24 14:03 Bactrim) trimethoprim (From Bactrim) Allergy Rash Verified 10/19/24 14:03 Family History Mother Hypertension Grandmother Asthma Hypertension Hyperlipemia Breast cancer Grandfather Diabetes Aunt Seizures Uncle Hyperlipemia Surgical History Hx of appendectomy (~1998) Hx LEEP (loop electrosurgical excision procedure), cervix, (~2014) Social History adopted: No household members: children housing: house number of children: 3 current occupational status: employed 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[employer] current occupational exposures/hazards: No pets and animals: No history of recent travel: No sexually active: Yes Smoking Status: Current every day smoker tobacco type: cigarettes Tobacco: How many years used: 13 second hand exposure: Yes quit status: considering quitting alcohol intake: current alcohol intake frequency: holidays/special occasions only details: Prior to substance use type: does not use well-balanced diet: about half the time caffeine: Yes Type: carbonated beverages Number of servings: 2 eating out: 1-3 times/week during the past year weight has: remained stable what type of physical activity do you participate in: none concepcion/spiritism: None seatbelt use: sometimes do you feel safe at home: Yes History 4 Elective abortions Hx Para 3 Spontaneous abortions Hx # Term Pregnancies 3 Ectopic pregnancies Hx # Pregnancies Multiple births # of living children 3 Past Pregnancies Del. Date Name GA/Weeks Outcome Route Bth Weight Infant Gen Labor Lgth Anesthesia Del Locatn Provider FOB 04/06/14 Godfrey 40 live - full term 7lbs 13oz Male epidural [facility] JVandevelde 07/22/[address] [facility] 40 live - full term 7lbs 5oz Male epidural [facility] Dr. Evelia Askew 07/08/22 Scarlet 37 live - full term 5lbs 6oz Female epidural [facility] Francis Eckert Delivery Date: 04/06/14 Last Updated by: Evelia Askew MD child has mild CP Delivery Date: 07/22/18 Last Updated by: Armida Rosales Polyhydramnios Visit Details Expected Delivery Route/Plan Labor Preferences- CB/BF classes: no labor support person: Fabiano labor intervention preferences: [] pain management options preferred:epidural cut cord/dad catch: cord : yes PP control planned: may want depo immediate pp discussed possible routes of delivery and associated risks: [] special requests: [] Plans Covid status: [] Flu vaccine: [] Tdap vaccine: [] Rhogam: na LARC form signed: yes Problem list reviewed and updated with the most current plan of care details and appropriate orders placed. Relevant counseling for the gestational age provided. Continue routine care and follow up unless otherwise noted in visit notes/problem list details OB Flowsheet Initial Weight: Not Recorded Date <del>?</del> EGA Weight BP Urine Prot <del>?</del> Glucose FHR FuHt Pres Dilation <del>?</del> Effaced St Visit Note 06/02/24 <del>?</del> 8w 2d 152 lb 6 oz 107/72 <del>?</del> 165 <del>?</del> SM- CRL SM- CRL 1.67cm cons with preivous US date 06/20/24 <del>?</del> 10w 6d 153 lb 6 oz 122/77 Negative <del>?</del> Negative 155 <del>?</del> JV- pt was in ER over the weekend for bleeding. She was found to have a subchorionic hemorrhage and viable fetus. She is not actively bleeding today. bedside scan still shows a small subchorionic hemorrhage by the cervix. pelvic rest encouraged. Needs new ob labs and NIPT today. 07/01/24 <del>?</del> 12w 3d 157 lb 125/80 Negative <del>?</del> Negative 148 <del>?</del> KW- continued brown spotting. UTI at new OB will need culture next visit. active fetus on US. anatomy US scheduled. 08/04/24 <del>?</del> 17w 2d 165 lb 2 oz 119/74 Negative <del>?</del> Negative 140 <del>?</del> JV- cl at 16 weeks was 4.9 cm. no complaints. plan for 20 week follow up. 09/20/24 <del>?</del> 24w 0d 173 lb 6 oz 114/79 Negative <del>?</del> Negative 140 24 Cephalic <del>?</del> JV- no lof, vaginal bleeding, or cramping. does have burning with urination. UA very suspicious for UTI. starting macrobid bid then daily for frequen uti's. 10/18/24 <del>?</del> 28w 0d 178 lb 112/72 Negative <del>?</del> Negative 133 28 <del>?</del> MH-No VB, lof. Good Fm. larc. 28 wk labs pending. No antibiotic X 1 week. Didn't have Rx. 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 ROS Constitutional Constitutional: Reports systems reviewed and no addt'l complaints, except as documented Gastrointestinal Gastrointestinal: Denies bloating, constipation, cramping, diarrhea, nausea or vomiting Genitourinary Genitourinary: Reports other Details: Denies vaginal odor, vaginal bleeding, or vaginal discharge ; Denies difficulty urinating or flank pain Vital Signs Vital Signs Vital Signs: 10/19/24 13:43 10/19/24 13:43 10/19/24 13:48 Pulse Rate 112 H 99 Blood Pressure BP Systolic BP Diastolic Pulse Ox 98 10/19/24 13:48 10/19/24 13:53 10/19/24 13:53 Pulse Rate 97 Blood Pressure BP Systolic BP Diastolic Pulse Ox 100 99 10/19/24 13:58 10/19/24 13:58 10/19/24 14:03 Pulse Rate 100 98 Blood Pressure BP Systolic BP Diastolic Pulse Ox 98 10/19/24 14:03 10/19/24 14:08 10/19/24 14:08 Pulse Rate 112 H Blood Pressure BP Systolic BP Diastolic Pulse Ox 100 99 10/19/24 14:09 10/19/24 14:09 10/19/24 14:13 Pulse Rate 111 H 97 Blood Pressure BP Systolic BP Diastolic Pulse Ox 94 10/19/24 14:13 10/19/24 16:12 10/19/24 16:12 Pulse Rate 110 H Blood Pressure 119/69 BP Systolic 119 BP Diastolic 69 Pulse Ox 100 10/19/24 16:12 Pulse Rate Blood Pressure BP Systolic BP Diastolic Pulse Ox 94 Weight Weight: 176 lb 6 oz Body Mass Index (BMI) 30.2 Physical Exam HEENT normocephalic Resp normal respiratory effort and normal air movement no CVA tenderness Extremity normal to inspection General Extremity: edema bilateral (trace ) Labs Labs Labs: Blood Type O POSITIVE Antibody Screen NEGATIVE Hct 35.8 % (37-47) L Hgb 12.2 g/dL (12.0-15.0) Pap Smear Negative Obstetrics Ultrasound Syphilis Total Ab Non-reactive Rubella IgG Antibody Reactive (Nonreactive) Hep Bs Antigen Non-Reactive (Nonreactive) Hepatitis C Antibody Non-Reactive (Nonreactive) Chlamydia DNA (CHELSI) Negative (Negative) N.gonorrhoeae DNA (CHELSI) Negative (Negative) HIV 1&2 Antibody Non-Reactive (Nonreactive) Glucose 1 Hr 50 gm 115 mg/dL (70-140) Rhogam given: No Assessment & Plan (1) demise, greater than 22 weeks, antepartum: PLAN: position is breech - we discussed IOL for demise vs section. Risks of version were discussed as mild discomfort to moderate pain and failure to move the head to the vertex presentation. She states that she had to have this done in a prior and did not like how it felt. We discussed that IOL and delivery of a breech baby could result in head entrapment and use of forceps that could lead to a cervical laceration or decapitation of the baby. She does not want to risk this as she would like the opportunity to hold the baby,. Risks of were discussed as risks of bleeding , infection, and damage to surrounding organs, pain in the future due to scar tissue, and longer recovery time than a vaginal delivery. grievance counseling offered. 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: COMMENT: plan valtrex at 34-36 weeks (6) Smoking (tobacco) complicating , unspecified trimester: COMMENT: Trying to cut back since +HPT; down to 6 cig per day (7) AMA (advanced maternal age) multigravida 35+: QUALIFIERS: Trimester: third trimester Qualified Code(s): O09.523 - Supervision of elderly multigravida, third trimester COMMENT: genetic, counseling, plan 36 week growth US delivery by 40 weeks (8) Supervision of high-risk : QUALIFIERS: Trimester: third trimester Qualified Code(s): O09.93 - Supervision of high risk , unspecified, third trimester COMMENT: [id number], FELICIANO 01/10/25, PC: Eron Donahue, and KOJO Arriaga ([place]) (9) : QUALIFIERS: Weeks of gestation: 28 weeks Qualified Code(s): Z3A.28 - 28 weeks gestation of COMMENT: NIPT low risk (10) History of loop electrical excision procedure (LEEP): COMMENT: 2014 Paps negative since, serial cervical lengths
[2024-10-19] MEDS: Lactated Ringers 1,000 ML 999 ML IV (17:00)
--- NOTE | 2024-10-19 17:03 | PCM.DC ---
Discharge Instructions Diet Discharge Diet: No restrictions DC O2, CPAP, BIPAP needs Home O2 Discharge instructions: No Dressing / Incision Discharge Activity: May Not Drive (for 2 weeks or while taking narcotic pain medications.), May Shower and May Take a Tub Bath (in 7 days.) May resume sexual activity in: 4-6 weeks Weight Bearing Status: Full weight bearing Lifting Restrictions: 20 pounds Dressing / Incision Call your doctor if your incision/area has: Continuous Slow Oozing, Sudden Increased Bleeding, Increased Pain/ Swelling, Increased Redness and Foul Smelling Discharge Call your doctor if you observe: Fever of 101 or Higher and Using more than 1 pad per hour Suture Line Care: Avoid Pulling/Pushing and Avoid Pinching/Bending Cleanse incision/area with: Soap & Water and Keep Dressing Clean & Dry Follow Up Care Please Follow Up With: Anny Valdez DO When: Call [phone] to make an appointment for an incision check in 1-2 weeks. Test Results: Test results from this visit will be discussed in further detail at your follow-up appointment, if applicable. Discharge Plan Admission Admit Date/Time: 10/19/24 16:54 Primary Reason for Your Visit: section Attending Provider: Anny Valdez Primary Care Provider: Evelia Askew Discharge Orders/Prescriptions Prescriptions: New ibuprofen 800 mg tablet 800 mg PO Q8H PRN (Reason: pain) Qty: 30 0RF oxycodone-acetaminophen [Percocet] 5-325 mg tablet 1 tab PO Q4H PRN (Reason: pain) 7 Days Qty: 20 0RF No Action nitrofurantoin monohyd/m-cryst [Macrobid] 100 mg capsule 100 mg PO QDAY Qty: 90 3RF Rx Instructions: must administer with a meal/food. start taking after completion of 1 week twice a day course PNV cmb#95-ferrous fumarate-FA [] 28 mg iron- 800 mcg tablet 1 tab PO DAILY Referrals / Follow Up: Evelia Askew MD [Primary Care Provider] - Disposition Disposition (needs filled in before D/C Order can be placed): Home, Self Care
[2024-10-19] MEDS: Acetaminophen 500 MG Tablet 1000 MG PO ×2 (17:13→23:51)
[2024-10-19 17:26] LABS: Absolute Lymphocyte Count 1.96 X10^3/uL (0.83-4.51); Absolute Neutrophil Count 14.3 X10^3/uL (2.0-7.7); Basophil# 0.04 X10^3/uL; Basophil% 0.2 % (0-1); Eosinophil# 0.03 X10^3/uL; Eosinophils% 0.2 % (0-5); Hematocrit 30.1 % (37-47); Hemoglobin 10.2 g/dL (12.0-15.0); Lymphocyte # 1.96 X10^3/ul (0.83-4.51); Lymphocyte % 11.1 % (19-41); Mean Corp Hgb Conc 33.9 g/dL (32-36); Mean Corpuscular Hgb 31.8 pg (27.0-32.0); Mean Corpuscular Volume 93.8 fL (81-99); Monocyte# 1.15 X10^3/uL; Monocyte% 6.5 % (0-10); NRBC Flagged by Analyzer 0 % (0-5); Neutrophil # 14.32 X10^3/uL (2.7-7.7); Neutrophil % 81.5 % (47-70); Platelet Count 226 K/mm3 (150-450); RBC Distribution Width SD 44.7 fl (35.1-43.9); Red Blood Count 3.21 M/mm3 (4.2-5.4); White Blood Count 17.6 K/mm3 (4.4-11.0)
[2024-10-19] MEDS: Sodium Citrate/Citric Acid 30 ML UDC PO (17:46)
[2024-10-19 17:50] LABS: Mucous, Urine 0 SEEN /hpf (<or=2+); Red Blood Cells-Urine 0 SEEN /hpf (0-5)
[2024-10-19] MEDS: Cefazolin 2 GM in 0.9% Normal Saline (100mL Bag) 100 ML IV (17:51)
[2024-10-19 18:05] LABS: Partial Thromboplast Time 28.7 Seconds (24.1-36.2); Prothrombin Time (Protime)PT. 13.4 SECONDS (11.7-14.9)
[2024-10-19 18:06] LABS: Fibrinogen 521 mg/dl (203-444)
[2024-10-19] MEDS: Azithromycin 500 MG in 0.9% Normal Saline (250mL Bag) 250 ML 255 MG IV (18:12)
[2024-10-19 18:47] LABS: ALB/GLOB Ratio 1.1 RATIO (0.9-2.4); AST(SGOT) 20 U/L (<=31); Alanine Aminotransfer ALT/SGPT 11 U/L (<=34); Albumin, Serum 3.4 g/dL (3.5-5.0); Alkaline Phosphatase 146 U/L (35-104); Anion Gap 12 (5-15); BUN 7 mg/dL (4-19); BUN/Creat Ratio 12.3 RATIO (10-20); Calcium,Total 8.5 mg/dL (7.6-11.0); Carbon Dioxide 19.5 mmol/L (21.0-32.0); Chloride 105 mmol/L (98-108); Creatinine, Serum 0.55 mg/dL (0.70-1.20); EST Glomerular Filtration Rate 122 (>60); Globulin 3.2 g/dL (2.2-4.2); Glucose 83 mg/dL (70-99); Potassium 3.6 mmol/L (3.3-5.1); Protein, Total 6.6 g/dL (5.9-8.4); Sodium Level 136 mmol/L (133-145); Syphilis Antibodies Nonreactive (Nonreactive); Thyroid Stim Hormone (TSH) 0.201 uIU/mL (0.300-4.200); Total Bilirubin < 0.15 mg/dL (0.00-1.30)
[2024-10-19 18:48] LABS: Color, Urine Straw (Yellow); Glucose, Dipstick Normal (Normal); Ketone-Dipstick 15 mg/dl (Negative); Leukocyte Esterase-Dipstick 500 /ul (Negative); Nitrite-Dipstick Positive (Negative); Occult Blood-Urine 150 /ul (Negative); Protein-Dipstick 15 mg/dl (Negative); Urine Bilirubin Dipstick Negative (Negative); Urine Clarity Cloudy (Clear); Urine Urobilinogen Normal (Normal); Urine pH 6.5 (5.0 - 8.0)
[2024-10-19 18:52] LABS: Amphetamine Urine NEGATIVE (<1000 ng/mL); Barbiturate Urine NEGATIVE (< 200 ng/mL); Benzodiazepine Urine NEGATIVE (< 200 ng/mL); Cocaine Urine NEGATIVE (< 300 ng/mL); Methadone Urine NEGATIVE (< 300 ng/mL); Opiates Urine NEGATIVE (< 300 ng/mL); PCP Urine NEGATIVE (< 25 ng/mL); THC Urine NEGATIVE (< 50 ng/mL)
--- NOTE | 2024-10-19 18:58 | OP.PCM_ITS ---
Assessment & Plan (1) demise, greater than 22 weeks, antepartum: (2) Contraception management: QUALIFIERS: Contraceptive encounter type: other general counseling and advice Qualified Code(s): Z30.09 - Encounter for other general counseling and advice on contraception COMMENT: Wants tubal and considering depo immediate pp until tubal can be scheduled. 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: COMMENT: plan valtrex at 34-36 weeks (7) Smoking (tobacco) complicating , unspecified trimester: COMMENT: Trying to cut back since +HPT; down to 6 cig per day (8) AMA (advanced maternal age) multigravida 35+: QUALIFIERS: Trimester: third trimester Qualified Code(s): O09.523 - Supervision of elderly multigravida, third trimester COMMENT: genetic, counseling, plan 36 week growth US delivery by 40 weeks (9) Supervision of high-risk : QUALIFIERS: Trimester: third trimester Qualified Code(s): O09.93 - Supervision of high risk , unspecified, third trimester COMMENT: [id number], FELICIANO 01/10/25, PC: Eron Donahue, and KOJO ArriagaIrving) (10) : QUALIFIERS: Weeks of gestation: 28 weeks Qualified Code(s): Z3A.28 - 28 weeks gestation of COMMENT: NIPT low risk (11) History of loop electrical excision procedure (LEEP): COMMENT: 2014 Paps negative since, serial cervical lengths Maternal Data Information FELICIANO Calculator Estimated Delivery Date Method Current WG Current Estimate 01/10/25 Ultrasound #1 28w 1d Other Estimates 12/27/24 LMP (Certain) 30w 1d Gestational age: 28 weeks 1 day Operative Report (OB) Details Procedure Type: low transverse Date of Procedure: 10/19/24 Procedure Start Time: 18:17 Procedure Stop Time: 18:55 Time of Delivery: 18:21 Pre-Operative Diagnosis: Breech (SROM) and Other ( demise ) Other Pre- Operative diagnosis: none Post-Operative Diagnosis: Same as Pre-operative diagnosis Classification: TAYLOR Type of Anesthesia: Spinal Antibiotic Given: Ancef 2 grams IV x1 and Zithromax 500 mg/5 mL X1 Drain: Mathur to straight drain Estimated Blood Loss: 500cc Findings Description of surgery: The patient was brought to the operating room, spinal anesthesia was found to be adequate. She was prepped and draped in the normal sterile fashion and was placed in a dorsal supine position with a leftward tilt. Pfannenstiel skin incision was made with a scalpel and carried through to the underlying layers. The fascia was nicked in the midline and extended laterally using Herrera scissors. The anterior aspect of the fascia was grasped with Carolynn clamps and the underlying rectus muscles dissected off using the Metzenbaum scissors. The rectus muscles were in the midline. Peritoneum was entered sharply. The uterus was identified and a bladder blade was inserted into the abdomen. Bladder flap was created off the uterus using Metzenbaum scissors. A transverse incision was made with a scalpel and extended laterally manually. The membranes ruptured spontaneously and a strong putrid smell emitted from the uterus. The infant's feet were first to present and were gently grasped and guided out of the uterine incision. The legs and torso followed. The anterior shoulder was carefully swept across the chest. The infant was rotated to the opposite side and opposite arm was swept down and over the chest. The head was delivered with the help of my retirement assistant using fundal pressure and also a finger in the mouth to flex the head. A tight nuchal cord was noted and meconium found expelling from the rectum. The infant was handed off to the awaiting nurse. The Placenta was delivered manually without difficulty but was noted to be intact and sent for pathology analysis. The uterus was exteriorized and cleared of all clots and debris. Incision was closed with an 0 Vicryl suture in a running locked fashion. Second layer of 1-0 monocryl suture was used in imbricating manner to create excellent closure and hemostasis. The uterus was returned to the abdomen. The gutters were cleared of all clots and debris. Irrigation was performed. The peritoneum was closed in a pursestring pattern using a 3-0 Vicryl suture. This muscle was reapproximated with a 3-0 Vicryl. The fascia was closed with a stratafix suture. Subcutaneous tissue layer was irrigated then closed using a plain gut suture. The skin was closed with a 4-0 Monocryl subcuticular stitch. The patient tolerated the procedure well sponge lap and needle counts were correct at each tissue closure plane and the patient is now being brought to the recovery room in stable condition. Surgical findings: foul smelling amniotic fluid, demised female infant without skin break down or m aceration. tight nuchal cord, normal placenta. 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
[2024-10-19 19:08] LABS: White Blood Cells >100 SEEN /hpf (0-5)
[2024-10-19 19:09] LABS: Bacteria 4+ /hpf (None Seen); Squamous Epithelial Cells - UA 0-5 SEEN /hpf (5-10); Transitional Epithelial - Ur 0-5 SEEN /hpf (0-5)
--- NOTE | 2024-10-19 19:32 | PLAC_PTH ---
PATIENT: EVERT LIANG LOC: [facility] U#:[id number] AGE/SX: 34/F ROOM: WP018 RE10/19/[address]: Dr. Anny Valdez DO : 1990 BED: 1 DIS: 10/21/2024 SPEC #: [id number] RECD: 10/20/24 21:46 STATUS: GUME AIDAN #: [id number] BERNARDO: 10/19/24 19:[address]: Anny Valdez DEPT: SURGICAL PATHOLOGY RECD BY: Barney Hernandez ENTERED: 10/20/24 09:09 SP TYPE: PLACENTA OTHR DR: Dr. Evelia Askew MD Tissues: A - Placenta, NOS Procedures: Surgery Specimen Level V HEADER OPERATION: Primary section PRE-OP DIAGNOSIS: demise TISSUE SUBMITTED: A- Placenta MICROSCOPIC DIAGNOSIS A. Ruby placenta, 28 weeks gestation, primary section: * 296.6 grams (approximately 85th percentile for gestational age) * Three vessel umbilical cord with mild acute funisitis * membranes with acute chorioamnionitis, negative for pigmented macrophages MICROSCOPIC DESCRIPTION Slides are reviewed. GROSS DESCRIPTION A. Received in formalin in a container labeled with the patient's name, date of , and with no further designation is a 15.5 x 13.5 x 2.8 cm ruby discoid placenta with a trimmed weight of 296.6 g. The marginally located white-yu umbilical cord exhibits 3 vessels and is 30 cm in length by 1.3 cm in diameter. There are approximately 4 coils per 10 cm. The membranes are pale white-yang and partially stripped with an 80% circummarginate insertion and 20% marginal insertion. The surface is pale blue-yang with thin, prominent vasculature. There is white-yu, rubbery possible subchorionic fibrin at the periphery, comprising less than 5% of the surface. The maternal surface displays red-yang cotyledons that appear complete with a scant amount of easily removed blood clot material. Serial sections reveal red and spongy cut surfaces with a 1.3 x 1.0 x 1.0 cm yu and rubbery focus with central hemorrhage abutting the surface. This focus comprises less than 2% of the parenchymal surface. Road Driver sections:A1. Umbilical cord and membrane rollA2. Full-thickness section with possible subchorionic fibrinA3. Full-thickness section with rubbery focusA4. Full-thickness section [facility] 10-20-2024 CPT:43934
[2024-10-19] MEDS: Oxytocin 15 Units/NS 250ml 15 UNITS/250 ML IV.SOLN 83 UNITS IV (19:41)
[2024-10-19] MEDS: Ketorolac 30 MG/ML Syringe IV (20:04)
[2024-10-19 21:52] LABS: Pathology Specimen OB SEE PATHOLOGY REPORT
[2024-10-19] MEDS: Lactated Ringers 1,000 ML 100 ML IV (22:54)
[2024-10-20] VITALS (8 sets, daily range): BP systolic 83–118; BP diastolic 53–69; PULSE 60–110; RESP 16–18; TEMP 36.6–37.3; O2SAT 97–100
[2024-10-20] MEDS: Cefazolin 1 GM/50 ML BAG IV ×2 (02:22→10:00)
[2024-10-20] MEDS: Ketorolac 30 MG/ML Syringe IV ×3 (02:31→15:07)
[2024-10-20] MEDS: Acetaminophen 500 MG Tablet 1000 MG PO ×3 (06:07→20:02)
[2024-10-20 06:22] LABS: Hemoglobin 8.9 g/dL (12.0-15.0); Mean Corpuscular Hgb 31.2 pg (27.0-32.0); Mean Corpuscular Volume 94.7 fL (81-99); Mean Platelet Vol. 9.9 fl (6.2-12.0); Platelet Count 197 K/mm3 (150-450); RBC Distribution Width SD 44.6 fl (35.1-43.9); Red Blood Count 2.85 M/mm3 (4.2-5.4); White Blood Count 19.3 K/mm3 (4.4-11.0)
[2024-10-20] MEDS: 0.9% Saline Lock 10 ML Syringe IV ×4 (08:23→15:07)
[2024-10-20] MEDS: Enoxaparin 40 MG/0.4 ML Syringe SC (08:23)
[2024-10-20 10:00] LABS: Free T3 2.2 pg/mL (2.18-3.98)
[2024-10-20] MEDS: Senna/Docusate Sodium 1 Tablet PO (11:04)
--- NOTE | 2024-10-20 13:33 | PCM.PN.OB ---
Subjective Subjective Patient coping appropriately. Tolerating PO. Ambulating and voiding without difficulty. Denies chest pain, shortness of breath, calf pain/swelling, fevers, chills, lightheadedness. Objective Data Objective Data Vital Signs: Vital Signs Temp Pulse Resp BP Pulse Ox O2 Del Method 97.9 F 60 16 103/69 98 Room Air 10/20/24 13:24 10/20/24 13:24 10/20/24 13:24 10/20/24 13:24 10/20/24 13:24 10/20/24 13:24 Oxygen Delivery Method Room Air Weight: 176 lb 6 oz Body Mass Index (BMI) 30.2 Intake & Output: Intake and Output for Last 24 Hours 10/18/24 10/19/24 10/20/24 23:59 23:59 23:59 Intake Total 1447.5 / 1447.5 493.33 / 493.33 Output Total 1200 / 1200 300 / 300 Balance 247.5 / 247.5 193.33 / 193.33 Lab / Micro Data 10/20/24 06:15 10/19/24 16:30 Labs: Laboratory Results - last 24 hr 10/19/24 16:30: WBC 17.6 H, RBC 3.21 L, Hgb 10.2 L, Hct 30.1 L, MCV 93.8, MCH 31.8, MCHC 33.9, RDW Std Deviation 44.7 H, RDW Coeff of Chris 13.0, Plt Count 226, MPV 10.0, Immature Gran % (Auto) 0.500, Neut % (Auto) 81.5 H, Lymph % (Auto) 11.1 L, [place] % (Auto) 6.5, Eos % (Auto) 0.2, Baso % (Auto) 0.2, Absolute Neuts (auto) 14.3 H, Absolute Lymphs (auto) 1.96, Nucleated RBC % 0, PT 13.4, INR 1.0, APTT 28.7, Fibrinogen 521 H, Sodium 136, Potassium 3.6, Chloride 105, Carbon Dioxide 19.5 L, Anion Gap 12, BUN 7, Creatinine 0.55 L, Estim Creat Clear Calc 144.70, Est GFR (MDRD) Non-Af 122, BUN/Creatinine Ratio 12.3, Glucose 83, Calcium 8.5, Total Bilirubin < 0.15, AST 20, ALT 11, Alkaline Phosphatase 146 H, Total Protein 6.6, Albumin 3.4 L, Globulin 3.2, Albumin/Globulin Ratio 1.1, TSH 0.201 L, Syphilis Total Ab Nonreactive, Blood Type O POSITIVE, Antibody Screen NEGATIVE 10/19/24 17:45: Urine Color Straw, Urine Clarity Cloudy, Urine pH 6.5, Ur Specific [place] 1.010, Urine Protein 15 H, Urine Glucose (UA) Normal, Urine Ketones 15 H, Urine Occult Blood 150 H, Urine Nitrite Positive H, Urine Bilirubin Negative, Urine Urobilinogen Normal, Ur Leukocyte Esterase 500 H, Urine RBC 0 SEEN, Urine WBC >100 SEEN, Ur Squamous Epith Cells 0-5 SEEN, Ur Transition Epith Cell 0-5 SEEN, Urine Bacteria 4+, Urine Mucus 0 SEEN, Urine Opiates Screen NEGATIVE, Urine Methadone Screen NEGATIVE, Ur Barbiturates Screen NEGATIVE, Ur Phencyclidine Scrn NEGATIVE, Ur Amphetamines Screen NEGATIVE, MDMA (Ecstasy) Screen TNP, U Benzodiazepines Scrn NEGATIVE, Urine Cocaine Screen NEGATIVE, U Cannabinoids Screen NEGATIVE, Ur Drug Screen Comment 10/20/24 06:15: WBC 19.3 H, RBC 2.85 L, Hgb 8.9 L, Hct 27.0 L, MCV 94.7, MCH 31.2, MCHC 33.0, RDW Std Deviation 44.6 H, RDW Coeff of Chris 13.0, Plt Count 197, MPV 9.9 10/20/24 08:51: Free T4 0.70 L, Free T3 pg/dL 2.2 Micro: Microbiology 10/19/24 18:25 Tissue - Placenta Wound Culture - Preliminary 10/19/24 18:25 Tissue - Placenta Wound Culture - Preliminary No growth-Final to follow Radiography Diagnostic Testing: Radiology Impression Obstetrics Ultrasound 10/19/24 14:18 IMPRESSION: demise. Reading Location: [id number] Constitutional Constitutional: Reports systems reviewed and no addt'l complaints, except as documented Cardiovascular Cardiovascular: Reports systems reviewed and no addt'l complaints, except as documented Respiratory/Chest Respiratory/Chest: Reports systems reviewed and no addt'l complaints, except as documented Gastrointestinal Gastrointestinal: Reports systems reviewed and no addt'l complaints, except as documented Physical Exam Const alert, oriented x3 and no apparent distress HEENT Head and Scalp: atraumatic Resp normal respiratory effort GI soft to palpation and non-tender Inspection: incision intact, healing well and drainage (none) Bimanual Exam - Vag & Uterus: uterus non-tender Uterus Palpation: uterus fundus firm (below Umbilicus) Assessment & Plan (1) Abnormal thyroid stimulating hormone (TSH) level: COMMENT: low TSH, low T4 (2) Status post section: COMMENT: for breech demise (3) demise, greater than 22 weeks, antepartum: PLAN: Plan s/p LTCS PPD # 1 1. routine post care 2. abnormal thyroid testing- follow up with endocrine 3. rh positive 4. rubella immune continue 24 hours antibiotics
--- NOTE | 2024-10-20 13:56 | CASEMGMT ---
Social Work Labor and Delivery Unit Referral:? grief/ loss/ bereavement History:? Sw met with patient in room. Sw introduced self to patient and explained sw role. Offered emotional support, encouragement and condolences relating to loss of her baby girl at 28 weeks gestation. MOB was alone in room, stating that father of baby (Fabiano) just left to gather his thoughts and have some quiet time to himself. Patient states that she and Fabiano have been together for one year, but have known each other since she was 14 years old, baby would have been their first child together. Patient reports that she has three older children: Godfrey (10), Leeland (6) and Scarlet (2). Fabiano has one other child: Johnson (11). Patient states that she and Fabiano do not live together at this time because he is currently living with his mother who needs assistance. Patient states that her mother lives with her and will be able to help her as she heals from a delivery. Patient states that she is thankful that she needed a to deliver baby, stating that going through a vaginal delivery would have been more traumatizing to her. Assessment:? Patient is reflective about her delivery and unexpected loss of baby. Patient appropriately tearful at times and states that she is taking things one moment at a time. Patient initially unsure if she wanted to hold baby, but ultimately chose to because she did not want to regret not holding her. Patient also agreed to having photos taken of baby. Sw talked to patient about varying emotional responses that may come and go during this period. Sw normalized reactions and reinforced with patient the importance of self care throughout this time. Patient states that she has adequate supports found in Fabiano and her mom. Sw provided patient with information on the grief cycle as related to parents who have lost a child, local supports available and encouraged mental health supports if appropriate. Educated to local grief support group as well. Patient expressed appreciation for sw meeting with her. Plan:??? Patietn will discharge tomorrow, following her delivery. Patient has chosen [facility] for arrangements for the baby. Patient has been provided with grief resources and supports available. Beronica Burgos, COMPUTER REPAIRER, ARM REST BUILDER No further needs requested or indicated.
[2024-10-20] MEDS: Ibuprofen 600 MG Tablet PO (20:02)
[2024-10-21 02:00] VITALS: BP 95/50; PULSE 96; RESP 16; TEMP 36.4; O2SAT 99
[2024-10-21 02:07] VITALS: BP 95/50; PULSE 97; PULSE 99; O2SAT 97
[2024-10-21] MEDS: Ibuprofen 600 MG Tablet PO ×2 (02:08→08:18)
[2024-10-21] MEDS: Acetaminophen 500 MG Tablet 1000 MG PO ×2 (02:08→08:18)
[2024-10-21] MEDS: Enoxaparin 40 MG/0.4 ML Syringe SC (06:08)
[2024-10-21 06:25] LABS: Absolute Lymphocyte Count 2.15 X10^3/uL (0.83-4.51); Absolute Neutrophil Count 12.1 X10^3/uL (2.0-7.7); Basophil# 0.03 X10^3/uL; Basophil% 0.2 % (0-1); Eosinophils% 0.6 % (0-5); Hemoglobin 9.2 g/dL (12.0-15.0); Lymphocyte # 2.15 X10^3/ul (0.83-4.51); Lymphocyte % 13.7 % (19-41); Mean Corp Hgb Conc 32.9 g/dL (32-36); Mean Corpuscular Hgb 31.5 pg (27.0-32.0); Mean Corpuscular Volume 95.9 fL (81-99); Mean Platelet Vol. 9.8 fl (6.2-12.0); Monocyte# 1.25 X10^3/uL; NRBC Flagged by Analyzer 0 % (0-5); Neutrophil % 76.9 % (47-70); Platelet Count 196 K/mm3 (150-450); RBC Distribution Width CV 13.2 % (11.6-14.6); RBC Distribution Width SD 46.5 fl (35.1-43.9); Red Blood Count 2.92 M/mm3 (4.2-5.4); White Blood Count 15.7 K/mm3 (4.4-11.0)
[2024-10-21] MEDS: Senna/Docusate Sodium 1 Tablet PO (08:18)
[2024-10-21 08:30] VITALS: BP 104/64; PULSE 95
[2024-10-21 08:31] VITALS: BP 104/64; PULSE 95; RESP 18; TEMP 36.7; O2SAT 98
--- NOTE | 2024-10-21 10:23 | PN.OBGYN_ITS ---
Subjective Subjective Patient coping appropriately. Tolerating PO. Ambulating and voiding without difficulty. Denies chest pain, shortness of breath, calf pain/swelling, fevers, chills, lightheadedness. Objective Data Objective Data Vital Signs: Vital Signs Temp Pulse Resp BP Pulse Ox O2 Del Method 98.0 F 95 18 104/64 98 Room Air 10/21/24 08:31 10/21/24 08:31 10/21/24 08:31 10/21/24 08:31 10/21/24 08:31 10/21/24 08:31 Oxygen Delivery Method Room Air Weight: 176 lb 6 oz Body Mass Index (BMI) 30.2 Intake & Output: Intake and Output for Last 24 Hours 10/19/24 10/20/24 10/21/24 23:59 23:59 23:59 Intake Total 1447.5 / 1447.5 493.33 / 493.33 Output Total 1200 / 1200 800 / 800 Balance 247.5 / 247.5 -306.67 / -306.67 Lab / Micro Data 10/21/24 06:13 10/19/24 16:30 Labs: Laboratory Results - last 24 hr 10/21/24 06:13: WBC 15.7 H, RBC 2.92 L, Hgb 9.2 L, Hct 28.0 L, MCV 95.9, MCH 31.5, MCHC 32.9, RDW Std Deviation 46.5 H, RDW Coeff of Chris 13.2, Plt Count 196, MPV 9.8, Immature Gran % (Auto) 0.600, Neut % (Auto) 76.9 H, Lymph % (Auto) 13.7 L, [place] % (Auto) 8.0, Eos % (Auto) 0.6, Baso % (Auto) 0.2, Absolute Neuts (auto) 12.1 H, Absolute Lymphs (auto) 2.15, Nucleated RBC % 0 Micro: Microbiology 10/19/24 18:25 Tissue - Placenta Gram Stain - Final 10/19/24 18:25 Tissue - Placenta Wound Culture - Preliminary Coag Negative Staph 10/19/24 18:25 Tissue - Placenta Gram Stain - Final Radiography Diagnostic Testing: Radiology Impression Obstetrics Ultrasound 10/19/24 14:18 IMPRESSION: demise. Reading Location: [facility] Constitutional Constitutional: Reports systems reviewed and no addt'l complaints, except as documented Cardiovascular Cardiovascular: Reports systems reviewed and no addt'l complaints, except as documented Respiratory/Chest Respiratory/Chest: Reports systems reviewed and no addt'l complaints, except as documented Gastrointestinal Gastrointestinal: Reports systems reviewed and no addt'l complaints, except as documented; Denies bloating, constipation, cramping, diarrhea, nausea or vomiting Genitourinary Genitourinary: Reports other Details: Denies vaginal odor, vaginal bleeding, or vaginal discharge ; Denies difficulty urinating or flank pain Physical Exam Const alert, oriented x3 and no apparent distress HEENT normocephalic Head and Scalp: atraumatic Resp normal respiratory effort and normal air movement GI soft to palpation and non-tender Inspection: incision intact, healing well and drainage (none) no CVA tenderness Bimanual Exam - Vag & Uterus: uterus non-tender Uterus Palpation: uterus fundus firm (below Umbilicus) Extremity normal to inspection General Extremity: edema bilateral (trace ) Assessment & Plan (1) Abnormal thyroid stimulating hormone (TSH) level: COMMENT: low TSH, low T4 (2) Status post section: COMMENT: for breech demise (3) demise, greater than 22 weeks, antepartum: PLAN: Plan s/p LTCS PPD # 2 1. routine post care 2. abnormal thyroid testing- follow up with endocrine 3. rh positive 4. rubella immune s/p 24 hours antibiotics dc home
[2024-10-25 13:08] LABS: Anti-Cardiolipin Ab, IgA, Qn < 9 APL U/mL (0-11); Anti-Cardiolipin Ab, IgG, Qn < 9 GPL U/mL (0-14); Anti-Cardiolipin Ab, IgM, Qn < 9 MPL U/mL (0-12); Beta-2-Glycoprotein I IgA <9 (0-25); Beta-2-Glycoprotein I IgG <9 (0-20); Beta-2-Glycoprotein I IgM <9 (0-32); CMV Acute Antibody IgM < 30.0 AU/mL (0.0-29.9); Dilute Prothrombin Time (dPT) 34.7 sec (0.0-47.6); Dilute Russell Viper Venom 41.6 sec (0.0-47.0); Interpretation Comment: (.); PARVOVIRUS B19 IGG 0.1 index (0.0-0.8); PARVOVIRUS B19 IGM 0.4 index (0.0-0.8); PTT-LA 40.3 sec (0.0-43.5); Thrombin Time 16.6 sec (0.0-23.0); Toxoplasma Gondii IgG < 3.0 IU/mL (0.0-7.1); Toxoplasma Gondii IgM < 3.0 AU/mL (0.0-7.9); dPT Confirm Ratio 1.17 Ratio (0.00-1.34)
== END 2024-10-21 11:50 | disposition home or self-care (01) | DRG 787 ==
LOC: WP 16:57
PROVIDERS: Admitting Provider Obstetrics & Gynecology; PCP Obstetrics & Gynecology; Referring Provider Obstetrics & Gynecology; Visit Provider Obstetrics & Gynecology
DX: O36.4XX0 Maternal care for intrauterine death, not applicable or unspecified (principal); O98.32 Other infections with a predominantly sexual mode of transmission complicating childbirth; Z3A.28 28 weeks gestation of pregnancy; A60.00 Herpesviral infection of urogenital system, unspecified; F17.210 Nicotine dependence, cigarettes, uncomplicated; O32.1XX0 Maternal care for breech presentation, not applicable or unspecified; O99.334 Smoking (tobacco) complicating childbirth; Z87.440 Personal history of urinary (tract) infections; O69.1XX0 Labor and delivery complicated by cord around neck, with compression, not applicable or unspecified; Z37.1 Single stillbirth; Z87.59 Personal history of other complications of pregnancy, childbirth and the puerperium
CPT/HCPCS: 59050; 76815; 80053; 80307; 81001; 84439; 84443; 84481; 85025; 85027; 85384; 85460; 85610; 85730; 86146; 86147; 86644; 86645; 86747; 86777; 86778; 86780; 86850; 86900; 86901; 87070; 87075; 87077; 87186; 87205; 88307; 99221; A4216; G0378; J2405

== ENCOUNTER → 2024-11-16 | Outpatient (CLI) | payer BC, MEDICAID, SELFPAY ==
[2024-11-16 17:33] LABS: Free T3 3.3 pg/mL (2.18-3.98); Thyroid Stim Hormone (TSH) 0.256 uIU/mL (0.300-4.200)
[2024-11-18 04:07] LABS: Thyroid Peroxidase AB 11 IU/mL (0-34)
== END | disposition home or self-care (01) ==
LOC: BIMLAB 13:04
PROVIDERS: PCP Obstetrics & Gynecology; Referring Provider Internal Medicine Endocrinology, Diabetes & Metabolism; Visit Provider Internal Medicine Endocrinology, Diabetes & Metabolism
DX: R79.89 Other specified abnormal findings of blood chemistry (principal)
CPT/HCPCS: 36415; 84443; 84481; 86376